=== PATIENT | female | born 1950 | race Caucasian/White ===

== ENCOUNTER 2016-11-21 15:05 | Emergency (ER) | payer MEDICARE, MEDICAID ==
[2016-11-21] MEDS ORDERED: ACETAMINOPHEN 325 MG TAB As Ordered ONE (17:42)
--- NOTE | 2016-11-21 17:54 | REP ---
Clinical: Headache. Comparison: 01/16/2015. Findings: Age-related atrophy and microvascular ischemic changes are appreciated. The ventricles and sulci are symmetric. Pineda-white differentiation is maintained. There is no evidence for acute intracranial hemorrhage, mass/mass effect, pathology or infarction. No extra-axial fluid collection. Calvarium is intact. Paranasal sinuses and mastoid air cells are clear. Impression: Age related atrophy and microvascular ischemic changes. No acute intracranial hemorrhage, infarction, or mass/mass effect. Signed by Haim Cee MD 11/21/2016 05:46 P
[2016-11-21 18:28] LABS: BASO % 0.7 % (0.0-1.0); EOS # 0.2 K/mm3 (0.0-0.50); LARGE UNSTAINED CELL # 0.2 K/mm3 (0.0-0.4); LARGE UNSTAINED CELL % 2.1 % (0.0-4.0); LYMPH # 1.8 K/mm3 (1.5-4.5); LYMPH % 24.8 % (24.0-44.0); MEAN CORPUSCULAR HEMOGLOBIN 28.2 pg (27.0-33.0); MEAN CORPUSCULAR HGB CONC 35.3 g/dl (32.0-36.5); MEAN CORPUSCULAR VOLUME 79.9 fl (80.0-96.0); MONO # 0.4 K/mm3 (0.0-0.8); MONO % 6.1 % (0.0-5.0); NEUTROPHILS # 4.5 K/mm3 (1.8-7.7); NEUTROPHILS % 63.3 % (36.0-66.0); PLATELET COUNT, AUTOMATED 171 k/mm3 (150-450); RED CELL DISTRIBUTION WIDTH 13.4 % (11.5-14.5); WHITE BLOOD COUNT 7.1 K/mm3 (4.0-10.0)
[2016-11-21 18:47] LABS: CALCIUM LEVEL 9.1 MG/DL (8.8-10.2); CREATININE FOR GFR 1.09 MG/DL (0.55-1.02); GLOMERULAR FILTRATION RATE 53.3 (>45); POTASSIUM SERUM 3.6 MEQ/L (3.5-5.1)
--- NOTE | 2016-11-21 19:14 | EDDOCDS ---
Nurse's Notes [facility] Name: Fabby Dickens Age: 66 yrs Sex: Female : 1950 Arrival Date: 11/21/2016 Time: 15:05 Bed 13 Private MD: Mel Baker Diagnosis: Headache Presentation: 11/21 15:08 Presenting complaint: Patient states: Patient complaint of headache X 5 DAYS. Blood b sugar 245. Patient insulin dependent. Denies chest pain or respiratory difficulty. Patient reports shoveling snow 5 days ago and since then lower back bothering patient. This patient has no additional risk factors. Adult Sepsis Screening: The patient does not have new or worsening altered mentation. Patient's respiratory rate is less than 22. Systolic blood pressure is greater than 100. Patient has a qSOFA score of 0- Negative Sepsis Screen. Suicide/Homicide risk assessment- the patient denies having any suicidal and/or homicidal ideations and does not present with any other emotional, behavioral or mental health complaints. Status: Patient is not a building services engineer or dependent. Transition of care: patient was not received from another setting of care. 15:08 Acuity: CYNTHIA Level 4 [facility] 15:08 Method Of Arrival: Ambulance [facility] Triage Assessment: 15:20 Headache History: This patient has a history of headaches and the character of this [facility] headache is like all previous headaches. General: Appears in no apparent distress, comfortable, Behavior is appropriate for age, cooperative. Pain: Location: head, posterior chest and back Pain currently is 9 out of 10 on a pain scale. Pain began gradually Also complains of no other associated symptoms. Neurological: Level of Consciousness is awake, alert, obeys commands, Oriented to person, place, time, Speech is normal, Facial symmetry appears normal, Facial symmetry: tongue is midline. Cardiovascular: Capillary refill < 3 seconds Heart tones present Pulses are all present. Rhythm is regular. Respiratory: Airway is patent Respiratory effort is even, unlabored, Respiratory pattern is regular, symmetrical, Breath sounds are diminished bilaterally. GI: Abdomen is non- distended Bowel sounds present X 4 quads. Abd is soft and non tender X 4 quads. Derm: Skin is pink, warm & dry. Musculoskeletal: Range of motion limited in all extremities. Historical: - Allergies: Lisinopril; - Home Meds: 1. victoza 18 mg daily 0.2 ml subcut once daily 2. levemir 16 unit daily 3. fluticasone 27.5 mg daily 1 puff each nostril 4. loratadine 10 mg Oral tab 1 tab once daily 5. ProAir HFA inhalation 108 mcg/act inhalation 2 puffs every 4-6 hours 6. omeprazole 40 mg Oral cpDR 1 cap once daily 7. Levoxyl 25 mcg Oral tab 1 tab once daily 8. simvastatin 20 mg Oral tab 1 tab once daily 9. metoprolol tartrate 25 mg Oral tab 1 tab 2 times per day 10. potassium chloride 10 mEq Oral cpER 1 cap 2 times per day 11. chlorthalidone 25 mg Oral tab .5 tab once daily 12. metformin 1,000 mg Oral tr24 1 tab once daily 13. aspirin 81 mg Oral tab 1 tab once daily 14. acetaminophen 500 mg Oral tab 1 tab as needed 15. tizanidine 4 mg oral cap 1 cap 3 times per day 16. meclizine 25 mg Oral tab 1 tab 3 times per day 17. gabapentin 100 mg Oral tab 200 mg three times a day 18. alendronate 70 mg oral tab 1 tab once wkly 19. Caltrate 600 + D 600 mg (1,500 mg)-800 unit oral chew daily 20. Drisdol 50,000 unit Oral cap 1 cap every two weeks 21. Lac-Hydrin 12 % Topical lotn twice a day 22. Sertraline 200 mg daily - PMHx: Hypertension; vitamin d deficiency; Diabetes - IDDM: controlled; Hypothyroidism; hyperlipidemia; depressive disorder; allergic rhinitis; GERD; osteopenia; appendicitis; 2 TIA's; - PSHx: both feet surgery; Appendectomy; Hysterectomy; fingetr surgery; Carpal Tunnel Repair- Left; - Social history: Smoking status: Patient states was never smoker of tobacco. Patient is hearing impaired. - Family history: Not pertinent. - : The pt / caregiver states he / she is not on anticoagulants. Home medication list is obtained from the patient. - Exposure Risk Screening:: None identified. Screenin:28 Screening information is obtained from the patient, family members. Fall risk: No risks jo3 identified. Assistance ADL's: requires no assistance with activities of daily living. Abuse/DV Screen: The patient / caregiver reports he/she is: not in a situation that causes fear, pain or injury. Nutritional screening: No deficits noted. Advance Directives: There is no active DNR order. home support is adequate. Assessment: 16:35 General: Appears in no apparent distress, Behavior is appropriate for age, cooperative. jo3 Neurological: Level of Consciousness is awake, alert, Oriented to person, place, time. Respiratory: Airway is patent Respiratory effort is even, unlabored. Derm: Skin is pink, warm & dry. 17:40 General: Appears in no apparent distress, comfortable, Behavior is appropriate for age, jo3 cooperative. Neurological: Level of Consciousness is awake, alert, Oriented to person, place, time. Respiratory: Airway is patent Respiratory effort is even, unlabored. Derm: Skin is pink, warm & dry. 18:50 General: Appears in no apparent distress, comfortable, Behavior is appropriate for age, jo3 cooperative. Neurological: Level of Consciousness is awake, alert, Oriented to person, place, time. Respiratory: Airway is patent Respiratory effort is even, unlabored. Derm: Skin is pink, warm & dry. 19:12 Reassessment: Patient appears in no apparent distress at this time. Patient denies pain tm5 at this time. Patient states feeling better. Patient states symptoms have improved. PT EATING BOXED LUNCH THAT WAS PROVIDED TO HER, VOICES NO COMPLAINTS AT THIS TIME, FAMILY MEMBER WITH HER TO PROVIDE HER A RIDE HOME . Vital Signs: 15:13 BP 145 / 74; Pulse 83; Resp 18; Temp 97.3; Pulse Ox 93% on R/A; Weight 83.01 kg (R); rn1 Height 5 ft. 3 in. (160.02 cm) (R); Pain 9/10; 19:12 BP 142 / 74; Pulse 74; Resp 18; Temp 98.4(O); Pulse Ox 98% on R/A; Pain 0/10; tm5 15:13 Body Mass Index 32.42 (83.01 kg, 160.02 cm) rn1 Vitals: 15:20 Log In Time N/A - ambulance arrival. [facility] ED Course: 15:06 Patient visited by Beatriz Dumas, Music Educator. lbd 15:06 Patient moved to [facility] lbd 15:07 Mel Baker FNP is Private Physician. lbd 15:07 Patient moved to 13 lbd 15:10 Triage Initiated [facility] 15:58 Irina Franklin[facility] jo4 15:[address] MD is Attending Physician. jo4 16:25 Patient visited by Jay Jay Payne PCA. jlf 16:58 Patient visited by Jay Jay Payne PCA. jlf 17:28 The patient / caregiver is instructed regarding the plan of care and ED course. jo3 17:29 Patient visited by Olivia Wiggins,JOSEPHINE. jo3 17:39 Patient visited by Bhavana Street MD. sd1 18:12 CT Head Without Contrast Returned. EDMS 18:16 BMP Sent. jmb 18:16 CBC with Diff Sent. jmb 18:17 Patient visited by Olivia Wiggins RN. jo3 18:19 [facility] Payment Agreement was scanned into [employer] and attached to record. gjb 18:46 Patient visited by Jay Jay Payne PCA. jlf 18:50 No IV's were initiated during this patient's visit. No procedures done that require jo3 assistance. 19:02 Mel Baker FNP is Referral Physician. jo4 19:06 Patient visited by Lola Day RN. tm5 19:06 Report received from Olivia BURTON, assumed care of pt at this time. tm5 19:12 Patient visited by Lola Day RN. tm5 Administered Medications: 17:45 Drug: Acetaminophen 325 mg [acetaminophen 325 mg tablet (1 tabs)] Route: PO; js13 Order Results: Lab Order: CBC with Diff; SPEC'M 11/21/16 18:15 Test: WHITE BLOOD COUNT; Value: 7.1; Range: 4.0-10.0; Units: K/mm3; Status: F Test: RED BLOOD COUNT; Value: 5.08; Range: 4.00-5.40; Units: M/mm3; Status: F Test: HEMOGLOBIN; Value: 14.3; Range: 12.0-16.0; Units: g/dl; Status: F Test: HEMATOCRIT; Value: 40.6; Range: 36.0-47.0; Units: %; Status: F Test: MEAN CORPUSCULAR VOLUME; Value: 79.9; Range: 80.0-96.0; Abnormal: Below low normal; Units: fl; Status: F Test: MEAN CORPUSCULAR HEMOGLOBIN; Value: 28.2; Range: 27.0-33.0; Units: pg; Status: F Test: MEAN CORPUSCULAR HGB CONC; Value: 35.3; Range: 32.0-36.5; Units: g/dl; Status: F Test: RED CELL DISTRIBUTION WIDTH; Value: 13.4; Range: 11.5-14.5; Units: %; Status: F Test: PLATELET COUNT, AUTOMATED; Value: 171; Range: 150-450; Units: k/mm3; Status: F Test: NEUTROPHILS %; Value: 63.3; Range: 36.0-66.0; Units: %; Status: F Test: LYMPH %; Value: 24.8; Range: 24.0-44.0; Units: %; Status: F Test: MONO %; Value: 6.1; Range: 0.0-5.0; Abnormal: Above high normal; Units: %; Status: F Test: EOS %; Value: 3.0; Range: 0.0-3.0; Units: %; Status: F Test: BASO %; Value: 0.7; Range: 0.0-1.0; Units: %; Status: F Test: LARGE UNSTAINED CELL %; Value: 2.1; Range: 0.0-4.0; Units: %; Status: F Test: NEUTROPHILS #; Value: 4.5; Range: 1.8-7.7; Units: K/mm3; Status: F Test: LYMPH #; Value: 1.8; Range: 1.5-4.5; Units: K/mm3; Status: F Test: MONO #; Value: 0.4; Range: 0.0-0.8; Units: K/mm3; Status: F Test: EOS #; Value: 0.2; Range: 0.0-0.50; Units: K/mm3; Status: F Test: BASO #; Value: 0.0; Range: 0.0-0.2; Units: K/mm3; Status: F Test: LARGE UNSTAINED CELL #; Value: 0.2; Range: 0.0-0.4; Units: K/mm3; Status: F Lab Order: [facility]; SPEC'M 11/21/16 18:15 Test: GLUCOSE, FASTING; Value: 194; Range: 80-110; Abnormal: Above high normal; Units: MG/DL; Status: F Test: BLOOD UREA NITROGEN; Value: 22; Range: 7-18; Abnormal: Above high normal; Units: MG/DL; Status: F Test: CREATININE FOR GFR; Value: 1.09; Range: 0.55-1.02; Abnormal: Above high normal; Units: MG/DL; Status: F Test: GLOMERULAR FILTRATION RATE; Value: 53.3; Range: >45; Status: F Test: SODIUM LEVEL; Value: 139; Range: 136-145; Units: MEQ/L; Status: F Test: POTASSIUM SERUM; Value: 3.6; Range: 3.5-5.1; Units: MEQ/L; Status: F Test: CHLORIDE LEVEL; Value: 103; Range: 98-107; Units: MEQ/L; Status: F Test: CARBON DIOXIDE LEVEL; Value: 28; Range: 21-32; Units: MEQ/L; Status: F Test: ANION GAP; Value: 8; Range: 8-16; Units: MEQ/L; Status: F Test: CALCIUM LEVEL; Value: 9.1; Range: 8.8-10.2; Units: MG/DL; Status: F Test Note: ; Units are mL/min/1.73 m2 Chronic Kidney Disease Staging per NKF: Stage I & II GFR >=60 Normal to Mildly Decreased Stage III GFR 30-59 Moderately Decreased Stage IV GFR 15-29 Severely Decreased Stage V GFR <15 Very Little GFR Left ESRD GFR <15 on LANDSCAPE DRAFTER Radiology Order: CT Head Without Contrast Test: CT Head Without Contrast REASON FOR EXAMINATION: Headache; Clinical: Headache.; ; Comparison: 01/16/2015.; ; Findings:; Age-related atrophy and microvascular ischemic changes are appreciated. The; ventricles and sulci are symmetric. Pineda-white differentiation is maintained.; There is no evidence for acute intracranial hemorrhage, mass/mass effect,; pathology or infarction. No extra-axial fluid collection. Calvarium is intact.; Paranasal sinuses and mastoid air cells are clear.; ; Impression:; Age related atrophy and microvascular ischemic changes.; No acute intracranial hemorrhage, infarction, or mass/mass effect.; ; ; Signed by; Haim Cee MD 11/21/2016 05:46 P; Outcome: 19:02 Discharge ordered by Provider. jo4 19:12 Discharge Assessment: Patient awake, alert and oriented x 3. No cognitive and/or tm5 functional deficits noted. Patient verbalized understanding of disposition instructions. patient administered narcotics -. 19:13 Discharge Assessment: patient administered narcotics - no. The following High Risk tm5 Discharge criteria are identified: None. Discharged to home ambulatory, with family. Condition: good Condition: stable Condition: improved. Discharge instructions given to patient, Instructed on discharge instructions, follow up and referral plans. Demonstrated understanding of instructions. CT Study completed. Property :Personal belongings accompany Pt. 19:14 Patient left the ED. tm5 Signatures: Dispatcher [employer] EDMS Bhavana Street MD MD sd1 Beatriz Dumas, Music Educator Unit lbd Olivia Wiggins,RN RN jo3 Olivia Jamison,RN RN js13 Chico Harper,RN RN Jay Jay Islas, SUSIE C++ QUANT DEVELOPER Fernando Viramontes rn1 Yoselin Horner Jane, DO DO jo4 Lola Day,RN RN tm5 KENN
--- NOTE | 2016-11-21 19:14 | EDDOCDS ---
Physician Documentation [facility] Name: Fabby Dickens Age: 66 yrs Sex: Female : 1950 Arrival Date: 11/21/2016 Time: 15:05 Bed 13 Private MD: Mel Bkaer Disposition: 11/21/16 19:02 Discharged to Home/Self Care. Impression: Headache. - Condition is Stable. - Discharge Instructions: General Headache Without Cause. - Medication Reconciliation, Local Pharmacy Hours form. - Follow up: Mel Baker FNP; When: 1 week; Reason: Recheck today's complaints. - Problem is new. - Symptoms have improved. - Notes: You were evaluated in the emergency department for a headache. Laboratory results were within normal limits. Your blood sugar level had decreased to 194. Your head CT showed age related changes and no acute abnormalities. Pain medication was administered which provided some relief. Please follow-up with Mel Baker in 1 week. Historical: - Allergies: Lisinopril; - Home Meds: 1. victoza 18 mg daily 0.2 ml subcut once daily 2. levemir 16 unit daily 3. fluticasone 27.5 mg daily 1 puff each nostril 4. loratadine 10 mg Oral tab 1 tab once daily 5. ProAir HFA inhalation 108 mcg/act inhalation 2 puffs every 4-6 hours 6. omeprazole 40 mg Oral cpDR 1 cap once daily 7. Levoxyl 25 mcg Oral tab 1 tab once daily 8. simvastatin 20 mg Oral tab 1 tab once daily 9. metoprolol tartrate 25 mg Oral tab 1 tab 2 times per day 10. potassium chloride 10 mEq Oral cpER 1 cap 2 times per day 11. chlorthalidone 25 mg Oral tab .5 tab once daily 12. metformin 1,000 mg Oral tr24 1 tab once daily 13. aspirin 81 mg Oral tab 1 tab once daily 14. acetaminophen 500 mg Oral tab 1 tab as needed 15. tizanidine 4 mg oral cap 1 cap 3 times per day 16. meclizine 25 mg Oral tab 1 tab 3 times per day 17. gabapentin 100 mg Oral tab 200 mg three times a day 18. alendronate 70 mg oral tab 1 tab once wkly 19. Caltrate 600 + D 600 mg (1,500 mg)-800 unit oral chew daily 20. Drisdol 50,000 unit Oral cap 1 cap every two weeks 21. Lac-Hydrin 12 % Topical lotn twice a day 22. Sertraline 200 mg daily - PMHx: Hypertension; vitamin d deficiency; Diabetes - IDDM: controlled; Hypothyroidism; hyperlipidemia; depressive disorder; allergic rhinitis; GERD; osteopenia; appendicitis; 2 TIA's; - PSHx: both feet surgery; Appendectomy; Hysterectomy; fingetr surgery; Carpal Tunnel Repair- Left; - Social history: Smoking status: Patient states was never smoker of tobacco. Patient is hearing impaired. - Family history: Not pertinent. - : The pt / caregiver states he / she is not on anticoagulants. Home medication list is obtained from the patient. - Exposure Risk Screening:: None identified. Vital Signs: 11/21 15:13 BP 145 / 74; Pulse 83; Resp 18; Temp 97.3; Pulse Ox 93% on R/A; Weight 83.01 kg / rn1 183.01 lbs (R); Height 5 ft. 3 in. (160.02 cm) (R); Pain 9/10; 19:12 BP 142 / 74; Pulse 74; Resp 18; Temp 98.4(O); Pulse Ox 98% on R/A; Pain 0/10; tm5 15:13 Body Mass Index 32.42 (83.01 kg, 160.02 cm) rn1 MDM: 17:30 Acetaminophen Tablet 325 mg PO once ordered. jo4 17:32 CBC with Diff Ordered. EDMS 17:32 BMP Ordered. EDMS 17:39 CT Head Without Contrast Ordered. EDMS 18:19 [facility] Payment Agreement was scanned into [employer] and attached to record. gjb 18:19 Financial registration complete. gjb 18:23 CT Head Without Contrast Reviewed. jo4 18:31 CBC with Diff Reviewed. jo4 18:51 BMP Reviewed. jo4 Administered Medications: 17:45 Drug: Acetaminophen 325 mg [acetaminophen 325 mg tablet (1 tabs)] Route: PO; js13 Signatures: Dispatcher [employer] EDMS Olivia Wiggins RN RN jo3 Chico Harper RN RN jmb Beck, Gabriela banner [facility] Irina Franklin DO DO jo4 Lola Day RN RN tm5 Olivia Jamison RN js13 The chart was reviewed and I authenticate all verbal orders and agree with the evaluation and treatment provided.Corrections: (The following items were deleted from the chart) 17:39 17:31 CT Chest without contrast+CT ordered. EDMS EDMS Attachments: 18:19 [facility] Payment Agreement [email or web address]
--- NOTE | 2016-11-23 20:15 | EDDOCDS ---
Physician Documentation [facility] Name: Fabby Dickens Age: 66 yrs Sex: Female : 1950 Arrival Date: 11/21/2016 Time: 15:05 Bed 13 Private MD: Mel Baker Disposition: 11/21/16 19:02 Discharged to Home/Self Care. Impression: Headache. - Condition is Stable. - Discharge Instructions: General Headache Without Cause. - Medication Reconciliation, Local Pharmacy Hours form. - Follow up: Mel Baker FNP; When: 1 week; Reason: Recheck today's complaints. - Problem is new. - Symptoms have improved. - Notes: You were evaluated in the emergency department for a headache. Laboratory results were within normal limits. Your blood sugar level had decreased to 194. Your head CT showed age related changes and no acute abnormalities. Pain medication was administered which provided some relief. Please follow-up with Mel Baker in 1 week. Historical: - Allergies: Lisinopril; - Home Meds: 1. victoza 18 mg daily 0.2 ml subcut once daily 2. levemir 16 unit daily 3. fluticasone 27.5 mg daily 1 puff each nostril 4. loratadine 10 mg Oral tab 1 tab once daily 5. ProAir HFA inhalation 108 mcg/act inhalation 2 puffs every 4-6 hours 6. omeprazole 40 mg Oral cpDR 1 cap once daily 7. Levoxyl 25 mcg Oral tab 1 tab once daily 8. simvastatin 20 mg Oral tab 1 tab once daily 9. metoprolol tartrate 25 mg Oral tab 1 tab 2 times per day 10. potassium chloride 10 mEq Oral cpER 1 cap 2 times per day 11. chlorthalidone 25 mg Oral tab .5 tab once daily 12. metformin 1,000 mg Oral tr24 1 tab once daily 13. aspirin 81 mg Oral tab 1 tab once daily 14. acetaminophen 500 mg Oral tab 1 tab as needed 15. tizanidine 4 mg oral cap 1 cap 3 times per day 16. meclizine 25 mg Oral tab 1 tab 3 times per day 17. gabapentin 100 mg Oral tab 200 mg three times a day 18. alendronate 70 mg oral tab 1 tab once wkly 19. Caltrate 600 + D 600 mg (1,500 mg)-800 unit oral chew daily 20. Drisdol 50,000 unit Oral cap 1 cap every two weeks 21. Lac-Hydrin 12 % Topical lotn twice a day 22. Sertraline 200 mg daily - PMHx: Hypertension; vitamin d deficiency; Diabetes - IDDM: controlled; Hypothyroidism; hyperlipidemia; depressive disorder; allergic rhinitis; GERD; osteopenia; appendicitis; 2 TIA's; - PSHx: both feet surgery; Appendectomy; Hysterectomy; fingetr surgery; Carpal Tunnel Repair- Left; - Social history: Smoking status: Patient states was never smoker of tobacco. Patient is hearing impaired. - Family history: Not pertinent. - : The pt / caregiver states he / she is not on anticoagulants. Home medication list is obtained from the patient. - Exposure Risk Screening:: None identified. Vital Signs: 11/21 15:13 BP 145 / 74; Pulse 83; Resp 18; Temp 97.3; Pulse Ox 93% on R/A; Weight 83.01 kg / rn1 183.01 lbs (R); Height 5 ft. 3 in. (160.02 cm) (R); Pain 9/10; 19:12 BP 142 / 74; Pulse 74; Resp 18; Temp 98.4(O); Pulse Ox 98% on R/A; Pain 0/10; tm5 15:13 Body Mass Index 32.42 (83.01 kg, 160.02 cm) rn1 MDM: 17:30 Acetaminophen Tablet 325 mg PO once ordered. jo4 17:32 CBC with Diff Ordered. EDMS 17:32 BMP Ordered. EDMS 17:39 CT Head Without Contrast Ordered. EDMS 18:19 [facility] Payment Agreement was scanned into [employer] and attached to record. gjb 18:19 Financial registration complete. gjb 18:23 CT Head Without Contrast Reviewed. jo4 18:31 CBC with Diff Reviewed. jo4 18:51 BMP Reviewed. jo4 11/22 08:19 T-Sheet-- Draft Copy was scanned into [employer] and attached to record. [facility] Administered Medications: 11/21 17:45 Drug: Acetaminophen 325 mg [acetaminophen 325 mg tablet (1 tabs)] Route: PO; js13 Signatures: Dispatcher [employer] EDMS Olivia Wiggins RN RN jo3 Becker, Joshua, RN RN jmb Beck, Gabriela gjb Oosthuizen, Jane, DO DO jo4 Hoffert, Bhavana seh Matice,Lola,RN RN tm5 Olivia Jamison RN js13 The chart was reviewed and I authenticate all verbal orders and agree with the evaluation and treatment provided.Corrections: (The following items were deleted from the chart) 17:39 17:31 CT Chest without contrast+CT ordered. EDMS EDMS Attachments: 18:19 [facility] Payment Agreement olesya 11/22 08:19 T-Sheet-- Draft Copy [facility] Chart Complete MTDD
--- NOTE | 2016-11-23 20:15 | EDDOCDS ---
Physician Documentation [facility] Name: Fabby Dickens Age: 66 yrs Sex: Female : 1950 Arrival Date: 11/21/2016 Time: 15:05 Bed 13 Private MD: Mel Baker Disposition: 11/21/16 19:02 Discharged to Home/Self Care. Impression: Headache. - Condition is Stable. - Discharge Instructions: General Headache Without Cause. - Medication Reconciliation, Local Pharmacy Hours form. - Follow up: Mel Baker FNP; When: 1 week; Reason: Recheck today's complaints. - Problem is new. - Symptoms have improved. - Notes: You were evaluated in the emergency department for a headache. Laboratory results were within normal limits. Your blood sugar level had decreased to 194. Your head CT showed age related changes and no acute abnormalities. Pain medication was administered which provided some relief. Please follow-up with Mel Baker in 1 week. Historical: - Allergies: Lisinopril; - Home Meds: 1. victoza 18 mg daily 0.2 ml subcut once daily 2. levemir 16 unit daily 3. fluticasone 27.5 mg daily 1 puff each nostril 4. loratadine 10 mg Oral tab 1 tab once daily 5. ProAir HFA inhalation 108 mcg/act inhalation 2 puffs every 4-6 hours 6. omeprazole 40 mg Oral cpDR 1 cap once daily 7. Levoxyl 25 mcg Oral tab 1 tab once daily 8. simvastatin 20 mg Oral tab 1 tab once daily 9. metoprolol tartrate 25 mg Oral tab 1 tab 2 times per day 10. potassium chloride 10 mEq Oral cpER 1 cap 2 times per day 11. chlorthalidone 25 mg Oral tab .5 tab once daily 12. metformin 1,000 mg Oral tr24 1 tab once daily 13. aspirin 81 mg Oral tab 1 tab once daily 14. acetaminophen 500 mg Oral tab 1 tab as needed 15. tizanidine 4 mg oral cap 1 cap 3 times per day 16. meclizine 25 mg Oral tab 1 tab 3 times per day 17. gabapentin 100 mg Oral tab 200 mg three times a day 18. alendronate 70 mg oral tab 1 tab once wkly 19. Caltrate 600 + D 600 mg (1,500 mg)-800 unit oral chew daily 20. Drisdol 50,000 unit Oral cap 1 cap every two weeks 21. Lac-Hydrin 12 % Topical lotn twice a day 22. Sertraline 200 mg daily - PMHx: Hypertension; vitamin d deficiency; Diabetes - IDDM: controlled; Hypothyroidism; hyperlipidemia; depressive disorder; allergic rhinitis; GERD; osteopenia; appendicitis; 2 TIA's; - PSHx: both feet surgery; Appendectomy; Hysterectomy; fingetr surgery; Carpal Tunnel Repair- Left; - Social history: Smoking status: Patient states was never smoker of tobacco. Patient is hearing impaired. - Family history: Not pertinent. - : The pt / caregiver states he / she is not on anticoagulants. Home medication list is obtained from the patient. - Exposure Risk Screening:: None identified. Vital Signs: 11/21 15:13 BP 145 / 74; Pulse 83; Resp 18; Temp 97.3; Pulse Ox 93% on R/A; Weight 83.01 kg / rn1 183.01 lbs (R); Height 5 ft. 3 in. (160.02 cm) (R); Pain 9/10; 19:12 BP 142 / 74; Pulse 74; Resp 18; Temp 98.4(O); Pulse Ox 98% on R/A; Pain 0/10; tm5 15:13 Body Mass Index 32.42 (83.01 kg, 160.02 cm) rn1 MDM: 17:30 Acetaminophen Tablet 325 mg PO once ordered. jo4 17:32 CBC with Diff Ordered. EDMS 17:32 BMP Ordered. EDMS 17:39 CT Head Without Contrast Ordered. EDMS 18:19 [facility] Payment Agreement was scanned into [employer] and attached to record. gjb 18:19 Financial registration complete. gjb 18:23 CT Head Without Contrast Reviewed. jo4 18:31 CBC with Diff Reviewed. jo4 18:51 BMP Reviewed. jo4 11/22 08:19 T-Sheet-- Draft Copy was scanned into [employer] and attached to record. [facility] Administered Medications: 11/21 17:45 Drug: Acetaminophen 325 mg [acetaminophen 325 mg tablet (1 tabs)] Route: PO; js13 Signatures: Dispatcher [employer] EDMS Olivia Wiggins RN RN jo3 Becker, Joshua, RN RN jmb Beck, Gabriela gjb Oosthuizen, Jane, DO DO jo4 Hoffert, Bhavana seh Matice,Lola,RN RN tm5 Olivia Jamison RN js13 The chart was reviewed and I authenticate all verbal orders and agree with the evaluation and treatment provided.Corrections: (The following items were deleted from the chart) 17:39 17:31 CT Chest without contrast+CT ordered. EDMS EDMS Attachments: 18:19 [facility] Payment Agreement olesya 11/22 08:19 T-Sheet-- Draft Copy [facility] Chart Complete MTDD
--- NOTE | 2016-11-23 20:15 | EDDOCDS ---
Nurse's Notes [facility] Name: Fabby Dickens Age: 66 yrs Sex: Female : 1950 Arrival Date: 11/21/2016 Time: 15:05 Bed 13 Private MD: Mel Baker Diagnosis: Headache Presentation: 11/21 15:08 Presenting complaint: Patient states: Patient complaint of headache X 5 DAYS. Blood b sugar 245. Patient insulin dependent. Denies chest pain or respiratory difficulty. Patient reports shoveling snow 5 days ago and since then lower back bothering patient. This patient has no additional risk factors. Adult Sepsis Screening: The patient does not have new or worsening altered mentation. Patient's respiratory rate is less than 22. Systolic blood pressure is greater than 100. Patient has a qSOFA score of 0- Negative Sepsis Screen. Suicide/Homicide risk assessment- the patient denies having any suicidal and/or homicidal ideations and does not present with any other emotional, behavioral or mental health complaints. Status: Patient is not a service planner or dependent. Transition of care: patient was not received from another setting of care. 15:08 Acuity: CYNTHIA Level 4 [facility] 15:08 Method Of Arrival: Ambulance [facility] Triage Assessment: 15:20 Headache History: This patient has a history of headaches and the character of this [facility] headache is like all previous headaches. General: Appears in no apparent distress, comfortable, Behavior is appropriate for age, cooperative. Pain: Location: head, posterior chest and back Pain currently is 9 out of 10 on a pain scale. Pain began gradually Also complains of no other associated symptoms. Neurological: Level of Consciousness is awake, alert, obeys commands, Oriented to person, place, time, Speech is normal, Facial symmetry appears normal, Facial symmetry: tongue is midline. Cardiovascular: Capillary refill < 3 seconds Heart tones present Pulses are all present. Rhythm is regular. Respiratory: Airway is patent Respiratory effort is even, unlabored, Respiratory pattern is regular, symmetrical, Breath sounds are diminished bilaterally. GI: Abdomen is non- distended Bowel sounds present X 4 quads. Abd is soft and non tender X 4 quads. Derm: Skin is pink, warm & dry. Musculoskeletal: Range of motion limited in all extremities. Historical: - Allergies: Lisinopril; - Home Meds: 1. victoza 18 mg daily 0.2 ml subcut once daily 2. levemir 16 unit daily 3. fluticasone 27.5 mg daily 1 puff each nostril 4. loratadine 10 mg Oral tab 1 tab once daily 5. ProAir HFA inhalation 108 mcg/act inhalation 2 puffs every 4-6 hours 6. omeprazole 40 mg Oral cpDR 1 cap once daily 7. Levoxyl 25 mcg Oral tab 1 tab once daily 8. simvastatin 20 mg Oral tab 1 tab once daily 9. metoprolol tartrate 25 mg Oral tab 1 tab 2 times per day 10. potassium chloride 10 mEq Oral cpER 1 cap 2 times per day 11. chlorthalidone 25 mg Oral tab .5 tab once daily 12. metformin 1,000 mg Oral tr24 1 tab once daily 13. aspirin 81 mg Oral tab 1 tab once daily 14. acetaminophen 500 mg Oral tab 1 tab as needed 15. tizanidine 4 mg oral cap 1 cap 3 times per day 16. meclizine 25 mg Oral tab 1 tab 3 times per day 17. gabapentin 100 mg Oral tab 200 mg three times a day 18. alendronate 70 mg oral tab 1 tab once wkly 19. Caltrate 600 + D 600 mg (1,500 mg)-800 unit oral chew daily 20. Drisdol 50,000 unit Oral cap 1 cap every two weeks 21. Lac-Hydrin 12 % Topical lotn twice a day 22. Sertraline 200 mg daily - PMHx: Hypertension; vitamin d deficiency; Diabetes - IDDM: controlled; Hypothyroidism; hyperlipidemia; depressive disorder; allergic rhinitis; GERD; osteopenia; appendicitis; 2 TIA's; - PSHx: both feet surgery; Appendectomy; Hysterectomy; fingetr surgery; Carpal Tunnel Repair- Left; - Social history: Smoking status: Patient states was never smoker of tobacco. Patient is hearing impaired. - Family history: Not pertinent. - : The pt / caregiver states he / she is not on anticoagulants. Home medication list is obtained from the patient. - Exposure Risk Screening:: None identified. Screenin:28 Screening information is obtained from the patient, family members. Fall risk: No risks jo3 identified. Assistance ADL's: requires no assistance with activities of daily living. Abuse/DV Screen: The patient / caregiver reports he/she is: not in a situation that causes fear, pain or injury. Nutritional screening: No deficits noted. Advance Directives: There is no active DNR order. home support is adequate. Assessment: 16:35 General: Appears in no apparent distress, Behavior is appropriate for age, cooperative. jo3 Neurological: Level of Consciousness is awake, alert, Oriented to person, place, time. Respiratory: Airway is patent Respiratory effort is even, unlabored. Derm: Skin is pink, warm & dry. 17:40 General: Appears in no apparent distress, comfortable, Behavior is appropriate for age, jo3 cooperative. Neurological: Level of Consciousness is awake, alert, Oriented to person, place, time. Respiratory: Airway is patent Respiratory effort is even, unlabored. Derm: Skin is pink, warm & dry. 18:50 General: Appears in no apparent distress, comfortable, Behavior is appropriate for age, jo3 cooperative. Neurological: Level of Consciousness is awake, alert, Oriented to person, place, time. Respiratory: Airway is patent Respiratory effort is even, unlabored. Derm: Skin is pink, warm & dry. 19:12 Reassessment: Patient appears in no apparent distress at this time. Patient denies pain tm5 at this time. Patient states feeling better. Patient states symptoms have improved. PT EATING BOXED LUNCH THAT WAS PROVIDED TO HER, VOICES NO COMPLAINTS AT THIS TIME, FAMILY MEMBER WITH HER TO PROVIDE HER A RIDE HOME . Vital Signs: 15:13 BP 145 / 74; Pulse 83; Resp 18; Temp 97.3; Pulse Ox 93% on R/A; Weight 83.01 kg (R); rn1 Height 5 ft. 3 in. (160.02 cm) (R); Pain 9/10; 19:12 BP 142 / 74; Pulse 74; Resp 18; Temp 98.4(O); Pulse Ox 98% on R/A; Pain 0/10; tm5 15:13 Body Mass Index 32.42 (83.01 kg, 160.02 cm) rn1 Vitals: 15:20 Log In Time N/A - ambulance arrival. [facility] ED Course: 15:06 Patient visited by Beatriz Dumas, Director Of Rot[employer]. lbd 15:06 Patient moved to [facility] lbd 15:07 Mel Baker FNP is Private Physician. lbd 15:07 Patient moved to 13 lbd 15:10 Triage Initiated [facility] 15:58 Irina Franklin, DO is [facility]. jo4 15:[address] MD is Attending Physician. jo4 16:25 Patient visited by Jay Jay Payne PCA. jlf 16:58 Patient visited by Jay Jay Payne PCA. jlf 17:28 The patient / caregiver is instructed regarding the plan of care and ED course. jo3 17:29 Patient visited by Olivia Wiggins,JOSEPHINE. jo3 17:39 Patient visited by Bhavana Street MD. sd1 18:12 CT Head Without Contrast Returned. EDMS 18:16 BMP Sent. jmb 18:16 CBC with Diff Sent. jmb 18:17 Patient visited by Olivia Wiggins RN. jo3 18:19 [facility] Payment Agreement was scanned into [employer] and attached to record. gjb 18:46 Patient visited by Jay Jay Payne PCA. jlf 18:50 No IV's were initiated during this patient's visit. No procedures done that require jo3 assistance. 19:02 Mel Baker FNP is Referral Physician. jo4 19:06 Patient visited by Lola Day RN. tm5 19:06 Report received from Olivia BURTON, assumed care of pt at this time. tm5 19:12 Patient visited by Lola Day RN. tm5 11/22 08:19 T-Sheet-- Draft Copy was scanned into [employer] and attached to record. seh Administered Medications: 11/21 17:45 Drug: Acetaminophen 325 mg [acetaminophen 325 mg tablet (1 tabs)] Route: PO; js13 Order Results: Lab Order: CBC with Diff; SPEC'M 11/21/16 18:15 Test: WHITE BLOOD COUNT; Value: 7.1; Range: 4.0-10.0; Units: K/mm3; Status: F Test: RED BLOOD COUNT; Value: 5.08; Range: 4.00-5.40; Units: M/mm3; Status: F Test: HEMOGLOBIN; Value: 14.3; Range: 12.0-16.0; Units: g/dl; Status: F Test: HEMATOCRIT; Value: 40.6; Range: 36.0-47.0; Units: %; Status: F Test: MEAN CORPUSCULAR VOLUME; Value: 79.9; Range: 80.0-96.0; Abnormal: Below low normal; Units: fl; Status: F Test: MEAN CORPUSCULAR HEMOGLOBIN; Value: 28.2; Range: 27.0-33.0; Units: pg; Status: F Test: MEAN CORPUSCULAR HGB CONC; Value: 35.3; Range: 32.0-36.5; Units: g/dl; Status: F Test: RED CELL DISTRIBUTION WIDTH; Value: 13.4; Range: 11.5-14.5; Units: %; Status: F Test: PLATELET COUNT, AUTOMATED; Value: 171; Range: 150-450; Units: k/mm3; Status: F Test: NEUTROPHILS %; Value: 63.3; Range: 36.0-66.0; Units: %; Status: F Test: LYMPH %; Value: 24.8; Range: 24.0-44.0; Units: %; Status: F Test: MONO %; Value: 6.1; Range: 0.0-5.0; Abnormal: Above high normal; Units: %; Status: F Test: EOS %; Value: 3.0; Range: 0.0-3.0; Units: %; Status: F Test: BASO %; Value: 0.7; Range: 0.0-1.0; Units: %; Status: F Test: LARGE UNSTAINED CELL %; Value: 2.1; Range: 0.0-4.0; Units: %; Status: F Test: NEUTROPHILS #; Value: 4.5; Range: 1.8-7.7; Units: K/mm3; Status: F Test: LYMPH #; Value: 1.8; Range: 1.5-4.5; Units: K/mm3; Status: F Test: MONO #; Value: 0.4; Range: 0.0-0.8; Units: K/mm3; Status: F Test: EOS #; Value: 0.2; Range: 0.0-0.50; Units: K/mm3; Status: F Test: BASO #; Value: 0.0; Range: 0.0-0.2; Units: K/mm3; Status: F Test: LARGE UNSTAINED CELL #; Value: 0.2; Range: 0.0-0.4; Units: K/mm3; Status: F Lab Order: STORM SPEC'M 11/21/16 18:15 Test: GLUCOSE, FASTING; Value: 194; Range: 80-110; Abnormal: Above high normal; Units: MG/DL; Status: F Test: BLOOD UREA NITROGEN; Value: 22; Range: 7-18; Abnormal: Above high normal; Units: MG/DL; Status: F Test: CREATININE FOR GFR; Value: 1.09; Range: 0.55-1.02; Abnormal: Above high normal; Units: MG/DL; Status: F Test: GLOMERULAR FILTRATION RATE; Value: 53.3; Range: >45; Status: F Test: SODIUM LEVEL; Value: 139; Range: 136-145; Units: MEQ/L; Status: F Test: POTASSIUM SERUM; Value: 3.6; Range: 3.5-5.1; Units: MEQ/L; Status: F Test: CHLORIDE LEVEL; Value: 103; Range: 98-107; Units: MEQ/L; Status: F Test: CARBON DIOXIDE LEVEL; Value: 28; Range: 21-32; Units: MEQ/L; Status: F Test: ANION GAP; Value: 8; Range: 8-16; Units: MEQ/L; Status: F Test: CALCIUM LEVEL; Value: 9.1; Range: 8.8-10.2; Units: MG/DL; Status: F Test Note: ; Units are mL/min/1.73 m2 Chronic Kidney Disease Staging per NKF: Stage I & II GFR >=60 Normal to Mildly Decreased Stage III GFR 30-59 Moderately Decreased Stage IV GFR 15-29 Severely Decreased Stage V GFR <15 Very Little GFR Left ESRD GFR <15 on MATERIAL HANDLER 2ND SHIFT Radiology Order: CT Head Without Contrast Test: CT Head Without Contrast REASON FOR EXAMINATION: Headache; Clinical: Headache.; ; Comparison: 01/16/2015.; ; Findings:; Age-related atrophy and microvascular ischemic changes are appreciated. The; ventricles and sulci are symmetric. Pineda-white differentiation is maintained.; There is no evidence for acute intracranial hemorrhage, mass/mass effect,; pathology or infarction. No extra-axial fluid collection. Calvarium is intact.; Paranasal sinuses and mastoid air cells are clear.; ; Impression:; Age related atrophy and microvascular ischemic changes.; No acute intracranial hemorrhage, infarction, or mass/mass effect.; ; ; Signed by; Haim Cee MD 11/21/2016 05:46 P; Outcome: 19:02 Discharge ordered by Provider. jo4 19:12 Discharge Assessment: Patient awake, alert and oriented x 3. No cognitive and/or tm5 functional deficits noted. Patient verbalized understanding of disposition instructions. patient administered narcotics -. 19:13 Discharge Assessment: patient administered narcotics - no. The following High Risk tm5 Discharge criteria are identified: None. Discharged to home ambulatory, with family. Condition: good Condition: stable Condition: improved. Discharge instructions given to patient, Instructed on discharge instructions, follow up and referral plans. Demonstrated understanding of instructions. CT Study completed. Property :Personal belongings accompany Pt. 19:14 Patient left the ED. tm5 Signatures: Dispatcher [employer] EDMS Bhavana Street MD MD sd1 Beatriz Dumas, Director Of Rot[employer] Unit lbd Olivia Wiggins,RN RN jo3 Olivia Jamison,RN RN Chico Agrawal,RN RN Jay Jay Islas, SUSIE RAW FINISH MILL OPERATOR Fernando Viramontes rn1 Yoselin Horner Jane, DO DO jo4 Hoffert, Sarah seh Matice, Tonya,RN RN tm5 Chart Complete MTDCheo
== END 2016-11-21 19:14 | disposition home or self-care (01) ==
LOC: M ED 15:05
DX: R51 Headache (principal); I10 Essential (primary) hypertension; E55.9 Vitamin D deficiency, unspecified; E11.9 Type 2 diabetes mellitus without complications; E03.9 Hypothyroidism, unspecified; E78.5 Hyperlipidemia, unspecified; F32.9 Major depressive disorder, single episode, unspecified; J30.9 Allergic rhinitis, unspecified; K21.9 Gastro-esophageal reflux disease without esophagitis; M85.80 Other specified disorders of bone density and structure, unspecified site; Z86.73 Personal history of transient ischemic attack (TIA), and cerebral infarction without residual deficits; Z79.51 Long term (current) use of inhaled steroids; Z79.899 Other long term (current) drug therapy; Z79.82 Long term (current) use of aspirin; Z79.4 Long term (current) use of insulin; Z88.8 Allergy status to other drugs, medicaments and biological substances

== ENCOUNTER → 2016-12-02 | Outpatient (REF) | payer MEDICARE, MEDICAID ==
[2016-12-02 15:59] LABS: BASO # 0.1 K/mm3 (0.0-0.2); BASO % 0.9 % (0.0-1.0); EOS # 0.1 K/mm3 (0.0-0.50); EOS % 1.8 % (0.0-3.0); LARGE UNSTAINED CELL # 0.2 K/mm3 (0.0-0.4); LYMPH # 2.3 K/mm3 (1.5-4.5); LYMPH % 29.7 % (24.0-44.0); MEAN CORPUSCULAR HEMOGLOBIN 26.8 pg (27.0-33.0); MEAN CORPUSCULAR HGB CONC 33.9 g/dl (32.0-36.5); MONO # 0.5 K/mm3 (0.0-0.8); MONO % 6.1 % (0.0-5.0); NEUTROPHILS # 4.7 K/mm3 (1.8-7.7); NEUTROPHILS % 59.6 % (36.0-66.0); PLATELET COUNT, AUTOMATED 226 k/mm3 (150-450); RED CELL DISTRIBUTION WIDTH 13.6 % (11.5-14.5); WHITE BLOOD COUNT 7.9 K/mm3 (4.0-10.0)
[2016-12-02 16:12] LABS: ALBUMIN 4.4 GM/DL (3.2-5.2); ALBUMIN/GLOBULIN RATIO 1.33 (1.00-1.93); BILIRUBIN,TOTAL 0.5 MG/DL (0.2-1.0); CALCIUM LEVEL 9.4 MG/DL (8.8-10.2); CREATININE FOR GFR 1.01 MG/DL (0.55-1.02); FREE T4 1.27 NG/DL (0.76-1.46); GLOMERULAR FILTRATION RATE 58.2 (>45); POTASSIUM SERUM 3.9 MEQ/L (3.5-5.1); TOTAL PROTEIN 7.7 GM/DL (6.4-8.2)
[2016-12-02 16:31] LABS: ERYTHROCYTE SEDIMENTATION RATE 6 mm/hr (0-30)
== END ==
LOC: M SFHCPLAZ 13:56
PROVIDERS: ATTEND Nurse Practitioner Family
DX: R51 Headache (principal); E11.65 Type 2 diabetes mellitus with hyperglycemia; E03.9 Hypothyroidism, unspecified
CPT/HCPCS: 36415; 80053; 84439; 84443; 85025; 85652; G0463

== ENCOUNTER → 2016-12-10 | Outpatient (CLI) | payer MEDICARE, MEDICAID | LOC: M HL 13:52 | PROVIDERS: ATTEND Nurse Practitioner Family | DX: E11.65 Type 2 diabetes mellitus with hyperglycemia (principal) ==

== ENCOUNTER → 2017-01-22 | Outpatient (REF) | payer MEDICARE, MEDICAID ==
[2017-01-22 14:19] LABS: FOLATE > 24.0 NG/ML; VITAMIN B12 LEVEL 413 PG/ML
[2017-01-26 08:53] LABS: TOTAL PROTEIN 7.6 GM/DL (6.4-8.2)
[2017-01-26 11:56] LABS: ALBUMIN 4.53 GM/DL (3.29-5.55); ALBUMIN % 59.6 % (55.8-66.1); GAMMA GLOBULIN % 15.3 % (11.1-18.8)
[2017-01-27 00:08] LABS: VITAMIN E LEVEL 14.9 mg/L (6.5-21.5)
== END ==
LOC: M LABDRAWP 13:08
PROVIDERS: ATTEND Psychiatry & Neurology Neurology
DX: G31.9 Degenerative disease of nervous system, unspecified (principal); Z79.899 Other long term (current) drug therapy

== ENCOUNTER → 2017-02-18 | Outpatient (REF) | payer MEDICARE, MEDICAID ==
[2017-02-18 12:26] LABS: ALBUMIN 3.9 GM/DL (3.2-5.2); ALBUMIN/GLOBULIN RATIO 1.39 (1.00-1.93); BILIRUBIN,TOTAL 0.6 MG/DL (0.2-1.0); CALCIUM LEVEL 9.2 MG/DL (8.8-10.2); CREATININE FOR GFR 1.02 MG/DL (0.55-1.02); FREE T4 1.12 NG/DL (0.76-1.46); GLOMERULAR FILTRATION RATE 57.5 (>45); POTASSIUM SERUM 3.8 MEQ/L (3.5-5.1); TOTAL PROTEIN 6.7 GM/DL (6.4-8.2)
== END ==
LOC: M SFHCPLAZ 08:32
PROVIDERS: ATTEND Nurse Practitioner Family
DX: E11.9 Type 2 diabetes mellitus without complications (principal); E03.9 Hypothyroidism, unspecified; E78.2 Mixed hyperlipidemia

== ENCOUNTER → 2017-02-27 | Outpatient (CLI) | payer MEDICAID, MEDICARE ==
--- NOTE | 2017-02-27 12:22 | REPMRS ---
Patient History The patient states she had a clinical breast exam in 02/23 Family history of breast cancer in niece at age 50 or over. Benign stereotatic breast biopsy of the right breast, October 21, 2012. Digital Woman Screen Mammo: February 27, 2017 - Exam #: [id number] Bilateral CC and MLO view(s) were taken. Technologist: Beatriz Aguilera, Technologist Prior study comparison: January 17, 2016, digital woman screen mammo performed at [facility] to [facility]. January 08, 2015, digital mammo diagnostic bilateral, performed at [facility]. January 04, 2014, digital woman screen mammo performed at [facility]. FINDINGS: The breast tissue is almost entirely fat. There has been no change in the appearance of the mammogram from the prior studies. There is a needle biopsy marker clip in the right breast. There is no interval development of dominant mass, architectural distortion, or clustered microcalcification typical of malignancy. ASSESSMENT: BI-RADS/ACR category 1 mammogram. Negative. Recommendation Routine screening mammogram of both breasts in 1 year (for women over age 40). This mammogram was interpreted with the aid of an FDA-approved computer-aided dectection system. Electronically Signed By: Zion Thompson MD 02/27/17 [id number]
== END ==
LOC: M WHC 11:42
PROVIDERS: ATTEND Nurse Practitioner Family
DX: Z12.31 Encounter for screening mammogram for malignant neoplasm of breast (principal)

== ENCOUNTER → 2017-04-29 | Day surgery (SDC) | payer MEDICARE, MEDICAID ==
[~2017-04-29] VITALS: Ht 160 cm; Wt 83.0 kg
[~2017-04-29] MED LIST: ACETAMINOPHEN 325 MG TAB PO PRN; AMMO12CR TOP; ASPI1TAB PO; AcetaZOLAMIDE 500 MG ER CAP PO ONE; BSS with VANC/TOB/EPI for EYE CASES IR ONE; CALTCHW5 PO; CHLO125TA PO; CYCLOPENTOLATE 2% OPHTH SOLN 2ML BTL As Ordered ONE; CYCLOPENTOLATE 2% OPHTH SOLN 2ML BTL XX ONE; DRIS50002 PO; FLUTISP; FOSA70TA PO; HEALON DUET (HEALON 10MG/ML 0.55ML & HEALON ENDOCOAT 30MG/ML 0.85ML) As Ordered ONE; KETOROLAC 0.5% OPHTH SOLN OS ONE; LEVE1INJ5 SC; LEVO25TA34 PO; LIDOCAINE 1% SDV 5 ML VIAL As Ordered ONE; LIDOCAINE 4% INJ 5 ML AMP OU ONE; LORA10TA2 PO; LR 500 ML IV SCH; MECL-86 PO; METF1000 PO; METO25TAB PO; METOPROLOL TART 25 MG TABLET As Ordered ONE; METOPROLOL TART 25 MG TABLET PO ONE; MIDAZOLAM INJ 2 MG/2 ML VIAL (J2250) As Ordered ONE; MOXIFLOXACIN IN BSS 0.25MG/0.25ML INTRACAMERAL INJ (OR EYE ONLY)(J2280) As Ordered ONE; OFLOXACIN 0.3 % (OCUFLOX) OPTH SOL 5ML As Ordered ONE; OFLOXACIN 0.3 % (OCUFLOX) OPTH SOL 5ML XX ONE; OMEP40CA2 PO; PHENYLEPHRINE 2.5% OPHTH SOL 2ML As Ordered ONE; PHENYLEPHRINE 2.5% OPHTH SOL 2ML XX ONE; POTA10TA16 PO; POVIDONE-IODINE 5% OPHTH PREP SOL 30ML As Ordered ONE; PREG50CA PO; PROA1AER INH; PROPARACAINE 0.5% OPHTH SOL 15ML OS PRN; SIMV20TA2 PO; TIZA4CAP3 PO; TRIAMCINOLONE PRES FR 40 MG/ML 1ML(TRIESENCE)(OR EYE ONLY)(J3300 PER 1MG) As Ordered ONE; TRIMETHOBENZAMIDE 300 MG CAP PO PRN; TROPICAMIDE 1% OPHTH SOLN 2ML As Ordered ONE; TROPICAMIDE 1% OPHTH SOLN 2ML XX ONE; VICT18IN SC; ZOLO100T PO
[2017-04-29 08:20] VITALS: BP 158/86
[2017-04-29 10:00] VITALS: BP 138/74
== END | disposition home or self-care (01) ==
LOC: M SDC 06:31
PROVIDERS: ATTEND Ophthalmology
DX: H25.12 Age-related nuclear cataract, left eye (principal); I10 Essential (primary) hypertension; E11.9 Type 2 diabetes mellitus without complications; E03.9 Hypothyroidism, unspecified; K21.9 Gastro-esophageal reflux disease without esophagitis; B19.9 Unspecified viral hepatitis without hepatic coma; R29.898 Other symptoms and signs involving the musculoskeletal system; M54.5 Low back pain; F41.9 Anxiety disorder, unspecified; E78.2 Mixed hyperlipidemia; J30.9 Allergic rhinitis, unspecified; F32.9 Major depressive disorder, single episode, unspecified; J45.991 Cough variant asthma; R06.83 Snoring; R06.02 Shortness of breath; G47.33 Obstructive sleep apnea (adult) (pediatric); Z79.899 Other long term (current) drug therapy; Z79.82 Long term (current) use of aspirin; Z79.84 Long term (current) use of oral hypoglycemic drugs; Z79.3 Long term (current) use of hormonal contraceptives; Z87.891 Personal history of nicotine dependence; Z87.81 Personal history of (healed) traumatic fracture; Z88.8 Allergy status to other drugs, medicaments and biological substances; Z90.710 Acquired absence of both cervix and uterus; Z86.73 Personal history of transient ischemic attack (TIA), and cerebral infarction without residual deficits
CPT/HCPCS: 66984; J2250; J2280; J3300; V2632

== ENCOUNTER → 2017-05-06 | Day surgery (SDC) | payer MEDICARE, MEDICAID ==
[~2017-05-06] VITALS: Ht 160 cm; Wt 83.0 kg
[~2017-05-06] MED LIST changes: -CYCLOPENTOLATE 2% OPHTH SOLN 2ML BTL As Ordered ONE; +CYCLOPENTOLATE 2% OPHTH SOLN 2ML BTL OD ONE; -CYCLOPENTOLATE 2% OPHTH SOLN 2ML BTL XX ONE; +KETOROLAC 0.5% OPHTH SOLN OD ONE; -KETOROLAC 0.5% OPHTH SOLN OS ONE; +LR 1,000 ML IV ONE; -LR 500 ML IV SCH; -METF1000 PO; +METF10004 PO; +METO25TA4 PO; -METO25TAB PO; -METOPROLOL TART 25 MG TABLET As Ordered ONE; -METOPROLOL TART 25 MG TABLET PO ONE; -OFLOXACIN 0.3 % (OCUFLOX) OPTH SOL 5ML As Ordered ONE; +OFLOXACIN 0.3 % (OCUFLOX) OPTH SOL 5ML OD ONE; -OFLOXACIN 0.3 % (OCUFLOX) OPTH SOL 5ML XX ONE; -PHENYLEPHRINE 2.5% OPHTH SOL 2ML As Ordered ONE; +PHENYLEPHRINE 2.5% OPHTH SOL 2ML OD ONE; -PHENYLEPHRINE 2.5% OPHTH SOL 2ML XX ONE; -PROA1AER INH; +PROAAER10 INH; +PROPARACAINE 0.5% OPHTH SOL 15ML OD PRN; -PROPARACAINE 0.5% OPHTH SOL 15ML OS PRN; -TROPICAMIDE 1% OPHTH SOLN 2ML As Ordered ONE; +TROPICAMIDE 1% OPHTH SOLN 2ML OD ONE; -TROPICAMIDE 1% OPHTH SOLN 2ML XX ONE; +fentaNYL 100 MCG/2 ML INJECTION (J3010) As Ordered ONE
[2017-05-06 10:00] VITALS: BP 143/70
== END | disposition home or self-care (01) ==
LOC: M SDC 06:18
PROVIDERS: ATTEND Ophthalmology
DX: H25.13 Age-related nuclear cataract, bilateral (principal); I10 Essential (primary) hypertension; F41.9 Anxiety disorder, unspecified; F32.9 Major depressive disorder, single episode, unspecified; E11.9 Type 2 diabetes mellitus without complications; E78.2 Mixed hyperlipidemia; M85.80 Other specified disorders of bone density and structure, unspecified site; J30.9 Allergic rhinitis, unspecified; K21.9 Gastro-esophageal reflux disease without esophagitis; E55.9 Vitamin D deficiency, unspecified; E03.9 Hypothyroidism, unspecified; J45.991 Cough variant asthma; I69.923 Fluency disorder following unspecified cerebrovascular disease; H91.93 Unspecified hearing loss, bilateral; Z88.8 Allergy status to other drugs, medicaments and biological substances; Z79.899 Other long term (current) drug therapy; Z79.82 Long term (current) use of aspirin; Z79.84 Long term (current) use of oral hypoglycemic drugs; Z90.710 Acquired absence of both cervix and uterus; Z87.891 Personal history of nicotine dependence; Z85.41 Personal history of malignant neoplasm of cervix uteri
CPT/HCPCS: 66984; J2250; J2280; J3010; J3300; V2632

== ENCOUNTER → 2017-05-22 | Outpatient (REF) | payer MEDICARE, MEDICAID ==
[~2017-05-22] MED LIST changes: -ACETAMINOPHEN 325 MG TAB PO PRN; -AcetaZOLAMIDE 500 MG ER CAP PO ONE; -BSS with VANC/TOB/EPI for EYE CASES IR ONE; -CYCLOPENTOLATE 2% OPHTH SOLN 2ML BTL OD ONE; -HEALON DUET (HEALON 10MG/ML 0.55ML & HEALON ENDOCOAT 30MG/ML 0.85ML) As Ordered ONE; -KETOROLAC 0.5% OPHTH SOLN OD ONE; -LIDOCAINE 1% SDV 5 ML VIAL As Ordered ONE; -LIDOCAINE 4% INJ 5 ML AMP OU ONE; -LR 1,000 ML IV ONE; -MIDAZOLAM INJ 2 MG/2 ML VIAL (J2250) As Ordered ONE; -MOXIFLOXACIN IN BSS 0.25MG/0.25ML INTRACAMERAL INJ (OR EYE ONLY)(J2280) As Ordered ONE; -OFLOXACIN 0.3 % (OCUFLOX) OPTH SOL 5ML OD ONE; -PHENYLEPHRINE 2.5% OPHTH SOL 2ML OD ONE; -POVIDONE-IODINE 5% OPHTH PREP SOL 30ML As Ordered ONE; -PROPARACAINE 0.5% OPHTH SOL 15ML OD PRN; -TRIAMCINOLONE PRES FR 40 MG/ML 1ML(TRIESENCE)(OR EYE ONLY)(J3300 PER 1MG) As Ordered ONE; -TRIMETHOBENZAMIDE 300 MG CAP PO PRN; -TROPICAMIDE 1% OPHTH SOLN 2ML OD ONE; -fentaNYL 100 MCG/2 ML INJECTION (J3010) As Ordered ONE
[2017-05-22 12:21] LABS: ALBUMIN 4.2 GM/DL (3.2-5.2); ALBUMIN/GLOBULIN RATIO 1.4 (1.00-1.93); BILIRUBIN,TOTAL 0.6 MG/DL (0.2-1.0); CALCIUM LEVEL 9.3 MG/DL (8.8-10.2); CREATININE FOR GFR 1.08 MG/DL (0.55-1.02); GLOMERULAR FILTRATION RATE 53.9 (>45); TOTAL PROTEIN 7.2 GM/DL (6.4-8.2)
== END ==
LOC: M SFHCPLAZ 08:14
PROVIDERS: ATTEND Nurse Practitioner Family
DX: E11.9 Type 2 diabetes mellitus without complications (principal)

== ENCOUNTER → 2017-08-24 | Outpatient (REF) | payer MEDICARE, MEDICAID ==
[2017-08-24 13:23] LABS: ALBUMIN/GLOBULIN RATIO 1.21 (1.00-1.93); BILIRUBIN,TOTAL 0.5 MG/DL (0.2-1.0); CALCIUM LEVEL 8.8 MG/DL (8.8-10.2); CREATININE FOR GFR 1.07 MG/DL (0.55-1.02); FREE T4 0.96 NG/DL (0.76-1.46); GLOMERULAR FILTRATION RATE 54.5 (>45); POTASSIUM SERUM 4.1 MEQ/L (3.5-5.1); TOTAL PROTEIN 7.3 GM/DL (6.4-8.2)
== END ==
LOC: M SFHCPLAZ 10:44
PROVIDERS: ATTEND Nurse Practitioner Family
DX: E03.9 Hypothyroidism, unspecified (principal); E11.9 Type 2 diabetes mellitus without complications; E55.9 Vitamin D deficiency, unspecified

== ENCOUNTER → 2018-01-06 | Outpatient (REF) | payer MEDICARE, MEDICAID | LOC: M SFHCPLAZ 11:56 | DX: R35.0 Frequency of micturition (principal) | CPT/HCPCS: 87086 ==

== ENCOUNTER → 2018-02-26 | Outpatient (CLI) | payer MEDICARE, MEDICAID | LOC: M WHC 10:18 | DX: Z12.31 Encounter for screening mammogram for malignant neoplasm of breast (principal) | CPT/HCPCS: 77067 ==

== ENCOUNTER 2018-04-13 16:00 | Inpatient (IN) | payer MEDICARE, MEDICAID ==
[2018-04-13] MEDS: METOCLOPRAMIDE INJ 10MG/2ML VIAL (J2765) IV (17:30)
[2018-04-13] MEDS: NS 500 ML IV (17:30)
[2018-04-13] MEDS: MORPHINE 2 MG/ML 1ML SYRINGE (J2270) IV (17:43)
[2018-04-13 17:51] LABS: BASO # 0.1 10^3/uL (0.0-0.2); BASO % 0.5 % (0.0-1.0); EOS % 0.4 % (0.0-3.0); HEMATOCRIT 44.4 % (36.0-47.0); HEMOGLOBIN 14.9 g/dl (12.0-15.5); IMMATURE GRANULOCYTE % 0.4 % (0-3.0); LYMPH # 1.1 10^3/uL (1.5-4.5); LYMPH % 10.3 % (24.0-44.0); MEAN CORPUSCULAR HEMOGLOBIN 26.7 pg (27.0-33.0); MEAN CORPUSCULAR HGB CONC 33.6 g/dl (32.0-36.5); MEAN CORPUSCULAR VOLUME 79.4 fl (80.0-96.0); MONO # 0.9 10^3/uL (0.0-0.8); MONO % 8.2 % (0.0-5.0); NEUTROPHILS # 8.3 10^3/uL (1.8-7.7); NEUTROPHILS % 80.2 % (36.0-66.0); PLATELET COUNT, AUTOMATED 169 10^3/uL (150-450); RED BLOOD COUNT 5.59 10^6/uL (4.00-5.40); WHITE BLOOD COUNT 10.3 10^3/uL (4.0-10.0)
[2018-04-13 17:56] LABS: ALBUMIN 3.9 GM/DL (3.2-5.2); ALBUMIN/GLOBULIN RATIO 1.18 (1.00-1.93); ALKALINE PHOSPHATASE 58 U/L (45-117); ALT/SGPT 35 U/L (12-78); ANION GAP 10 MEQ/L (8-16); AST/SGOT 25 U/L (7-37); BILIRUBIN,DIRECT 0.3 MG/DL (0.0-0.2); BLOOD UREA NITROGEN 19 MG/DL (7-18); CALCIUM LEVEL 8.5 MG/DL (8.8-10.2); CARBON DIOXIDE LEVEL 28 MEQ/L (21-32); CHLORIDE LEVEL 102 MEQ/L (98-107); CREATININE FOR GFR 1.18 MG/DL (0.55-1.30); GLOMERULAR FILTRATION RATE 48.5 (>45); GLUCOSE, FASTING 234 MG/DL (70-100); LIPASE 234 U/L (73-393); POTASSIUM SERUM 3.4 MEQ/L (3.5-5.1); SODIUM LEVEL 140 MEQ/L (136-145); TOTAL PROTEIN 7.2 GM/DL (6.4-8.2)
[2018-04-13 17:57] LABS: LACTIC ACID SEPSIS PROTOCOL 1.9 MMOL/L (0.4-2.0)
[2018-04-13] MEDS: GASTROGRAFIN SOLUTION 30ML PO ×2 (18:07→18:30)
[2018-04-13] MEDS ORDERED: ISOVUE-370 76% 100ML VIAL (Q9967) As Ordered (19:59)
[2018-04-13 20:45] LABS: APPEARANCE, URINE HAZY (CLEAR); BACTERIA, URINE AUTO 1+ (NEGATIVE); BILIRUBIN, URINE AUTO NEGATIVE (NEGATIVE); BLOOD, URINE BLOOD NEGATIVE (NEGATIVE); COLOR, URINE YELLOW (YELLOW); GLUCOSE, URINE (UA) AUTO 2+ mg/dL (NEGATIVE); KETONE, URINE AUTO NEGATIVE (NEGATIVE); LEUKOCYTE ESTERASE, URINE AUTO TRACE (NEGATIVE); MUCUS, URINE SMALL (NEGATIVE); NITRITE, URINE AUTO NEGATIVE (NEGATIVE); PROTEIN, URINE AUTO NEGATIVE (NEGATIVE); RBC, URINE AUTO 3 /HPF (0-3); SPECIFIC GRAVITY URINE AUTO 1.055 (1.002-1.035); SQUAMOUS EPITHELIAL CELL UR AU 2 /HPF (0-6); WBC, URINE AUTO 9 /HPF (0-3)
[2018-04-13] MEDS: NS 1,000 ML IV (22:20)
[2018-04-13] MEDS ORDERED: GLUCAGON FOR INJ 1 MG VIAL (J1610) SC (22:30)
[2018-04-13] MEDS ORDERED: DEXTROSE 50% 50 ML SYRINGE IV (22:30)
[2018-04-13] MEDS ORDERED: ONDANSETRON 4MG/2ML VIAL (J2405) IV (22:30)
[2018-04-13] MEDS ORDERED: GLUCOSE 4 GM CHEW TABLET PO (22:30)
[2018-04-13 22:41] LABS: BEDSIDE GLUCOSE 199 MG/DL (80-115)
[2018-04-13] MEDS: CIPROFLOXACIN 400 MG in APPROPRIATE DILUENT 1 EA IV (22:44)
[2018-04-13] MEDS: LEVEMIR (INSULIN DETEMIR) 1 UNITS/0.01ML SC (22:44)
[2018-04-14] MEDS: SIMVASTATIN 20 MG TAB PO ×2 (00:53→21:04)
[2018-04-14] MEDS: MECLIZINE 25 MG TABLET PO ×3 (00:53→21:04)
[2018-04-14] MEDS: LORATADINE 10 MG TAB PO ×2 (00:53→17:04)
[2018-04-14] MEDS: METOPROLOL TART 25 MG TABLET PO ×3 (00:54→21:04)
[2018-04-14] MEDS: NS 1,000 ML IV ×2 (00:54→14:00)
[2018-04-14] MEDS: POTASSIUM CHLORIDE 10 MEQ SR TABLET PO ×2 (00:54→17:04)
[2018-04-14] MEDS: OMEPRAZOLE 20 MG CAP PO ×3 (00:54→21:04)
[2018-04-14] MEDS: HumaLOG INSULIN (NovoLOG) PER UNIT SC ×6 (00:55→21:00)
[2018-04-14] MEDS: metroNIDAZOLE 500 MG in APPROPRIATE DILUENT 1 EA IV ×3 (00:55→17:04)
[2018-04-14 00:57] LABS: BEDSIDE GLUCOSE 228 MG/DL (80-115)
[2018-04-14] MEDS: MORPHINE 4 MG/ML 1ML VIAL/SYRINGE (J2270) IV ×3 (00:59→06:43)
[2018-04-14 05:57] LABS: BASO # 0.1 10^3/uL (0.0-0.2); BASO % 0.6 % (0.0-1.0); EOS # 0.1 10^3/uL (0.0-0.50); EOS % 1.4 % (0.0-3.0); HEMATOCRIT 41.5 % (36.0-47.0); HEMOGLOBIN 13.5 g/dl (12.0-15.5); IMMATURE GRANULOCYTE % 0.3 % (0-3.0); LYMPH # 2.3 10^3/uL (1.5-4.5); LYMPH % 22.1 % (24.0-44.0); MEAN CORPUSCULAR HEMOGLOBIN 26.4 pg (27.0-33.0); MEAN CORPUSCULAR HGB CONC 32.5 g/dl (32.0-36.5); MEAN CORPUSCULAR VOLUME 81.2 fl (80.0-96.0); MONO # 1.3 10^3/uL (0.0-0.8); MONO % 12.4 % (0.0-5.0); NEUTROPHILS # 6.5 10^3/uL (1.8-7.7); NEUTROPHILS % 63.2 % (36.0-66.0); PLATELET COUNT, AUTOMATED 169 10^3/uL (150-450); RED BLOOD COUNT 5.11 10^6/uL (4.00-5.40); RED CELL DISTRIBUTION WIDTH 14.4 % (11.5-14.5); WHITE BLOOD COUNT 10.3 10^3/uL (4.0-10.0)
[2018-04-14 06:19] LABS: ALBUMIN 3.3 GM/DL (3.2-5.2); ALBUMIN/GLOBULIN RATIO 0.97 (1.00-1.93); ALKALINE PHOSPHATASE 44 U/L (45-117); ALT/SGPT 36 U/L (12-78); ANION GAP 8 MEQ/L (8-16); AST/SGOT 60 U/L (7-37); BILIRUBIN,TOTAL 0.9 MG/DL (0.2-1.0); BLOOD UREA NITROGEN 17 MG/DL (7-18); CALCIUM LEVEL 7.9 MG/DL (8.8-10.2); CARBON DIOXIDE LEVEL 28 MEQ/L (21-32); CHLORIDE LEVEL 104 MEQ/L (98-107); CREATININE FOR GFR 1.13 MG/DL (0.55-1.30); GLUCOSE, FASTING 198 MG/DL (70-100); POTASSIUM SERUM 3.4 MEQ/L (3.5-5.1); SODIUM LEVEL 140 MEQ/L (136-145); TOTAL PROTEIN 6.7 GM/DL (6.4-8.2)
[2018-04-14] MEDS: ASPIRIN 81 MG ENTERIC TAB PO (07:38)
[2018-04-14] MEDS: SERTRALINE 100 MG TAB PO (07:38)
[2018-04-14] MEDS ORDERED: CHLORTHALIDONE 12.5MG PER 1/2 TABLET PO (09:00)
[2018-04-14] MEDS: ENOXAPARIN 40 MG/0.4 ML SYRINGE (J1650) SC (09:02)
[2018-04-14] MEDS: LEVOTHYROXINE 25MCG TABLET (0.025MG) PO (09:02)
[2018-04-14] MEDS: CIPROFLOXACIN 400 MG in APPROPRIATE DILUENT 1 EA IV ×2 (10:12→23:15)
[2018-04-14] MEDS: CHLORTHALIDONE 25 MG TAB PO (10:12)
[2018-04-14 11:50] LABS: BEDSIDE GLUCOSE 229 MG/DL (80-115)
[2018-04-14] MEDS: oxyCODONE 5MG TAB PO (12:47)
[2018-04-14] MEDS: ACETAMINOPHEN TAB 650MG DOSE (2X325MG) PO (14:37)
[2018-04-14 17:19] LABS: BEDSIDE GLUCOSE 194 MG/DL (80-115)
[2018-04-14 21:00] LABS: BEDSIDE GLUCOSE 195 MG/DL (80-115)
[2018-04-15] MEDS: NS 1,000 ML IV (00:27)
[2018-04-15] MEDS: metroNIDAZOLE 500 MG in APPROPRIATE DILUENT 1 EA IV ×4 (00:27→23:22)
[2018-04-15] MEDS: LEVOTHYROXINE 25MCG TABLET (0.025MG) PO (05:33)
[2018-04-15 06:15] LABS: BASO # 0.1 10^3/uL (0.0-0.2); BASO % 0.8 % (0.0-1.0); EOS # 0.2 10^3/uL (0.0-0.50); EOS % 2.8 % (0.0-3.0); HEMATOCRIT 37.9 % (36.0-47.0); HEMOGLOBIN 12.5 g/dl (12.0-15.5); IMMATURE GRANULOCYTE % 0.5 % (0-3.0); LYMPH # 1.6 10^3/uL (1.5-4.5); LYMPH % 25.8 % (24.0-44.0); MEAN CORPUSCULAR VOLUME 81.9 fl (80.0-96.0); MONO # 0.7 10^3/uL (0.0-0.8); MONO % 11.3 % (0.0-5.0); NEUTROPHILS # 3.5 10^3/uL (1.8-7.7); NEUTROPHILS % 58.8 % (36.0-66.0); PLATELET COUNT, AUTOMATED 138 10^3/uL (150-450); RED BLOOD COUNT 4.63 10^6/uL (4.00-5.40); RED CELL DISTRIBUTION WIDTH 14.3 % (11.5-14.5)
[2018-04-15 06:33] LABS: ALBUMIN 3.1 GM/DL (3.2-5.2); ALBUMIN/GLOBULIN RATIO 1.15 (1.00-1.93); ALKALINE PHOSPHATASE 40 U/L (45-117); ALT/SGPT 33 U/L (12-78); ANION GAP 4 MEQ/L (8-16); AST/SGOT 47 U/L (7-37); BILIRUBIN,TOTAL 0.5 MG/DL (0.2-1.0); BLOOD UREA NITROGEN 11 MG/DL (7-18); CALCIUM LEVEL 7.5 MG/DL (8.8-10.2); CARBON DIOXIDE LEVEL 30 MEQ/L (21-32); CHLORIDE LEVEL 108 MEQ/L (98-107); CREATININE FOR GFR 1.14 MG/DL (0.55-1.30); GLOMERULAR FILTRATION RATE 50.5 (>45); GLUCOSE, FASTING 170 MG/DL (70-100); POTASSIUM SERUM 3.2 MEQ/L (3.5-5.1); SODIUM LEVEL 142 MEQ/L (136-145); TOTAL PROTEIN 5.8 GM/DL (6.4-8.2)
[2018-04-15] MEDS: HumaLOG INSULIN (NovoLOG) PER UNIT SC ×4 (08:56→21:00)
[2018-04-15] MEDS: SERTRALINE 100 MG TAB PO (08:57)
[2018-04-15] MEDS: OMEPRAZOLE 20 MG CAP PO ×2 (08:57→21:55)
[2018-04-15] MEDS: ASPIRIN 81 MG ENTERIC TAB PO (08:57)
[2018-04-15] MEDS: MECLIZINE 25 MG TABLET PO ×2 (08:57→21:56)
[2018-04-15] MEDS: CHLORTHALIDONE 12.5MG PER 1/2 TABLET PO (08:57)
[2018-04-15] MEDS: ACETAMINOPHEN TAB 650MG DOSE (2X325MG) PO (08:57)
[2018-04-15] MEDS: ENOXAPARIN 40 MG/0.4 ML SYRINGE (J1650) SC (08:58)
[2018-04-15] MEDS: METOPROLOL TART 25 MG TABLET PO ×2 (08:58→21:56)
[2018-04-15] MEDS: CIPROFLOXACIN 400 MG in APPROPRIATE DILUENT 1 EA IV ×2 (11:30→22:02)
[2018-04-15] MEDS: POTASSIUM CHLORIDE 10 MEQ SR TABLET PO ×2 (11:31→18:14)
[2018-04-15 12:33] LABS: BEDSIDE GLUCOSE 196 MG/DL (80-115)
[2018-04-15 17:51] LABS: BEDSIDE GLUCOSE 147 MG/DL (80-115)
[2018-04-15] MEDS: LORATADINE 10 MG TAB PO (18:14)
[2018-04-15 20:54] LABS: BEDSIDE GLUCOSE 190 MG/DL (80-115)
[2018-04-15] MEDS: SIMVASTATIN 20 MG TAB PO (21:56)
[2018-04-16] MEDS: ACETAMINOPHEN TAB 650MG DOSE (2X325MG) PO (01:11)
[2018-04-16] MEDS: LEVOTHYROXINE 25MCG TABLET (0.025MG) PO (05:52)
[2018-04-16 06:23] LABS: HEMATOCRIT 36.3 % (36.0-47.0); HEMOGLOBIN 12.2 g/dl (12.0-15.5); MEAN CORPUSCULAR HGB CONC 33.6 g/dl (32.0-36.5); MEAN CORPUSCULAR VOLUME 80.3 fl (80.0-96.0); PLATELET COUNT, AUTOMATED 134 10^3/uL (150-450); RED BLOOD COUNT 4.52 10^6/uL (4.00-5.40); RED CELL DISTRIBUTION WIDTH 14.2 % (11.5-14.5); WHITE BLOOD COUNT 4.7 10^3/uL (4.0-10.0)
[2018-04-16 06:43] LABS: ANION GAP 6 MEQ/L (8-16); BLOOD UREA NITROGEN 5 MG/DL (7-18); CALCIUM LEVEL 7.9 MG/DL (8.8-10.2); CARBON DIOXIDE LEVEL 27 MEQ/L (21-32); CHLORIDE LEVEL 111 MEQ/L (98-107); CREATININE FOR GFR 1.06 MG/DL (0.55-1.30); GLOMERULAR FILTRATION RATE 54.9 (>45); GLUCOSE, FASTING 174 MG/DL (70-100); POTASSIUM SERUM 3.2 MEQ/L (3.5-5.1); SODIUM LEVEL 144 MEQ/L (136-145)
[2018-04-16 06:59] LABS: BEDSIDE GLUCOSE 177 MG/DL (80-115)
[2018-04-16] MEDS: metroNIDAZOLE 500 MG in APPROPRIATE DILUENT 1 EA IV ×2 (08:00→16:53)
[2018-04-16] MEDS: MECLIZINE 25 MG TABLET PO ×2 (08:01→20:09)
[2018-04-16] MEDS: SERTRALINE 100 MG TAB PO (08:01)
[2018-04-16] MEDS: CHLORTHALIDONE 12.5MG PER 1/2 TABLET PO (08:01)
[2018-04-16] MEDS: OMEPRAZOLE 20 MG CAP PO ×2 (08:01→20:09)
[2018-04-16] MEDS: ENOXAPARIN 40 MG/0.4 ML SYRINGE (J1650) SC (08:02)
[2018-04-16] MEDS: HumaLOG INSULIN (NovoLOG) PER UNIT SC ×4 (08:02→20:01)
[2018-04-16] MEDS: METOPROLOL TART 25 MG TABLET PO ×2 (08:02→20:10)
[2018-04-16] MEDS: ASPIRIN 81 MG ENTERIC TAB PO (08:02)
[2018-04-16] MEDS: oxyCODONE 5MG TAB PO (08:37)
[2018-04-16] MEDS: CIPROFLOXACIN 400 MG in APPROPRIATE DILUENT 1 EA IV ×2 (11:28→23:02)
[2018-04-16 11:50] LABS: BEDSIDE GLUCOSE 186 MG/DL (80-115)
[2018-04-16] MEDS: POTASSIUM CHLORIDE 10 MEQ SR TABLET PO ×2 (14:35→17:23)
[2018-04-16 17:00] LABS: BEDSIDE GLUCOSE 233 MG/DL (80-115)
[2018-04-16] MEDS: LORATADINE 10 MG TAB PO (17:22)
[2018-04-16 19:56] LABS: BEDSIDE GLUCOSE 215 MG/DL (80-115)
[2018-04-16] MEDS: SIMVASTATIN 20 MG TAB PO (20:09)
[2018-04-17] MEDS: metroNIDAZOLE 500 MG in APPROPRIATE DILUENT 1 EA IV ×2 (00:14→07:38)
[2018-04-17] MEDS: LEVOTHYROXINE 25MCG TABLET (0.025MG) PO (05:36)
[2018-04-17 06:32] LABS: HEMATOCRIT 38.5 % (36.0-47.0); HEMOGLOBIN 12.8 g/dl (12.0-15.5); MEAN CORPUSCULAR HEMOGLOBIN 26.8 pg (27.0-33.0); MEAN CORPUSCULAR HGB CONC 33.2 g/dl (32.0-36.5); MEAN CORPUSCULAR VOLUME 80.5 fl (80.0-96.0); PLATELET COUNT, AUTOMATED 142 10^3/uL (150-450); RED BLOOD COUNT 4.78 10^6/uL (4.00-5.40); RED CELL DISTRIBUTION WIDTH 14.4 % (11.5-14.5); WHITE BLOOD COUNT 4.9 10^3/uL (4.0-10.0)
[2018-04-17 06:44] LABS: ANION GAP 6 MEQ/L (8-16); BLOOD UREA NITROGEN 6 MG/DL (7-18); CALCIUM LEVEL 8.4 MG/DL (8.8-10.2); CARBON DIOXIDE LEVEL 27 MEQ/L (21-32); CHLORIDE LEVEL 110 MEQ/L (98-107); CREATININE FOR GFR 1.14 MG/DL (0.55-1.30); GLOMERULAR FILTRATION RATE 50.5 (>45); GLUCOSE, FASTING 202 MG/DL (70-100); POTASSIUM SERUM 3.4 MEQ/L (3.5-5.1); SODIUM LEVEL 143 MEQ/L (136-145)
[2018-04-17] MEDS: HumaLOG INSULIN (NovoLOG) PER UNIT SC ×4 (07:38→20:37)
[2018-04-17] MEDS: SERTRALINE 100 MG TAB PO (07:39)
[2018-04-17] MEDS: CHLORTHALIDONE 12.5MG PER 1/2 TABLET PO (07:39)
[2018-04-17] MEDS: ASPIRIN 81 MG ENTERIC TAB PO (07:39)
[2018-04-17] MEDS: OMEPRAZOLE 20 MG CAP PO ×2 (07:40→20:36)
[2018-04-17] MEDS: MECLIZINE 25 MG TABLET PO ×2 (07:40→20:36)
[2018-04-17] MEDS: METOPROLOL TART 25 MG TABLET PO ×2 (07:40→20:38)
[2018-04-17] MEDS: ENOXAPARIN 40 MG/0.4 ML SYRINGE (J1650) SC (07:41)
[2018-04-17] MEDS: CIPROFLOXACIN 400 MG in APPROPRIATE DILUENT 1 EA IV (11:18)
[2018-04-17 11:55] LABS: BEDSIDE GLUCOSE 261 MG/DL (80-115)
[2018-04-17] MEDS: metroNIDAZOLE (FLAGYL) 500 MG TAB PO (15:01)
[2018-04-17 16:27] LABS: BEDSIDE GLUCOSE 212 MG/DL (80-115)
[2018-04-17] MEDS: CIPROFLOXACIN 500 MG TAB PO (17:06)
[2018-04-17] MEDS: LORATADINE 10 MG TAB PO (17:06)
[2018-04-17] MEDS: POTASSIUM CHLORIDE 10 MEQ SR TABLET PO (17:07)
[2018-04-17 20:22] LABS: BEDSIDE GLUCOSE 260 MG/DL (80-115)
[2018-04-17] MEDS: SIMVASTATIN 20 MG TAB PO (20:37)
[2018-04-17] MEDS: metFORMIN (GLUCOPHAGE) 1000 MG TABLET PO (22:30)
[2018-04-17] MEDS: LOPERAMIDE 2 MG CAP PO (22:30)
[2018-04-18 05:56] LABS: HEMATOCRIT 38.4 % (36.0-47.0); HEMOGLOBIN 12.8 g/dl (12.0-15.5); MEAN CORPUSCULAR HEMOGLOBIN 26.7 pg (27.0-33.0); MEAN CORPUSCULAR HGB CONC 33.3 g/dl (32.0-36.5); PLATELET COUNT, AUTOMATED 143 10^3/uL (150-450); RED CELL DISTRIBUTION WIDTH 14.6 % (11.5-14.5); WHITE BLOOD COUNT 5.8 10^3/uL (4.0-10.0)
[2018-04-18 06:12] LABS: ANION GAP 6 MEQ/L (8-16); BLOOD UREA NITROGEN 11 MG/DL (7-18); CALCIUM LEVEL 8.1 MG/DL (8.8-10.2); CARBON DIOXIDE LEVEL 24 MEQ/L (21-32); CHLORIDE LEVEL 113 MEQ/L (98-107); CREATININE FOR GFR 1.19 MG/DL (0.55-1.30); GLUCOSE, FASTING 200 MG/DL (70-100); POTASSIUM SERUM 3.5 MEQ/L (3.5-5.1); SODIUM LEVEL 143 MEQ/L (136-145)
[2018-04-18] MEDS: LEVOTHYROXINE 25MCG TABLET (0.025MG) PO (06:27)
[2018-04-18] MEDS: HumaLOG INSULIN (NovoLOG) PER UNIT SC ×2 (07:03→12:16)
[2018-04-18] MEDS: CHLORTHALIDONE 12.5MG PER 1/2 TABLET PO (07:58)
[2018-04-18] MEDS: SERTRALINE 100 MG TAB PO (07:58)
[2018-04-18] MEDS: VITAMIN D 50,000 UNITS CAPSULE (ERGOCALCIFEROL 1.25MG) PO (07:58)
[2018-04-18] MEDS: OMEPRAZOLE 20 MG CAP PO (07:58)
[2018-04-18] MEDS: MECLIZINE 25 MG TABLET PO (07:59)
[2018-04-18] MEDS: METOPROLOL TART 25 MG TABLET PO (07:59)
[2018-04-18] MEDS: ASPIRIN 81 MG ENTERIC TAB PO (07:59)
[2018-04-18] MEDS: ENOXAPARIN 40 MG/0.4 ML SYRINGE (J1650) SC (08:00)
[2018-04-18] MEDS: LOPERAMIDE 2 MG CAP PO (08:01)
[2018-04-18 11:19] LABS: BEDSIDE GLUCOSE 177 MG/DL (80-115)
== END 2018-04-18 15:01 | disposition home or self-care (01) | DRG 392 ==
LOC: M ED INP 04-14 00:43 → M MSPAV 04-14 00:43 → M ED INP 04-14 14:50 → M MSPAV 04-14 14:50 → M ED 16:00 → M ED INP 22:20
DX: K52.9 Noninfective gastroenteritis and colitis, unspecified (principal); E11.9 Type 2 diabetes mellitus without complications; J45.909 Unspecified asthma, uncomplicated; I10 Essential (primary) hypertension; F32.9 Major depressive disorder, single episode, unspecified; E66.9 Obesity, unspecified; E03.9 Hypothyroidism, unspecified; K21.9 Gastro-esophageal reflux disease without esophagitis; Z79.4 Long term (current) use of insulin; Z79.82 Long term (current) use of aspirin; Z79.899 Other long term (current) drug therapy; Z88.8 Allergy status to other drugs, medicaments and biological substances

== ENCOUNTER → 2018-05-18 | Outpatient (REF) | payer MEDICARE, MEDICAID ==
[2018-05-18 16:26] LABS: ALBUMIN 3.7 GM/DL (3.2-5.2); ALBUMIN/GLOBULIN RATIO 1.19 (1.00-1.93); ALKALINE PHOSPHATASE 72 U/L (45-117); ALT/SGPT 34 U/L (12-78); ANION GAP 6 MEQ/L (8-16); AST/SGOT 25 U/L (7-37); BILIRUBIN,TOTAL 0.5 MG/DL (0.2-1.0); BLOOD UREA NITROGEN 18 MG/DL (7-18); CALCIUM LEVEL 8.8 MG/DL (8.8-10.2); CARBON DIOXIDE LEVEL 31 MEQ/L (21-32); CHLORIDE LEVEL 105 MEQ/L (98-107); CREATININE FOR GFR 1.13 MG/DL (0.55-1.30); GLUCOSE, FASTING 178 MG/DL (70-100); POTASSIUM SERUM 3.6 MEQ/L (3.5-5.1); SODIUM LEVEL 142 MEQ/L (136-145); TOTAL PROTEIN 6.8 GM/DL (6.4-8.2)
[2018-05-18 17:51] LABS: ESTIMATED AVERAGE GLUCOSE 223 MG/DL (60-110); HEMOGLOBIN A1c 9.4 %
[2018-05-18 18:11] LABS: MALB URINE SIEMENS 11.4 MG/L; MAU/CREAT RATIO 6.7 MCG/MG (0.0-30.0)
== END ==
LOC: M SFHCPLAZ 09:15
DX: E11.65 Type 2 diabetes mellitus with hyperglycemia (principal)
CPT/HCPCS: 80053

== ENCOUNTER → 2018-08-04 | Outpatient (CLI) | payer MEDICARE, MEDICAID ==
[2018-08-04 16:35] LABS: BASO # 0.1 10^3/uL (0.0-0.2); BASO % 0.8 % (0.0-1.0); EOS # 0.1 10^3/uL (0.0-0.50); EOS % 1.9 % (0.0-3.0); HEMATOCRIT 40.6 % (36.0-47.0); HEMOGLOBIN 13.6 g/dl (12.0-15.5); IMMATURE GRANULOCYTE % 0.2 % (0-3.0); LYMPH # 1.7 10^3/uL (1.5-4.5); LYMPH % 28.5 % (24.0-44.0); MEAN CORPUSCULAR HEMOGLOBIN 26.2 pg (27.0-33.0); MEAN CORPUSCULAR HGB CONC 33.5 g/dl (32.0-36.5); MEAN CORPUSCULAR VOLUME 78.2 fl (80.0-96.0); MONO # 0.6 10^3/uL (0.0-0.8); MONO % 10.6 % (0.0-5.0); NEUTROPHILS # 3.5 10^3/uL (1.8-7.7); PLATELET COUNT, AUTOMATED 169 10^3/uL (150-450); RED BLOOD COUNT 5.19 10^6/uL (4.00-5.40); RED CELL DISTRIBUTION WIDTH 14.4 % (11.5-14.5); WHITE BLOOD COUNT 5.9 10^3/uL (4.0-10.0)
[2018-08-04 16:52] LABS: C REACTIVE PROTEIN QUANTITATIV < 0.30 MG/DL (0.00-0.30)
[2018-08-04 17:07] LABS: ERYTHROCYTE SEDIMENTATION RATE 5 mm/hr (0-30)
[2018-08-07 00:07] LABS: ANTINUCLEAR ANTIBODIES DIRECT Negative (Negative); T PALLIDUM AB (FTA-AB) Non Reactive (Non Reactive)
== END ==
LOC: M LAB 15:41
DX: H47.019 Ischemic optic neuropathy, unspecified eye (principal)
CPT/HCPCS: 86140

== ENCOUNTER → 2018-09-03 | Outpatient (REF) | payer MEDICARE, MEDICAID ==
[2018-09-03 12:28] LABS: ESTIMATED AVERAGE GLUCOSE 197 MG/DL (60-110); HEMOGLOBIN A1c 8.5 %
[2018-09-03 16:23] LABS: ALBUMIN 3.7 GM/DL (3.2-5.2); ALBUMIN/GLOBULIN RATIO 1.09 (1.00-1.93); ALKALINE PHOSPHATASE 68 U/L (45-117); ALT/SGPT 36 U/L (12-78); ANION GAP 12 MEQ/L (8-16); AST/SGOT 19 U/L (7-37); BILIRUBIN,TOTAL 0.6 MG/DL (0.2-1.0); BLOOD UREA NITROGEN 22 MG/DL (7-18); CALCIUM LEVEL 9.1 MG/DL (8.8-10.2); CARBON DIOXIDE LEVEL 23 MEQ/L (21-32); CHLORIDE LEVEL 104 MEQ/L (98-107); CREATININE FOR GFR 1.16 MG/DL (0.55-1.30); FREE T4 0.93 NG/DL (0.76-1.46); GLOMERULAR FILTRATION RATE 49.5 (>45); GLUCOSE, FASTING 267 MG/DL (70-100); POTASSIUM SERUM 4.4 MEQ/L (3.5-5.1); SODIUM LEVEL 139 MEQ/L (136-145); TOTAL 25(OH) VITAMIN D 39.2 NG/ML (30.0-100.0); TOTAL PROTEIN 7.1 GM/DL (6.4-8.2)
== END ==
LOC: M SFHCPLAZ 09:36
DX: E11.65 Type 2 diabetes mellitus with hyperglycemia (principal); E03.9 Hypothyroidism, unspecified; E55.9 Vitamin D deficiency, unspecified; Z79.899 Other long term (current) drug therapy
CPT/HCPCS: 84443

== ENCOUNTER → 2018-12-07 | Outpatient (CLI) | payer MEDICARE, MEDICAID ==
[~2018-12-07] MED LIST changes: +AMMO12CR4 TOP; +ASPI81TAEC PO; +CHLO25TA PO; -DRIS50002 PO; +DRIS50003 PO; +ERYT5OPO OU; +FLON27.5; +LORA-243 PO; -LORA10TA2 PO; +PATIENT COMMENT; +TIZA4CAP PO; -TIZA4CAP3 PO
--- NOTE | 2018-12-07 12:08 | REP ---
CAROTID ULTRASOUND: Real-time ultrasound evaluation and duplex Doppler interrogation of the extracranial carotid vasculature is performed. There is mild plaquing and narrowing in both carotid bulbs extending into the internal and external carotid arteries. Luminal narrowing is less than 50%. There is no evidence of hemodynamically significant stenosis of either internal carotid artery. Normal flow velocities are seen. The vertebral arteries demonstrate normal direction of flow. RIGHT LEFT Peak systolic velocity ICA 54.6 cm/s 59.0 cm/s End diastolic velocity ICA 13.2 cm/s 16.1 cm/s Peak systolic velocity CCA 50.6 cm/s 70.7 cm/s Peak systolic velocity ECA 101.1 cm/s 84.1 cm/s ICA/CCA ratio 1.08 0.83 IMPRESSION: Bilateral luminal narrowing of the internal carotid arteries less than 50%. No evidence of hemodynamically significant stenosis. Electronically Signed by Cruz Pineda MD 12/07/2018 11:59 A
== END ==
LOC: M RAD 11:15
PROVIDERS: ATTEND Ophthalmology
DX: H47.011 Ischemic optic neuropathy, right eye (principal); I65.23 Occlusion and stenosis of bilateral carotid arteries

== ENCOUNTER → 2018-12-14 | Outpatient (REF) | payer MEDICARE, MEDICAID ==
[2018-12-14 11:21] LABS: ALBUMIN 3.8 GM/DL (3.2-5.2); BILIRUBIN,TOTAL 0.5 MG/DL (0.2-1.0); CHOLESTEROL RISK RATIO 5.375 (<5); CREATININE FOR GFR 1.18 MG/DL (0.55-1.30); GLOMERULAR FILTRATION RATE 48.3 (>45); POTASSIUM SERUM 3.5 MEQ/L (3.5-5.1)
[2018-12-14 11:39] LABS: HEMOGLOBIN A1c 9.7 %
[2018-12-14 15:24] LABS: MAU/CREAT RATIO 7.3 MCG/MG (0.0-30.0)
== END ==
LOC: M SFHCPLAZ 08:48
PROVIDERS: ATTEND Nurse Practitioner Family
DX: E11.65 Type 2 diabetes mellitus with hyperglycemia (principal); E78.2 Mixed hyperlipidemia; E11.9 Type 2 diabetes mellitus without complications

== ENCOUNTER 2019-02-14 12:25 | Emergency (ER) | payer MEDICARE, MEDICAID ==
[~2019-02-14] VITALS: Ht 157.5 cm; Wt 85.9 kg
[~2019-02-14 12:25] MED LIST changes: -AMMO12CR4 TOP; +AMMO12CR7 TOP; -ASPI1TAB PO; +ASPI81TA26 PO; +ERYT1OIN26 OU; -ERYT5OPO OU
[2019-02-14] MEDS ORDERED: ASPIRIN 81 MG CHEW TABLET PO ONE (13:00)
[2019-02-14] MEDS ORDERED: PANTOPRAZOLE 40MG INJ (PROTONIX) (C9113) IV ONE (13:00)
[2019-02-14 13:27] LABS: BASO % 0.8 % (0.0-1.0); EOS # 0.1 10^3/uL (0.0-0.50); EOS % 2.8 % (0.0-3.0); HEMATOCRIT 41.3 % (36.0-47.0); HEMOGLOBIN 13.9 g/dl (12.0-15.5); LYMPH # 1.5 10^3/uL (1.5-4.5); LYMPH % 30.1 % (24.0-44.0); MEAN CORPUSCULAR HEMOGLOBIN 27.4 pg (27.0-33.0); MEAN CORPUSCULAR HGB CONC 33.7 g/dl (32.0-36.5); MEAN CORPUSCULAR VOLUME 81.5 fl (80.0-96.0); MONO # 0.6 10^3/uL (0.0-0.8); MONO % 11.6 % (0.0-5.0); NEUTROPHILS # 2.7 10^3/uL (1.8-7.7); NEUTROPHILS % 54.3 % (36.0-66.0); PLATELET COUNT, AUTOMATED 161 10^3/uL (150-450); RED BLOOD COUNT 5.07 10^6/uL (4.00-5.40)
[2019-02-14 14:05] LABS: ALBUMIN 3.9 GM/DL (3.2-5.2); ALT/SGPT 38 U/L (12-78); BILIRUBIN,DIRECT 0.1 MG/DL (0.0-0.2); BILIRUBIN,TOTAL 0.5 MG/DL (0.2-1.0); BLOOD UREA NITROGEN 19 MG/DL (7-18); CALCIUM LEVEL 9.3 MG/DL (8.8-10.2); CARBON DIOXIDE LEVEL 28 MEQ/L (21-32); CHLORIDE LEVEL 107 MEQ/L (98-107); CK-MB VALUE MASS < 1.0 NG/ML (<3.6); CPK CREATINE PHOSPHOKINASE 93 U/L (26-192); CREATININE FOR GFR 1.25 MG/DL (0.55-1.30); GLOMERULAR FILTRATION RATE 45.2 (>45); GLUCOSE, FASTING 139 MG/DL (70-100); LIPASE 256 U/L (73-393); MB/CK RELATIVE INDEX 1.08 (< OR =4); POTASSIUM SERUM 4.2 MEQ/L (3.5-5.1); SODIUM LEVEL 140 MEQ/L (136-145); TOTAL PROTEIN 6.9 GM/DL (6.4-8.2); TROPONIN I < 0.02 NG/ML (< 0.10)
[2019-02-14] MEDS ORDERED: CARA1TAB6 PO (14:35)
[2019-02-14] MEDS ORDERED: NAPR-837 PO (14:35)
[2019-02-14 14:45] VITALS: BP 132/64
--- NOTE | 2019-02-14 17:32 | REP ---
Portable chest x-ray: Single view. History: Chest pain. Comparison study: December 02, 2013. Findings: EKG monitoring electrodes overlie the chest. The heart is not enlarged and is unchanged. Pleural angles are sharp. Pulmonary vasculature is not increased. There is an old fracture of the surgical neck of the left humerus. Mild degenerative changes are seen in the thoracic spine. Impression: No active cardiopulmonary disease. Electronically Signed by Pradeep Thompson MD 02/14/2019 05:23 P
--- NOTE | 2019-02-14 21:33 | ECGEPIP ---
Stationary ECG Study [facility] - ED Test Date: 2019-02-14 Pat Name: ELIO TALAVERA Department: Room: - Gender: F Systems Management Consultant: : 1950 Requested By: Fidel Sosa Order Number: [id number] Reading MD: Fidel Mary Measurements Intervals [place] Rate: 90 P: 49 CT: 188 QRS: 35 QRSD: 88 T: 19 QT: 360 QTc: 442 Interpretive Statements SINUS RHYTHM NSTTW ABNORMALITIES SIMILAR TO 01/16/15 Electronically Signed On 02-14-2019 21:33:04 EDT by Fidel Mary
== END 2019-02-14 15:04 | disposition home or self-care (01) ==
LOC: M ED 12:25
DX: M94.0 Chondrocostal junction syndrome [Tietze] (principal); K29.70 Gastritis, unspecified, without bleeding; E11.9 Type 2 diabetes mellitus without complications; I10 Essential (primary) hypertension; E78.5 Hyperlipidemia, unspecified; Z86.73 Personal history of transient ischemic attack (TIA), and cerebral infarction without residual deficits; K21.9 Gastro-esophageal reflux disease without esophagitis; Z88.8 Allergy status to other drugs, medicaments and biological substances; Z79.899 Other long term (current) drug therapy; Z79.4 Long term (current) use of insulin; Z79.82 Long term (current) use of aspirin
CPT/HCPCS: 71045; 80048; 80076; 82550; 82553; 83690; 84443; 84484; 85025; 93005; 93041; 94760; 96374; 99285; C9113

== ENCOUNTER → 2019-03-03 | Outpatient (CLI) | payer MEDICARE, MEDICAID ==
[~2019-03-03] MED LIST changes: +CARA1TAB6 PO; +NAPR-837 PO
--- NOTE | 2019-03-03 16:04 | REPMRS ---
Patient History The patient states she had a clinical breast exam in 12/2018. Family history of breast cancer at age 50 or over in niece, prostate cancer under age 50 in son. Benign stereotatic breast biopsy of the right breast, October 21, 2012. Digital Woman Screen Mammo: March 03, 2019 - Exam #: [id number] Bilateral CC and MLO view(s) were taken. Technologist: Beatriz Aguilera, Technologist Prior study comparison: February 26, 2018, digital woman screen mammo performed at [facility]. February 27, 2017, digital woman screen mammo performed at [facility]. January 17, 2016, digital woman screen mammo performed at [facility]. FINDINGS: There are scattered fibroglandular densities. There is a needle biopsy marker clip in the right breast. There has been no change in the appearance of the mammogram from the prior studies. There is a mild amount of scattered fibroglandular density which is fairly symmetric. There is no interval development of dominant mass, architectural distortion, or clustered microcalcification suggestive of malignancy. 3-D tomosynthesis shows no additional findings. Assessment: BI-RADS/ACR category 2 mammogram. Benign Findings. Recommendation Routine screening mammogram of both breasts in 1 year (for women over age 40). This patient's Lifetime Breast Cancer RIsk is estimated at 4.4 %. This mammogram was interpreted with the aid of an FDA-approved computer-aided dectection system. Electronically Signed By: Zion Thompson MD 03/03/19 [id number]
== END ==
LOC: M WHC 14:24
PROVIDERS: ATTEND Nurse Practitioner Family
DX: Z12.31 Encounter for screening mammogram for malignant neoplasm of breast (principal)

== ENCOUNTER → 2019-03-09 | Outpatient (REF) | payer MEDICARE, MEDICAID ==
[2019-03-09 10:52] LABS: ALBUMIN 3.9 GM/DL (3.2-5.2); BILIRUBIN,TOTAL 0.6 MG/DL (0.2-1.0); CALCIUM LEVEL 9.2 MG/DL (8.8-10.2); CREATININE FOR GFR 1.31 MG/DL (0.55-1.30); FREE T4 0.96 NG/DL (0.76-1.46); GLOMERULAR FILTRATION RATE 42.9 (>45); POTASSIUM SERUM 3.6 MEQ/L (3.5-5.1); THYROID STIMULATING HORMONE 2.24 uIU/ML (0.358-3.740)
[2019-03-09 11:01] LABS: TOTAL 25(OH) VITAMIN D 35.4 NG/ML (30.0-100.0)
[2019-03-09 11:18] LABS: HEMOGLOBIN A1c 7.8 %
[2019-03-09 19:18] LABS: MALB URINE SIEMENS 11.7 MG/L; MAU/CREAT RATIO 6.1 MCG/MG (0.0-30.0)
== END ==
LOC: M SFHCPLAZ 08:02
PROVIDERS: ATTEND Nurse Practitioner Family
DX: E11.65 Type 2 diabetes mellitus with hyperglycemia (principal); E03.9 Hypothyroidism, unspecified; E55.9 Vitamin D deficiency, unspecified

== ENCOUNTER → 2019-06-08 | Outpatient (REF) | payer MEDICARE, MEDICAID ==
[~2019-06-08] MED LIST changes: +INSUHUMDS SC
[2019-06-08 11:47] LABS: ALBUMIN 3.8 GM/DL (3.2-5.2); BILIRUBIN,TOTAL 0.4 MG/DL (0.2-1.0); CALCIUM LEVEL 8.9 MG/DL (8.8-10.2); CREATININE FOR GFR 1.15 MG/DL (0.55-1.30); FREE T4 0.9 NG/DL (0.76-1.46); GLOMERULAR FILTRATION RATE 49.8 (>45); POTASSIUM SERUM 3.7 MEQ/L (3.5-5.1); THYROID STIMULATING HORMONE 2.43 uIU/ML (0.358-3.740); TOTAL PROTEIN 7.1 GM/DL (6.4-8.2)
[2019-06-08 11:50] LABS: HEMOGLOBIN A1c 7.8 %
[2019-06-09 08:06] LABS: HERPES ZOSTER, VARICELLA IgG 1398 index (Immune >165); MUMPS VIRUS IgG ANTIBODY >300.0 AU/mL (Immune >10.9); RUBEOLA IgG ANTIBODY >300.0 AU/mL (Immune >29.9)
== END ==
LOC: M SFHCPLAZ 08:05
PROVIDERS: ATTEND Nurse Practitioner Family
DX: Z01.84 Encounter for antibody response examination (principal); E11.65 Type 2 diabetes mellitus with hyperglycemia; E03.9 Hypothyroidism, unspecified

== ENCOUNTER → 2019-07-25 | Outpatient (CLI) | payer MEDICARE, MEDICAID ==
[~2019-07-25] MED LIST changes: -OMEP40CA2 PO; +OMEP40CA97 PO; -SIMV20TA2 PO; +SIMV20TA22 PO
--- NOTE | 2019-07-25 09:58 | REP ---
NUCLEAR GASTRIC EMPTYING SCAN: Following the oral administration of 1.02 mCi of technetium-99m sulfur colloid in two scrambled eggs and 6 ounces of water multiple images of the upper abdomen are performed in the anterior and posterior projections for 90 minutes. The end of 90 minutes 31% of the ingested activity has emptied from the stomach. The T1/2 is calculated to be 157 minutes which is above the normal value of 90 minutes. IMPRESSION: Mildly delayed gastric emptying. Electronically Signed by Cruz Pineda MD 07/25/2019 04:08 P
== END ==
LOC: M RAD 07:17
PROVIDERS: ATTEND Internal Medicine Gastroenterology
DX: R12 Heartburn (principal); R14.0 Abdominal distension (gaseous)
CPT/HCPCS: 78264; A9541

== ENCOUNTER → 2019-08-24 | Outpatient (REF) | payer MEDICARE, MEDICAID ==
[~2019-08-24] MED LIST changes: +SIMV20TA2 PO; -SIMV20TA22 PO
[2019-08-24 11:28] LABS: HEMOGLOBIN A1c 7.7 %
[2019-08-24 11:40] LABS: ALBUMIN 3.7 GM/DL (3.2-5.2); ALT/SGPT 34 U/L (12-78); BILIRUBIN,TOTAL 0.6 MG/DL (0.2-1.0); BLOOD UREA NITROGEN 25 MG/DL (7-18); CALCIUM LEVEL 8.9 MG/DL (8.8-10.2); CARBON DIOXIDE LEVEL 32 MEQ/L (21-32); CHLORIDE LEVEL 101 MEQ/L (98-107); CHOLESTEROL LEVEL 195 MG/DL (<200); CHOLESTEROL RISK RATIO 7.222 (<5); CREATININE FOR GFR 1.28 MG/DL (0.55-1.30); GLUCOSE, FASTING 180 MG/DL (70-100); HDL CHOLESTEROL 27 MG/DL (>40); NON-HDL-C 168 MG/DL; POTASSIUM SERUM 3.3 MEQ/L (3.5-5.1); SODIUM LEVEL 139 MEQ/L (136-145); TRIGLYCERIDES LEVEL 445 MG/DL (<150)
[2019-08-24 11:45] LABS: TOTAL 25(OH) VITAMIN D 42.2 NG/ML (30.0-100.0)
== END ==
LOC: M SFHCPLAZ 08:18
PROVIDERS: ATTEND Nurse Practitioner Family
DX: E11.9 Type 2 diabetes mellitus without complications (principal); E78.2 Mixed hyperlipidemia; E55.9 Vitamin D deficiency, unspecified; Z79.899 Other long term (current) drug therapy

== ENCOUNTER → 2019-10-11 | Outpatient (CLI) | payer MEDICARE, MEDICAID ==
[~2019-10-11] MED LIST changes: -SIMV20TA2 PO; +SIMV20TA22 PO
--- NOTE | 2019-10-11 16:30 | REP ---
RENAL ULTRASOUND: Real-time sonographic evaluation of the kidney was performed. Kidneys are normal in size and echotexture, right kidney measuring 10.8 x 6.4 x 6.2 cm and left kidney 10.5 x 4.6 x 5.1 cm. There is no hydronephrosis bilaterally. There is a cyst in the lower pole of the right kidney 2.3 x 1.9 x 1.7 cm. There is no other evidence of mass or definite stone. Ureteral jets are visualized in the urinary bladder bilaterally with Doppler color evaluation. IMPRESSION: No hydronephrosis. Cyst lower pole right kidney maximum diameter 2.3 cm. Electronically Signed by Cruz Pineda MD 10/11/2019 05:00 P
== END ==
LOC: M RAD 14:31
PROVIDERS: ATTEND Internal Medicine Nephrology
DX: N18.3 Chronic kidney disease, stage 3 (moderate) (principal); N28.1 Cyst of kidney, acquired

== ENCOUNTER → 2019-12-01 | Outpatient (CLI) | payer MEDICARE ==
[2019-12-01 13:31] LABS: FREE THYROXINE INDEX 2.6 % (1.3-4.8); THYROID STIMULATING HORMONE 2.02 uIU/ML (0.358-3.740); THYROXINE (T4) 8.5 UG/DL (4.5-12.0)
== END ==
LOC: M LAB 12:04
PROVIDERS: ATTEND Ophthalmology
DX: H47.019 Ischemic optic neuropathy, unspecified eye (principal)

== ENCOUNTER → 2019-12-01 | Outpatient (CLI) | payer MEDICARE, MEDICAID ==
[2019-12-01 14:05] LABS: CALCIUM LEVEL 9.4 MG/DL (8.8-10.2); CHOLESTEROL RISK RATIO 6.6 (<5); CREATININE FOR GFR 1.3 MG/DL (0.55-1.30); FREE T4 1.19 NG/DL (0.76-1.46); GLOMERULAR FILTRATION RATE 43.1 (>39); POTASSIUM SERUM 3.2 MEQ/L (3.5-5.1); THYROID STIMULATING HORMONE 2.47 uIU/ML (0.358-3.740); TOTAL 25(OH) VITAMIN D 47.2 NG/ML (30.0-100.0)
[2019-12-01 14:30] LABS: MALB URINE SIEMENS 14.5 MG/L; MAU/CREAT RATIO 7.1 MCG/MG (0.0-30.0)
== END ==
LOC: M PLALAB 10:10
PROVIDERS: ATTEND Nurse Practitioner Family
DX: E03.9 Hypothyroidism, unspecified (principal); E11.9 Type 2 diabetes mellitus without complications; E55.9 Vitamin D deficiency, unspecified; I10 Essential (primary) hypertension; H47.019 Ischemic optic neuropathy, unspecified eye

== ENCOUNTER 2020-01-23 10:40 | Emergency (ER) | payer MEDICARE, MEDICAID ==
[~2020-01-23] VITALS: Ht 157.5 cm; Wt 85.0 kg
[2020-01-23] MEDS ORDERED: POTA10CA32 (10:52)
--- NOTE | 2020-01-23 11:09 | REP ---
Portable chest x-ray: Sitting AP view. History: Dyspnea and cough. Comparison chest x-ray: February 14, 2019. Findings: Monitoring electrodes are seen overlying the chest. Heart is not enlarged. Pulmonary vasculature is not increased. Pleural angles are sharp. Impression: No active disease. Electronically Signed by Pradeep Thompson MD 01/23/2020 11:01 A
[2020-01-23 11:15] LABS: VENOUS HCO3 24.2 MEQ/L (23.0-27.0); VENOUS O2 SATURATION 96.3 % (60.0-80.0); VENOUS PARTIAL PRESSURE CO2 34.5 mmHg (38.0-50.0); VENOUS PARTIAL PRESSURE O2 80.8 mmHg (30.0-50.0); VENOUS PH 7.464 UNITS (7.330-7.430); VENOUS STANDARD HCO3 25.3 MEQ/L; VENOUS TOTAL CO2 25.3 MEQ/L (24.0-28.0)
[2020-01-23] MEDS ORDERED: predniSONE 20 MG TAB PO ONE (11:15)
[2020-01-23 11:23] LABS: BASO # 0.1 10^3/uL (0.0-0.2); BASO % 0.7 % (0.0-1.0); EOS # 0.2 10^3/uL (0.0-0.5); EOS % 3.3 % (0.0-3.0); HEMATOCRIT 42.9 % (36.0-47.0); HEMOGLOBIN 14.4 g/dl (12.0-15.5); LYMPH # 1.4 10^3/uL (1.5-5.0); LYMPH % 19.1 % (24.0-44.0); MEAN CORPUSCULAR HEMOGLOBIN 26.8 pg (27.0-33.0); MEAN CORPUSCULAR HGB CONC 33.6 g/dl (32.0-36.5); MEAN CORPUSCULAR VOLUME 79.9 fl (80.0-96.0); MONO # 0.8 10^3/uL (0.0-0.8); MONO % 11.9 % (0.0-5.0); NEUTROPHILS # 4.6 10^3/uL (1.5-8.5); NEUTROPHILS % 64.7 % (36.0-66.0); PLATELET COUNT, AUTOMATED 162 10^3/uL (150-450); RED BLOOD COUNT 5.37 10^6/uL (4.00-5.40); WHITE BLOOD COUNT 7.1 10^3/uL (4.0-10.0)
[2020-01-23 11:36] LABS: INR 1.1; PROTHROMBIN TIME 13.9 SECONDS (11.8-14.0)
[2020-01-23 11:48] LABS: ALBUMIN 3.8 GM/DL (3.2-5.2); ALT/SGPT 37 U/L (12-78); BILIRUBIN,DIRECT 0.2 MG/DL (0.0-0.2); BILIRUBIN,TOTAL 0.9 MG/DL (0.2-1.0); BLOOD UREA NITROGEN 23 MG/DL (7-18); CARBON DIOXIDE LEVEL 27 MEQ/L (21-32); CHLORIDE LEVEL 103 MEQ/L (98-107); CK-MB VALUE MASS < 1.0 NG/ML (<3.6); CPK CREATINE PHOSPHOKINASE 64 U/L (26-192); GLOMERULAR FILTRATION RATE 47.3 (>39); GLUCOSE, FASTING 160 MG/DL (70-100); MB/CK RELATIVE INDEX 1.56 (< OR =4); NT-PRO BNP 55 PG/ML (<125); POTASSIUM SERUM 3.2 MEQ/L (3.5-5.1); SODIUM LEVEL 138 MEQ/L (136-145); TOTAL PROTEIN 7.3 GM/DL (6.4-8.2); TROPONIN I < 0.02 NG/ML (< 0.10)
[2020-01-23] MEDS ORDERED: POTASSIUM CHLORIDE 10 MEQ SR TABLET PO ONE (12:00)
[2020-01-23] MEDS ORDERED: EASY-106 XX (12:56)
[2020-01-23] MEDS ORDERED: ALBU83IN NEB (12:56)
[2020-01-23 13:21] VITALS: BP 138/62
--- NOTE | 2020-01-23 17:26 | ECGEPIP ---
[facility] - ED Test Date: 2020-01-23 Pat Name: ELIO TALAVERA Department: Room: - Gender: Female Childcare Aide: : 1950 Requested By: Bhavana Street Order Number: [id number] Reading MD: Bhavana Street Measurements Intervals [place] Rate: 80 P: 51 SC: 203 QRS: 29 QRSD: 120 T: 3 QT: 386 QTc: 446 Interpretive Statements SINUS RHYTHM POSSIBLE INFERIOR MYOCARDIAL INFARCTION, PROBABLY OLD NSTTW abnormalities DECREASED RATE 02/14/19 Electronically Signed on 01-23-2020 17:26:[address]
== END 2020-01-23 13:23 | disposition home or self-care (01) ==
LOC: M ED 10:40 → EDBD 10:40 → M ED 13:23
DX: B34.2 Coronavirus infection, unspecified (principal); J45.909 Unspecified asthma, uncomplicated; E11.9 Type 2 diabetes mellitus without complications; I10 Essential (primary) hypertension; E78.5 Hyperlipidemia, unspecified; E66.9 Obesity, unspecified; Z86.73 Personal history of transient ischemic attack (TIA), and cerebral infarction without residual deficits; E07.9 Disorder of thyroid, unspecified; Z85.41 Personal history of malignant neoplasm of cervix uteri; Z87.891 Personal history of nicotine dependence; Z82.49 Family history of ischemic heart disease and other diseases of the circulatory system; Z79.82 Long term (current) use of aspirin; Z79.4 Long term (current) use of insulin; Z79.899 Other long term (current) drug therapy; Z88.8 Allergy status to other drugs, medicaments and biological substances

== ENCOUNTER → 2020-05-01 | Outpatient (CLI) | payer MEDICARE, MEDICAID ==
[~2020-05-01] MED LIST changes: +ALBU83IN NEB; +EASY-106 XX; -ERYT1OIN26 OU; +ERYT5OIN25 OU; +POTA10CA32
[2020-05-01 13:08] LABS: ALBUMIN 3.7 GM/DL (3.2-5.2); BILIRUBIN,TOTAL 0.4 MG/DL (0.2-1.0); CALCIUM LEVEL 8.5 MG/DL (8.8-10.2); CHOLESTEROL RISK RATIO 7.115 (<5); CREATININE FOR GFR 1.12 MG/DL (0.55-1.30); FREE T4 0.99 NG/DL (0.76-1.46); GLOMERULAR FILTRATION RATE 51.2 (>39); THYROID STIMULATING HORMONE 2.87 uIU/ML (0.358-3.740)
[2020-05-01 13:11] LABS: MALB URINE SIEMENS 20.2 MG/L; MAU/CREAT RATIO 6.8 MCG/MG (0.0-30.0)
[2020-05-01 13:33] LABS: HEMOGLOBIN A1c 7.6 %
[2020-05-01 14:04] LABS: TOTAL 25(OH) VITAMIN D 45.9 NG/ML (30.0-100.0)
== END ==
LOC: M PLALAB 09:17
PROVIDERS: ATTEND Nurse Practitioner Family
DX: E11.65 Type 2 diabetes mellitus with hyperglycemia (principal); E03.9 Hypothyroidism, unspecified; E55.9 Vitamin D deficiency, unspecified; E78.2 Mixed hyperlipidemia

== ENCOUNTER → 2020-05-06 | Outpatient (CLI) | payer MEDICARE, MEDICAID | LOC: M LABSMTC 10:15 | PROVIDERS: ATTEND Physical Medicine & Rehabilitation | DX: Z03.818 Encounter for observation for suspected exposure to other biological agents ruled out (principal) ==

== ENCOUNTER → 2020-05-25 | Outpatient (CLI) | payer MEDICARE, MEDICAID | LOC: M LABSMTC 11:37 | PROVIDERS: ATTEND Physician Assistant | DX: Z01.818 Encounter for other preprocedural examination (principal); Z11.59 Encounter for screening for other viral diseases ==

== ENCOUNTER → 2020-06-14 | Outpatient (CLI) | payer MEDICARE, MEDICAID ==
--- NOTE | 2020-07-04 11:10 | REPMRS ---
Patient History The patient states she has not had a clinical breast exam in over a year. Patient has history of endometrial cancer at age 28. Family history of breast cancer at age 50 or over in niece, prostate cancer under age 50 in son. Benign stereotatic breast biopsy of the right breast, October 21, 2012. No Hormone Replacement Therapy Digital Woman Screen Mammo: June 14, 2020 - Exam #: [id number] Bilateral CC and MLO view(s) were taken. Technologist: Melanie Salgado, Technologist Prior study comparison: March 03, 2019, bilateral digital woman screen mammo performed at [facility]. February 26, 2018, digital woman screen mammo performed at [facility]. February 27, 2017, digital woman screen mammo performed at [facility]. FINDINGS: The breast tissue is almost entirely fat. The Volpara volumetric breast density category is: A. There is a needle biopsy marker clip in the right breast. There has been no change in the appearance of the mammogram from the prior studies. There is no interval development of dominant mass, architectural distortion, or grouped microcalcification typical of malignancy. 3-D tomosynthesis shows no additional findings. Assessment: BI-RADS/ACR category 2 mammogram. Benign Findings. Recommendation Routine screening mammogram of both breasts in 1 year (for women over age 40). This patient's Lifetime Breast Cancer RIsk is estimated at 4.1 %. This mammogram was interpreted with the aid of an FDA-approved computer-aided dectection system. Electronically Signed By: Zion Thompson MD 07/04/20 [id number]
== END ==
LOC: M WHC 14:07
PROVIDERS: ATTEND Nurse Practitioner Family
DX: Z12.31 Encounter for screening mammogram for malignant neoplasm of breast (principal)

== ENCOUNTER → 2020-08-14 | Outpatient (REF) | payer MEDICARE, MEDICAID ==
[2020-08-14 14:11] LABS: APPEARANCE, URINE CLOUDY (CLEAR); BACTERIA, URINE AUTO 1+ (NEGATIVE); BILIRUBIN, URINE AUTO NEGATIVE (NEGATIVE); BLOOD, URINE BLOOD NEGATIVE (NEGATIVE); CALCIUM OXALATE CRYSTALS SMALL; COLOR, URINE YELLOW (YELLOW); GLUCOSE, URINE (UA) AUTO NEGATIVE (NEGATIVE); KETONE, URINE AUTO NEGATIVE (NEGATIVE); LEUKOCYTE ESTERASE, URINE AUTO 3+ (NEGATIVE); MUCUS, URINE SMALL (NEGATIVE); NITRITE, URINE AUTO NEGATIVE (NEGATIVE); PROTEIN, URINE AUTO NEGATIVE (NEGATIVE); RBC, URINE AUTO 3 /HPF (0-3); SPECIFIC GRAVITY URINE AUTO 1.025 (1.002-1.035); SQUAMOUS EPITHELIAL CELL UR AU 1 /HPF (0-6); UROBILINOGEN, URINE AUTO 0.2 mg/dL (0.0-2.0); WBC, URINE AUTO 163 /HPF (0-3)
[2020-08-14 14:46] LABS: HEMOGLOBIN A1c 6.7 %
[2020-08-14 15:03] LABS: ALBUMIN 3.8 GM/DL (3.2-5.2); BILIRUBIN,TOTAL 0.6 MG/DL (0.2-1.0); CALCIUM LEVEL 9.1 MG/DL (8.8-10.2); CREATININE FOR GFR 1.03 MG/DL (0.55-1.30); FREE T4 1.07 NG/DL (0.76-1.46); GLOMERULAR FILTRATION RATE 56.4 (>39); POTASSIUM SERUM 4.2 MEQ/L (3.5-5.1); THYROID STIMULATING HORMONE 3.05 uIU/ML (0.358-3.740); TOTAL 25(OH) VITAMIN D 42.6 NG/ML (30.0-100.0); TOTAL PROTEIN 7.1 GM/DL (6.4-8.2)
[2020-08-14 15:32] LABS: MALB URINE SIEMENS 46.4 MG/L; MAU/CREAT RATIO 21.7 MCG/MG (0.0-30.0)
== END ==
LOC: M SFHCPLAZ 10:02
PROVIDERS: ATTEND Nurse Practitioner Family
DX: E11.65 Type 2 diabetes mellitus with hyperglycemia (principal); R35.0 Frequency of micturition; E03.9 Hypothyroidism, unspecified; E55.9 Vitamin D deficiency, unspecified; Z23 Encounter for immunization
CPT/HCPCS: 36415; 80053; 81001; 82043; 82306; 83036; 84439; 84443; 87088; 87186; 90682; G0008; G0463

== ENCOUNTER → 2020-10-02 | Outpatient (REF) | payer MEDICARE, MEDICAID | LOC: M LAB REF 16:43 | PROVIDERS: ATTEND Nurse Practitioner Family | DX: N39.0 Urinary tract infection, site not specified (principal) ==

== ENCOUNTER → 2021-01-01 | Outpatient (REF) | payer MEDICARE, MEDICAID ==
[2021-01-01 14:11] LABS: HEMOGLOBIN A1c 7.8 %
[2021-01-01 14:31] LABS: ALBUMIN 3.8 GM/DL (3.2-5.2); BILIRUBIN,TOTAL 0.5 MG/DL (0.2-1.0); CALCIUM LEVEL 9.1 MG/DL (8.8-10.2); CHOLESTEROL RISK RATIO 7.142 (<5); CREATININE FOR GFR 1.18 MG/DL (0.55-1.30); FREE T4 0.94 NG/DL (0.76-1.46); GLOMERULAR FILTRATION RATE 48.1 (>39); POTASSIUM SERUM 4.3 MEQ/L (3.5-5.1); THYROID STIMULATING HORMONE 3.78 uIU/ML (0.358-3.740); TOTAL PROTEIN 7.1 GM/DL (6.4-8.2)
[2021-01-01 14:35] LABS: TOTAL 25(OH) VITAMIN D 41.2 NG/ML (30.0-100.0)
[2021-01-01 14:43] LABS: MALB URINE SIEMENS 13.6 MG/L; MAU/CREAT RATIO 6.2 MCG/MG (0.0-30.0)
== END ==
LOC: M PLALAB 09:46
PROVIDERS: ATTEND Nurse Practitioner Family
DX: E11.65 Type 2 diabetes mellitus with hyperglycemia (principal); E03.9 Hypothyroidism, unspecified; E78.2 Mixed hyperlipidemia; E55.9 Vitamin D deficiency, unspecified

== ENCOUNTER → 2021-02-01 | Outpatient (CLI) | payer MEDICARE, MEDICAID ==
[~2021-02-01] MED LIST changes: +ASPI-569 PO; -ASPI81TAEC PO
--- NOTE | 2021-02-01 16:35 | REPVR ---
PROCEDURE INFORMATION: Exam: MR Angiogram Head Without Contrast, Arteries Exam date and time: 02/01/2021 3:38 PM Age: 70 years old Clinical indication: Pain; Headache; Patient HX: PT states confusion that comes and goes, severe head aches; Additional info: Memory loss TECHNIQUE: Imaging protocol: MR angiogram head without contrast. Exam focused on the arteries. COMPARISON: MRA BRAIN W/O CONTRAST 01/16/2015 2:09 PM FINDINGS: ANTERIOR CIRCULATION: Right internal carotid artery: Intracranial segment is patent with no significant stenosis. No aneurysm. 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 CTA is recommended for further assessment. Right anterior cerebral artery: No occlusion or significant stenosis. No aneurysm. Left internal carotid artery: Intracranial segment is patent with no significant stenosis. No aneurysm. Left middle cerebral artery: No occlusion or significant stenosis. No aneurysm. Left anterior cerebral artery: The A1 segment of the left anterior cerebral artery is the dominant supply of the anterior cerebral circulation. POSTERIOR CIRCULATION: Right vertebral artery: No occlusion or significant stenosis. No aneurysm. Left vertebral artery: No occlusion or significant stenosis. No aneurysm. Basilar artery: No occlusion or significant stenosis. No aneurysm. Right posterior cerebral artery: No occlusion or significant stenosis. No aneurysm. Left posterior cerebral artery: There is origin of the left posterior cerebral artery. IMPRESSION: 1. There is origin of the left posterior cerebral artery. 2. The A1 segment of the left anterior cerebral artery is the dominant supply of the anterior cerebral circulation. 3. 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 CTA is recommended for further assessment. Electronically signed by: Robert Hoyt On 02/01/2021 16:35:06 PM
--- NOTE | 2021-02-01 16:41 | REPVR ---
PROCEDURE INFORMATION: Exam: MR Head Without Contrast Exam date and time: 02/01/2021 3:38 PM Age: 70 years old Clinical indication: Pain; Headache; Tension; Patient HX: PT states confusion that comes and goes, severe head aches; Additional info: Memory loss TECHNIQUE: Imaging protocol: MR of the head without contrast. COMPARISON: 1. MRA BRAIN W/O CONTRAST 02/01/2021 3:[address] Head without contrast 11/21/2016 5:36:[address] Head without contrast 04/12/2014 2:38:10 PM FINDINGS: Brain: There is moderate atrophy and chronic white matter microangiopathic changes. There is no abnormal diffusion weighted signal intensity to suggest an acute ischemic event. 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 Cerebral ventricles: There is compensatory ventricular dilation. Bones/joints: Unremarkable. Paranasal sinuses: Normal as visualized. No acute sinusitis. Mastoid air cells: Normal as visualized. No mastoid effusion. Orbital cavity: Unremarkable. Soft tissues: Unremarkable. Other vasculature: Normal vascular flow voids are present. Other findings: There is no abnormal suceptibility to suggest hemorrhage. IMPRESSION: 1. There is no abnormal diffusion weighted signal intensity to suggest an acute ischemic event. 2. 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 3. No acute intracranial process is identified. Electronically signed by: Robert Hoyt On 02/01/2021 16:41:03 PM
== END ==
LOC: M PLARAD 14:48
PROVIDERS: ATTEND Nurse Practitioner Family
DX: R41.3 Other amnesia (principal); R93.0 Abnormal findings on diagnostic imaging of skull and head, not elsewhere classified

== ENCOUNTER → 2021-02-07 | Outpatient (CLI) | payer MEDICARE, MEDICAID ==
[~2021-02-07] MED LIST changes: +ISOVUE-370 76% 100ML VIAL As Ordered ONE
--- NOTE | 2021-02-07 09:41 | REPVR ---
PROCEDURE INFORMATION: Exam: CT Angiography Head With Contrast Exam date and time: 02/07/2021 9:00 AM Age: 70 years old Clinical indication: Other: Aneurysm of middle cerebral artery TECHNIQUE: Imaging protocol: Computed tomography angiography of the head with intravenous contrast. 3D rendering (Not supervised by radiologist): MIP and/or 3D reconstructed images were created by the technologist. Radiation optimization: All CT scans at this facility use at least one of these dose optimization techniques: automated exposure control; mA and/or kV adjustment per patient size (includes targeted exams where dose is matched to clinical indication); or iterative reconstruction. Contrast material: ISOVUE 370; Contrast volume: 75 ml; Contrast route: INTRAVENOUS (IV); COMPARISON: MRA BRAIN W/O CONTRAST 02/01/2021 3:16 PM FINDINGS: ANTERIOR CIRCULATION: Right internal carotid artery: Unremarkable. Intracranial segment is patent with no significant stenosis. No aneurysm. Right middle cerebral artery: Examination again demonstrates a tiny 2 mm anteriorly directed aneurysm at the right middle cerebral artery trifurcation, unchanged since the previous study. This is best appreciated on series 402, image 20. Right anterior cerebral artery: Unremarkable. No occlusion or significant stenosis. No aneurysm. Left internal carotid artery: Unremarkable. Intracranial segment is patent with no significant stenosis. No aneurysm. Left middle cerebral artery: Unremarkable. No occlusion or significant stenosis. No aneurysm. Left anterior cerebral artery: Unremarkable. No occlusion or significant stenosis. No aneurysm. POSTERIOR CIRCULATION: Right vertebral artery: Unremarkable. No occlusion or significant stenosis. No aneurysm. Left vertebral artery: Unremarkable. No occlusion or significant stenosis. No aneurysm. Basilar artery: Unremarkable. No occlusion or significant stenosis. No aneurysm. Right posterior cerebral artery: Unremarkable. No occlusion or significant stenosis. No aneurysm. Left posterior cerebral artery: There is origin of the left posterior cerebral artery. No stenosis. No occlusion. Pituitary gland and sella: Examination reveals an approximately 1.2 x 1.1 x 1.0 cm densely calcified meningioma arising from the tuberculum sella and extending into the sella turcica best appreciated on sagittal series 406, image 52.Benign hyperostosis frontalis is present. IMPRESSION: 1. Examination again demonstrates a tiny 2 mm anteriorly directed aneurysm at the right middle cerebral artery trifurcation, unchanged since the previous study. This is best appreciated on series 402, image 20. 2. There is origin of the left posterior cerebral artery. No stenosis. No occlusion. 3. Examination reveals an approximately 1.2 x 1.1 x 1.0 cm densely calcified meningioma arising from the tuberculum sella and extending into the sella turcica best appreciated on sagittal series 406, image 52.Benign hyperostosis frontalis is present. Electronically signed by: Melquiades Lazo On 02/07/2021 09:41:59 AM
== END ==
LOC: M RAD 08:39
PROVIDERS: ATTEND Nurse Practitioner Family
DX: I67.1 Cerebral aneurysm, nonruptured (principal)
CPT/HCPCS: 70496; Q9967

== ENCOUNTER → 2021-03-20 | Outpatient (CLI) | payer MEDICARE, MEDICAID ==
[~2021-03-20] MED LIST changes: -ISOVUE-370 76% 100ML VIAL As Ordered ONE
[2021-03-20 11:23] LABS: CREATININE FOR GFR 1.12 MG/DL (0.55-1.30); GLOMERULAR FILTRATION RATE 51.1 (>39)
== END ==
LOC: M LAB 10:21
PROVIDERS: ATTEND Psychiatry & Neurology Neurology
DX: I10 Essential (primary) hypertension (principal)

== ENCOUNTER → 2021-05-14 | Outpatient (CLI) | payer OTHER, MEDICAID ==
[~2021-05-14] MED LIST changes: +OMEP40CA4 PO; -OMEP40CA97 PO
[2021-05-14 11:01] LABS: ALBUMIN 4.2 GM/DL (3.2-5.2); BILIRUBIN,TOTAL 0.7 MG/DL (0.2-1.0); CALCIUM LEVEL 9.3 MG/DL (8.8-10.2); CHOLESTEROL RISK RATIO 4.181 (<5); CREATININE FOR GFR 1.13 MG/DL (0.55-1.30); FREE T4 0.88 NG/DL (0.76-1.46); GLOMERULAR FILTRATION RATE 50.5 (>39); POTASSIUM SERUM 4.1 MEQ/L (3.5-5.1); THYROID STIMULATING HORMONE 4.49 uIU/ML (0.358-3.740); TOTAL PROTEIN 7.5 GM/DL (6.4-8.2)
[2021-05-14 11:42] LABS: HEMOGLOBIN A1c 7.6 %
== END ==
LOC: M PLALAB 09:06
PROVIDERS: ATTEND Nurse Practitioner Family
DX: E11.65 Type 2 diabetes mellitus with hyperglycemia (principal); E78.2 Mixed hyperlipidemia; E03.9 Hypothyroidism, unspecified

== ENCOUNTER → 2021-06-04 | Outpatient (REF) | payer OTHER, MEDICAID | LOC: M LAB REF 19:00 | PROVIDERS: ATTEND Nurse Practitioner Family | DX: E83.42 Hypomagnesemia (principal) ==

== ENCOUNTER → 2021-06-18 | Outpatient (CLI) | payer MEDICAID, MEDICARE, OTHER ==
[~2021-06-18] MED LIST changes: +ACET500T15 PO; +ATOR1TAB21 PO; +ERGO500029 PO; +FLON27.5 NARES; -POTA10CA32; +POTA10CA32 PO; +PRESCAP PO; +SUCR1TA PO; +TIZA4TAB4 PO
--- NOTE | 2021-06-18 14:47 | DEXAMM ---
INDICATION: M85.80 LOW BONE DENSITY. COMPARISON: None. TECHNIQUE: Bone density was measured using dual-energy x-ray absorptionmetry (DEXA). FINDINGS: AP SPINE L1-L4 BMD 1.107 g/cm2 Young Adult T-Score -0.7 Age Matched Z-Score 0.2. LT FEMUR, TOTAL BMD 0.779 g/cm2 Young Adult T-Score -1.8 Age Matched Z-Score -1.1. LT NECK BMD 0.716 g/cm2 Young Adult T-Score -2.3 Age Matched Z-Score -1.3. RT FEMUR, TOTAL BMD 0.731 g/cm2 Young Adult T-Score -2.2 Age Matched Z-Score -1.4. RT NECK BMD 0.727 g/cm2 Young Adult T-Score -2.2 Age Matched Z-Score -1.2. IMPRESSION: There is normal of the spine. There is low bone density of the left hip. There is low bone density of the right hip. FOLLOW-UP: Recommendation for the next bone density exam: 2 years. <Electronically signed by Wale Mcclellan > 06/18/21 [id number]
== END ==
LOC: M WHC 09:49
PROVIDERS: ATTEND Nurse Practitioner Family
DX: M85.80 Other specified disorders of bone density and structure, unspecified site (principal); M85.88 Other specified disorders of bone density and structure, other site

== ENCOUNTER 2021-06-19 10:31 | Observation (INO) | payer MEDICARE ==
[~2021-06-19] VITALS: Ht 157.5 cm; Wt 90.3 kg
[~2021-06-19 10:31] MED LIST changes: -ACET500T15 PO; -ATOR1TAB21 PO; -ERGO500029 PO; -FLON27.5 NARES; -PRESCAP PO; -SUCR1TA PO; -TIZA4TAB4 PO
[2021-06-19 11:12] LABS: VENOUS BASE EXCESS 0.1 (-2.0-2.0); VENOUS HCO3 24.1 MEQ/L (23.0-27.0); VENOUS O2 SATURATION 95.2 % (60.0-80.0); VENOUS PARTIAL PRESSURE CO2 37.4 mmHg (38.0-50.0); VENOUS PH 7.427 UNITS (7.330-7.430); VENOUS STANDARD HCO3 24.5 MEQ/L; VENOUS TOTAL CO2 25.2 MEQ/L (24.0-28.0)
[2021-06-19 11:15] LABS: BASO # 0.1 10^3/uL (0.0-0.2); BASO % 1.1 % (0.0-1.0); EOS # 0.2 10^3/uL (0.0-0.5); EOS % 2.7 % (0.0-3.0); HEMATOCRIT 41.9 % (36.0-47.0); HEMOGLOBIN 13.8 g/dl (12.0-15.5); LYMPH # 1.5 10^3/uL (1.5-5.0); LYMPH % 26.7 % (24.0-44.0); MEAN CORPUSCULAR HEMOGLOBIN 26.8 pg (27.0-33.0); MEAN CORPUSCULAR HGB CONC 32.9 g/dl (32.0-36.5); MEAN CORPUSCULAR VOLUME 81.5 fl (80.0-96.0); MONO # 0.6 10^3/uL (0.0-0.8); MONO % 11.2 % (2.0-8.0); NEUTROPHILS # 3.3 10^3/uL (1.5-8.5); NEUTROPHILS % 58.1 % (36.0-66.0); PLATELET COUNT, AUTOMATED 154 10^3/uL (150-450); RED BLOOD COUNT 5.14 10^6/uL (4.00-5.40); WHITE BLOOD COUNT 5.7 10^3/uL (4.0-10.0)
[2021-06-19 11:48] LABS: BLOOD UREA NITROGEN 15 MG/DL (7-18); CARBON DIOXIDE LEVEL 23 MEQ/L (21-32); CHLORIDE LEVEL 109 MEQ/L (98-107); GLOMERULAR FILTRATION RATE > 60.0 (>39); GLUCOSE, FASTING 196 MG/DL (70-100); MAGNESIUM LEVEL 2.1 MG/DL (1.8-2.4); POTASSIUM SERUM 3.9 MEQ/L (3.5-5.1); SODIUM LEVEL 141 MEQ/L (136-145)
--- NOTE | 2021-06-19 12:49 | REP ---
INDICATION: trauma. COMPARISON: 11/21/2016 TECHNIQUE: 4.5 mm contiguous transaxial sections were obtained from the skull base to the cerebral convexities with thin cuts through the posterior fossa without the administration of intravenous contrast. FINDINGS: The ventricles and sulci are essentially unchanged. Patchy deep cerebral white matter lucency is again noted status quo. Once again, internal capsule lacunar infarcts are seen bilaterally. No acute extra-axial fluid collections have developed. There is no shift of the midline structures. There is no change in appearance of the imaged paranasal sinuses or mastoid air cells. There is no change in appearance of the posterior fossa. IMPRESSION: No significant change compared to the prior exam. Stable appearing chronic changes without evidence of acute intracranial pathology. The 2 mm sized right middle cerebral artery aneurysm seen on the prior CTA of 02/07/2021 cannot be appreciated on this standard noncontrast enhanced CT examination of the brain. <Electronically signed by Errol Isbell > 06/19/21 0179
--- NOTE | 2021-06-19 13:04 | REP ---
INDICATION: trauma. COMPARISON: None. TECHNIQUE: Helical scanning 2 x 2 mm increments reconstructed in both sagittal and coronal planes FINDINGS: Vertebral body height and alignment is within normal limits. There is mild to moderate disc space narrowing at every level particularly at the C6-7 level where anterior and posterior osteophytic ridging is the heaviest. Hypertrophic degenerative facet and uncovertebral joint changes are present at every level bilaterally. There is no acute fracture, dislocation, or subluxation. There is no abnormal paraspinal soft tissue swelling. IMPRESSION: No acute abnormality. Chronic changes as described above. <Electronically signed by Errol Isbell > 06/19/21 1300
--- NOTE | 2021-06-19 13:05 | REP ---
INDICATION: trauma. COMPARISON: None. TECHNIQUE: Five views FINDINGS: Vertebral body height and alignment is within normal limits. There is anterior lipping and disc space narrowing at every level. Degenerative facet joint changes are seen bilaterally at every level particularly L4-5 and L5-S1. There is no evidence of spondylolysis or spondylolisthesis. The pedicles are intact bilaterally. There is marginal osteophytosis seen at every level bilaterally which is mild. IMPRESSION: Chronic changes as described above. <Electronically signed by Errol Isbell > 06/19/21 [id number]
--- NOTE | 2021-06-19 13:05 | REP ---
INDICATION: trauma. COMPARISON: 01/23/2020 TECHNIQUE: AP view FINDINGS: The lungs are clear. The heart is not enlarged. There is no failure or pleural effusion. IMPRESSION: No active process. No change since the previous study. <Electronically signed by Wale Mcclellan > 06/19/21 2351
[2021-06-19] MEDS ORDERED: MOM 30ML SUSPENSION UDC PO PRN (13:35)
[2021-06-19] MEDS ORDERED: DEXTROSE 50% 50 ML SYRINGE IV PRN (13:35)
[2021-06-19] MEDS ORDERED: GLUCOSE 4GM CHEW TABLET PO PRN (13:35)
[2021-06-19] MEDS ORDERED: GLUCAGON INJ 1MG VIAL SC PRN (13:35)
[2021-06-19] MEDS ORDERED: ACETAMINOPHEN TAB 650MG DOSE (2X325MG) PO PRN (13:35)
[2021-06-19] MEDS ORDERED: MAALOX 30 ML SUSP *UDC PO PRN (13:35)
--- NOTE | 2021-06-19 13:58 | HPEPDOC ---
[facility] Medical History & Physical Date of Admission Jun 19, 2021 Date of Service: Jun 19, 2021 History and Physical Chief complaint: Who presented to the hospital after she was found on the ground History of present illness: Patient is a 70-year-old female with a PMHx of HTN, IDDM2, DLP, Asthma, Hypothyroidism, Osteopenia, Obesity, GERD who presented to the ER after she was found on the ground this morning. Yesterday (06/18) evening, patient reported that she was eating and almost choked but was able to cough up her food. She went to bed that evening. This morning she woke on the ground of her living room. When she woke up on the ground, she reports that the only thing she remembers is opening her eyes and being surrounded by EMS staff. Patient did report she was experiencing some left arm pain. She denied any nausea, vomiting, abdominal pain, constipation, diarrhea, or urinary discomfort. She reports her last bowel movement was the day prior, she denied any chest pain, cough or palpitations. Patient denied any incontinence of stool or urine. Denied any tongue biting. Denied any headache. Patient did report a lot of confusion upon waking up and couldnt remember specifics. Patient did report some shortness of breath. Patient reports her appetite is fairly normal. Denies any changes in her weight. Patient has not taken any sleep medications, but does report that her sleep has been very poor. Patient has been worked up for a syncopal episode in April 2021 with her primary care provider, which involved MRI and EEG. Patient was informed at that time that she had small aneurysm in her brain that did not require any surgical intervention because of the size. 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 Chronic changes as described above. CXR 06/19: No active process. No change since the previous study. CT Head 06/19: No significant change compared to the prior exam. Stable appearing chronic changes without evidence of acute intracranial pathology. 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 Lumbar Spine XR 06/19: Chronic changes as described above. EKG: See below Assessment and Plan: Syncope - possibly 2/2 seizure like episode - Patient has been worked up for 6 to be April 2021 by her primary care provider - Currently patient is oriented to person, place and time physical does not reveal any focal neurologic deficits - Lab work has been reviewed; Troponin negative but will trend - Imaging noted above - EKG reviewed without any ischemic change - Will check ECHO / EEG / Telemetry monitoring / Troponin trend - Will order PT HTN - BP elevated in the ER - Has not taken AM medications - Will resume Metoprolol - Will hold Chlorthalidone for now IDDM2 - Will start ISS and Levemir at adjusted dosing DLP - c/w Simvastatin Asthma - No evidence of exacerbation - c/w Inhaled therapy as ordered Hypothyroidism - c/w Levothyroxine Osteopenia - Recently completed DEXA scan - c/w Supplementation as an outpatient Vertigo - c/w Meclizine PRN Depression - c/w Sertraline Obesity - BMI of 33.4 - Complicating medical care GERD - c/w Omeprazole / Carafate DVT prophylaxis - Will start Heparin Vital Signs Vital Signs Date Time Temp Pulse Resp B/P (MAP) Pulse Ox O2 Delivery O2 Flow Rate FiO2 06/19/21 13:15 77 160/74 (102) 06/19/21 10:45 97.2 18 96 Room Air Laboratory Data Labs 24H Laboratory Tests 2 06/19/21 10:44: Immature Granulocyte % (Auto) 0.2, Neutrophils (%) (Auto) 58.1, Lymphocytes (%) (Auto) 26.7, Monocytes (%) (Auto) 11.2H, Eosinophils (%) (Auto) 2.7, Basophils (%) (Auto) 1.1H, Neutrophils # (Auto) 3.3, Lymphocytes # (Auto) 1.5, Monocytes # (Auto) 0.6, Eosinophils # (Auto) 0.2, Basophils # (Auto) 0.1, Nucleated Red Blood Cells % (auto) 0.0, Anion Gap 9, Glomerular Filtration Rate > 60.0, Calcium Level 9.0, Magnesium Level 2.1, Thyroid Stimulating Hormone (TSH) 1.160 06/19/21 10:55: Blood Gas Bicarbonate Standard 24.5, Venous Blood pH 7.427, Venous Blood Partial Pressure CO2 37.4L, Venous Blood Partial Pressure O2 73.0H, Venous Blood Total Carbon Dioxide 25.2, Venous Blood HCO3 24.1, Venous Blood Oxygen Saturation 95.2H, Venous Blood Base Excess 0.1 06/19/21 11:12: Bedside Glucose (Misc Panel) 190H, POC Troponin I (Misc) 0.00 CBC/BMP Laboratory Tests 06/19/21 10:44 Home Medications Scheduled Alendronate Sodium (Fosamax) 70 Mg Tab, 70 MG PO 1XWK TAKES ON TUESDAYS Ammonium Lactate (Ammonium Lactate) 12 % Cre, 1 DOSE TOP BID APPLIES TO FEET Aspirin (Aspirin EC) 81 Mg Tabec, 81 MG PO DAILY Calcium Carbonate/Vitamin D3 (Caltrate 600 + D Soft Chew Tab) 1 Chw Chw, 1 CHW PO DAILY Chlorthalidone (Chlorthalidone) 25 Mg Tab, 12.5 MG PO 6XWK TAKES EVERYDAY BUT TUESDAYS Ergocalciferol (Vitamin D2) (Drisdol) 50,000 Unit Cap, 50,000 UNIT PO 1XWK TAKES ON SUNDAYS Insulin Detemir (Levemir Flextouch) 100 Unit/Ml Inj, 42 UNIT SC QAM Insulin Human Lispro (Humalog) 100 Unit/1 Ml Vial, Unknown Dose SC QPM sliding scale before supper Levothyroxine Sodium (Levoxyl) 25 Mcg Tab, 25 MCG PO DAILY Liraglutide (Victoza 2-Ankush) 18 Mg/3 Ml Inj, 1.8 MG SC DAILY Loratadine (Loratadine) 10 Mg Tab, 10 MG PO QPM TAKES IN AFTERNOON Meclizine HCl (Meclizine HCl) 25 Mg Tab, 25 MG PO BID Metoprolol Tartrate (Metoprolol Tartrate) 25 Mg Tab, 25 MG PO BID Naproxen (Naprosyn) 500 Mg Tablet, 1 TAB PO BID for pain Omeprazole (Omeprazole) 40 Mg Cap, 40 MG PO BID Sertraline Hcl (Zoloft) 100 Mg Tab, 200 MG PO DAILY Simvastatin (Simvastatin) 20 Mg Tab, 20 MG PO QHS Sucralfate (Carafate) 1 Gm Tablet, 1 GM PO ACHS 4 times per day on an empty stomach 1 hour before meals and at bedtime Scheduled PRN Albuterol Sulf (Albuterol Sulfate) 2.5 Mg/3 Ml Vial.neb, 1 VIAL NEB Q4HP PRN for wheezing Albuterol Sulfate (Proair Hfa) 108 Mcg/Act Aer, 2 PUFF INH QID PRN for SHORTNESS OF BREATH Miscellaneous Medications Potassium Chloride (Potassium Chloride) 10 Meq Capsule.er Allergies Coded Allergies: lisinopril (Verified Adverse Reaction, Mild, COUGHING, 01/23/20) ROCIO MERCADO MD Jun 19, 2021 13:58
[2021-06-19] MEDS ORDERED: ERGO500029 PO (14:07)
[2021-06-19] MEDS ORDERED: ALBU83IN NEB (14:07)
[2021-06-19] MEDS ORDERED: INSUHUMDS SC (14:11)
[2021-06-19] MEDS ORDERED: SUCR1TA PO (14:20)
[2021-06-19] MEDS ORDERED: ACET500T15 PO (14:20)
[2021-06-19] MEDS ORDERED: ATOR1TAB21 PO (14:20)
[2021-06-19] MEDS ORDERED: TIZA4TAB4 PO (14:20)
[2021-06-19] MEDS ORDERED: FLON27.5 NARES (14:20)
[2021-06-19] MEDS ORDERED: PRESCAP PO (14:20)
[2021-06-19] MEDS ORDERED: HOME MED LIST COMPLETE! XX SCH (14:25)
[2021-06-19] MEDS ORDERED: ALBUTEROL SULFATE 2.5 MG/0.5 ML INH NEB SOLN NEB PRN (15:15)
[2021-06-19] MEDS ORDERED: MECLIZINE 25 MG TABLET PO PRN (15:15)
[2021-06-19] MEDS ORDERED: ALBUTEROL 90 MCG/ACT 8GM HFA INHALER INH PRN (15:15)
[2021-06-19] MEDS ORDERED: PILL CUTTER 1 EACH XX PRN (15:45)
[2021-06-19] MEDS: ASPIRIN 81MG ENTERIC TABLET PO SCH (16:26)
[2021-06-19] MEDS: SUCRALFATE 1 GM TAB PO SCH (16:27)
[2021-06-19] MEDS: DOCUSATE SODIUM 100MG CAPSULE PO SCH ×2 (16:27→20:52)
[2021-06-19] MEDS: ATORVASTATIN 20 MG TAB PO SCH (16:27)
[2021-06-19] MEDS: SERTRALINE 100 MG TAB PO SCH (16:28)
[2021-06-19] MEDS: tiZANidine 4 MG TAB PO SCH ×2 (16:28→20:52)
[2021-06-19] MEDS: HEPARIN SOD (PORCINE) 5000UNITS/ML 1ML VIAL/SYRINGE SC SCH ×2 (16:28→20:53)
[2021-06-19] MEDS ORDERED: amLODIPine 5 MG TAB PO ONE (16:30)
[2021-06-19 16:45] LABS: RSV AMPLIFICATION NEGATIVE (NEGATIVE)
[2021-06-19] MEDS: HumaLOG INSULIN (NovoLOG) PER UNIT SC SCH (17:30)
[2021-06-19 18:21] LABS: CK-MB VALUE MASS < 1.0 NG/ML (<3.6); CPK CREATINE PHOSPHOKINASE 61 U/L (26-192); MB/CK RELATIVE INDEX 1.64 (< OR =4); TROPONIN I < 0.02 NG/ML (< 0.10)
[2021-06-19 19:15] VITALS: BP 135/65
[2021-06-19 20:00] VITALS: BP 135/65
--- NOTE | 2021-06-19 20:47 | ECHO ---
ECHOCARDIOGRAM DATE OF PROCEDURE: 06/19/2021 Age: Gender: Female Height: 157 cm Weight: 83 kg REFERRING PHYSICIAN: Soraya Waterman M.D. INDICATION: Syncope. MEASUREMENTS: IVS 1.2 cm LV 3.5 cm LVPW 1.2 cm LA 1.2 cm Aorta 3.0 cm Ascending aorta 3.7 Mitral E wave velocity 65 A wave 78 E prime septal 5.9 E prime lateral 8.4 FINDINGS: This study is of very limited technical quality. Parasternal views were fair at best. Apical views were very poor and subcostal views were nonexistent. Patient is in sinus rhythm. Left ventricle is normal size. Mild left ventricular hypertrophy is noted. Probably normal left ventricular (LV) systolic function is present, but I cannot rule out wall motion abnormality with any degree of certainty. Right ventricle was poorly visualized, but grossly appears normal. Both atria also appear normal. Aortic valve is mildly sclerotic, but it was poorly visualized and I cannot comment on details of its anatomy. Mitral valve appears normal. Tricuspid valve was not well visualized. The pulmonic valve was also poorly seen. Very prominent pericardial fat pad is noted. No pericardial effusion, though. Inferior vena cava was not visualized. Aortic root is normal. Visualized segment of ascending aorta is borderline dilated. Aortic arch appears nemesio. Abdominal aorta was not seen. Doppler interrogation reveals competent aortic and mitral valves. Evaluation of tricuspid and pulmonic valves were not sufficient to make any comments on their function. Mitral inflow pattern and tissue Doppler imaging of mitral annulus revealed grade 1 diastolic dysfunction. CONCLUSIONS: 1. Study was of very limited technical quality. The patient is in sinus rhythm. 2. Normal left ventricular (LV) size with mild left ventricular hypertrophy (LVH) and probably normal LV systolic function. Grade 1 diastolic dysfunction. 3. No significant aortic and mitral valvular disease. 4. Right-sided chambers and valves were poorly visualized. 5. Prominent pericardial fat pad. 6. Unable to estimate central venous pressure and pulmonary artery pressure. 7. Borderline dilated ascending aorta (3.7 cm). MTDD
[2021-06-19] MEDS: OCUVITE 1 TAB PO SCH (20:52)
[2021-06-19] MEDS: LEVEMIR (INSULIN DETEMIR) 1 UNITS/0.01ML SC SCH (20:53)
[2021-06-19] MEDS ORDERED: OMEPRAZOLE 20 MG CAP PO SCH (21:00)
[2021-06-19] MEDS ORDERED: HumaLOG INSULIN (NovoLOG) PER UNIT SC SCH (21:00)
[2021-06-19 21:45] LABS: CK-MB VALUE MASS 1.5 NG/ML (<3.6); CPK CREATINE PHOSPHOKINASE 62 U/L (26-192); MB/CK RELATIVE INDEX 2.42 (< OR =4); TROPONIN I < 0.02 NG/ML (< 0.10)
--- NOTE | 2021-06-19 21:46 | REPVR ---
PROCEDURE INFORMATION: Exam: MR Head Without Contrast Exam date and time: 06/19/2021 3:14 PM Age: 70 years old Clinical indication: Syncope and collapse TECHNIQUE: Imaging protocol: MR of the head without contrast. COMPARISON: CT Head without contrast 06/19/2021 12:16 PM FINDINGS: Brain: Moderate nonspecific T2/FLAIR hyperintensities of the periventricular and deep subcortical white matter, most likely secondary to chronic small vessel ischemic change. No intracranial hemorrhage or extra-axial fluid collection. No evidence of mass effect or midline shift. No restricted diffusion to suggest acute infarct. Cerebral ventricles: Mild prominence of the ventricles and sulci, likely attributed to parenchymal volume loss. Bones/joints: Unremarkable. Paranasal sinuses: Normal as visualized. No acute sinusitis. Mastoid air cells: No mastoid effusion. Orbital cavity: Unremarkable. Soft tissues: Unremarkable. IMPRESSION: 1. No acute intracranial pathology. 2. Chronic findings, as above. Electronically signed by: Rodney Hall On 06/19/2021 21:45:25 PM
[2021-06-20] VITALS: BP_SYST 104; BP_SYST 118; BP_DIAS 49; BP_DIAS 60
[2021-06-20 04:00] VITALS: BP 106/63
[2021-06-20 05:36] LABS: BASO # 0.1 10^3/uL (0.0-0.2); BASO % 0.8 % (0.0-1.0); EOS # 0.2 10^3/uL (0.0-0.5); EOS % 2.7 % (0.0-3.0); HEMATOCRIT 40.7 % (36.0-47.0); HEMOGLOBIN 13.4 g/dl (12.0-15.5); LYMPH % 32.3 % (24.0-44.0); MEAN CORPUSCULAR HEMOGLOBIN 26.6 pg (27.0-33.0); MEAN CORPUSCULAR HGB CONC 32.9 g/dl (32.0-36.5); MEAN CORPUSCULAR VOLUME 80.9 fl (80.0-96.0); MONO # 0.7 10^3/uL (0.0-0.8); MONO % 10.6 % (2.0-8.0); NEUTROPHILS # 3.4 10^3/uL (1.5-8.5); NEUTROPHILS % 53.3 % (36.0-66.0); PLATELET COUNT, AUTOMATED 144 10^3/uL (150-450); RED BLOOD COUNT 5.03 10^6/uL (4.00-5.40); WHITE BLOOD COUNT 6.3 10^3/uL (4.0-10.0)
[2021-06-20] MEDS ORDERED: LEVOTHYROXINE 25MCG TABLET (0.025MG) PO SCH (06:00)
[2021-06-20 06:01] LABS: BLOOD UREA NITROGEN 15 MG/DL (7-18); CALCIUM LEVEL 8.7 MG/DL (8.8-10.2); CARBON DIOXIDE LEVEL 27 MEQ/L (21-32); CHLORIDE LEVEL 109 MEQ/L (98-107); CREATININE FOR GFR 0.94 MG/DL (0.55-1.30); GLOMERULAR FILTRATION RATE > 60.0 (>39); GLUCOSE, FASTING 158 MG/DL (70-100); MAGNESIUM LEVEL 2.2 MG/DL (1.8-2.4); POTASSIUM SERUM 3.8 MEQ/L (3.5-5.1); SODIUM LEVEL 141 MEQ/L (136-145)
[2021-06-20] MEDS: HEPARIN SOD (PORCINE) 5000UNITS/ML 1ML VIAL/SYRINGE SC SCH ×2 (06:11→14:00)
--- NOTE | 2021-06-20 06:29 | ECGEPIP ---
[facility] - ED Test Date: 2021-06-19 Pat Name: ELIO TALAVERA Department: Room: - Gender: Female Improvement Analyst: LR : 1950 Requested By: Bhavana Street Order Number: [id number] Reading MD: Fidel Mary Measurements Intervals [place] Rate: 80 P: 48 NH: 166 QRS: 33 QRSD: 82 T: 17 QT: 404 QTc: 465 Interpretive Statements Normal sinus rhythm Nonspecific ST abnormality SIMILAR TO 01/23/20 Electronically Signed on 06-20-2021 6:29:37 EDT by Fidel Mary
[2021-06-20 08:00] VITALS: BP 145/65
[2021-06-20] MEDS: ASPIRIN 81MG ENTERIC TABLET PO SCH (08:22)
[2021-06-20] MEDS: HumaLOG INSULIN (NovoLOG) PER UNIT SC SCH ×2 (08:22→12:45)
[2021-06-20] MEDS: OCUVITE 1 TAB PO SCH (08:22)
[2021-06-20 08:23] VITALS: BP 122/63
[2021-06-20] MEDS: SUCRALFATE 1 GM TAB PO SCH (08:23)
[2021-06-20] MEDS: ATORVASTATIN 20 MG TAB PO SCH (08:23)
[2021-06-20] MEDS: tiZANidine 4 MG TAB PO SCH (08:23)
[2021-06-20] MEDS: SERTRALINE 100 MG TAB PO SCH (08:23)
[2021-06-20] MEDS: DOCUSATE SODIUM 100MG CAPSULE PO SCH (08:23)
[2021-06-20] MEDS: LEVEMIR (INSULIN DETEMIR) 1 UNITS/0.01ML SC SCH (08:24)
[2021-06-20] MEDS ORDERED: FLUTICASONE PROP 0.05% NASAL SPRAY 16 GM (FLONASE) NARES SCH (09:00)
[2021-06-20] MEDS ORDERED: amLODIPine 5 MG TAB PO SCH (09:00)
[2021-06-20] MEDS ORDERED: TIZA1TAB12 PO (10:33)
[2021-06-20] MEDS ORDERED: LEVE1INJ5 SC (10:33)
[2021-06-20] MEDS ORDERED: AMLO25TA PO (10:33)
[2021-06-20 12:00] VITALS: BP 115/56
--- NOTE | 2021-06-20 15:11 | DS.PDOC ---
Discharge Summary General Date of Admission Jun 19, 2021 at 10:32 Date of Discharge 06/20/2021 Discharge Summary PROCEDURES PERFORMED DURING STAY: [None]. ADMITTING DIAGNOSES / DISCHARGE DIAGNOSES: Syncope - possibly 2/2 medications, less likely 2/2 seizure like episode HTN IDDM2 DLP Asthma Hypothyroidism Osteopenia Vertigo Depression Obesity GERD DVT prophylaxis COMPLICATIONS/CHIEF COMPLAINT: Syncope. HISTORY OF PRESENT ILLNESS: Patient is a 70-year-old female with a PMHx of HTN, IDDM2, DLP, Asthma, Hypothyroidism, Osteopenia, Obesity, GERD who presented to the ER after she was found on the ground this morning. On 06/18 evening, patient reported that she was eating and almost choked but was able to cough up her food. She went to bed that evening. This next morning she woke on the ground of her living room. When she woke up on the ground, she reports that the only thing she remembers is opening her eyes and being surrounded by EMS staff. Patient was admitted to the hospitalist service for further evaluation / management of syncope. Patient was seen and examined at the bedside. Denies any CP, SOB, palpitations, N/V, abdominal pain, constipation or diarrhea. Denies any urinary discomfort. HOSPITAL COURSE: Syncope - possibly 2/2 medications, less likely 2/2 seizure like episode - No further syncopal episodes noted - AAOx3, No focal deficits - Troponin trend negative - Imaging noted above - EKG reviewed without any ischemic change - ECHO noted below - EEG completed; will have outpatient follow up - Cleared PT for DC home - Dose of tizanidine reduced by 50% - Patient has been advised to abstain from any driving or operating any motor vehicles - Will have outpatient follow-up with primary care provider within the next 7 days HTN - BP elevated in the ER - Not on any BP medications at home - Improved with Amlodipine - c/w Amlodipine IDDM2 - c/w ISS and Levemir at adjusted dosing - Will c/w Adjust frequency of Levemir DLP - c/w Simvastatin Asthma - No evidence of exacerbation - c/w Inhaled therapy as ordered Hypothyroidism - c/w Levothyroxine Osteopenia - Recently completed DEXA scan - c/w Supplementation as an outpatient Vertigo - c/w Meclizine PRN Depression - c/w Sertraline Obesity - BMI of 33.4 - Complicating medical care GERD - c/w Omeprazole / Carafate DVT prophylaxis - c/w Heparin DISCHARGE MEDICATIONS: Please see below. ALLERGIES: Please see below. PHYSICAL EXAMINATION ON DISCHARGE: Vitals (See below) General: Lying in bed, appears to be comfortable, awake / alert, oriented x3 HEENT: NC, AT CVS: +S1S2 Lungs: Fair air entry b/l, no wheezing / rhonchi / rales Abdomen: Soft, non-distended, non-trended Extremities: No evidence of edema LABORATORY DATA: Please see below. IMAGING: CT Cervical spine 06/19: No acute abnormality. Chronic changes as described above. CXR 06/19: No active process. No change since the previous study. CT Head 06/19: No significant change compared to the prior exam. Stable appearing chronic changes without evidence of acute intracranial pathology. 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 Lumbar Spine XR 06/19: Chronic changes as described above. ECHO 06/20: 1. Study was of very limited technical quality. The patient is in sinus rhythm. 2. Normal left ventricular (LV) size with mild left ventricular hypertrophy (LVH) and probably normal LV systolic function. Grade 1 diastolic dysfunction. 3. No significant aortic and mitral valvular disease. 4. Right-sided chambers and valves were poorly visualized. 5. Prominent pericardial fat pad. 6. Unable to estimate central venous pressure and pulmonary artery pressure. 7. Borderline dilated ascending aorta (3.7 cm). ACTIVITY: [As tolerated]. DISCHARGE PLAN: Follow up with PCP within 7 days Remain compliant with treatment plan and medications Return to the ER if you experience any problems DISPOSITION: Home with services DISCHARGE CONDITION: [Stable]. TIME SPENT ON DISCHARGE: 35 minutes Vital Signs/I&Os Vital Signs Date Time Temp Pulse Resp B/P (MAP) Pulse Ox O2 Delivery O2 Flow Rate FiO2 06/20/21 08:23 69 122/63 06/20/21 08:00 97.0 18 95 Room Air I&O- Last 24 Hours up to 6 AM 06/20/21 06:00 Intake Total 0 ml Balance 0 ml Laboratory Data Labs 24H Laboratory Tests 2 06/19/21 15:56: Coronavirus (COVID-19)(PCR) NEGATIVE, Influenza Type A (RT-PCR) NEGATIVE, Influenza Type B (RT-PCR) NEGATIVE, Respiratory Syncytial Virus (PCR) NEGATIVE 06/19/21 17:33: Total Creatine Kinase 61, Creatine Kinase MB < 1.0, Creatine Kinase MB Relative Index 1.64, Troponin I < 0.02, Procalcitonin <0.05, Prolactin 3.8 06/19/21 19:48: Bedside Glucose (Misc Panel) 154H 06/19/21 21:02: Total Creatine Kinase 62, Creatine Kinase MB 1.5, Creatine Kinase MB Relative Index 2.42, Troponin I < 0.02 06/20/21 05:16: Immature Granulocyte % (Auto) 0.3, Neutrophils (%) (Auto) 53.3, Lymphocytes (%) (Auto) 32.3, Monocytes (%) (Auto) 10.6H, Eosinophils (%) (Auto) 2.7, Basophils (%) (Auto) 0.8, Neutrophils # (Auto) 3.4, Lymphocytes # (Auto) 2.0, Monocytes # (Auto) 0.7, Eosinophils # (Auto) 0.2, Basophils # (Auto) 0.1, Nucleated Red Blood Cells % (auto) 0.0, Anion Gap 5L, Glomerular Filtration Rate > 60.0, Calcium Level 8.7L, Magnesium Level 2.2 06/20/21 11:34: Bedside Glucose (Misc Panel) 240H CBC/BMP Laboratory Tests 06/20/21 05:16 FSBS Laboratory Tests Test 06/19/21 19:48 06/20/21 11:34 Range/Units Bedside Glucose (Misc Panel) 154 240 83-110 MG/DL Discharge Medications Scheduled Alendronate Sodium (Fosamax) 70 Mg Tab, 70 MG PO QWEEK, (Reported) TAKES ON TUESDAYS Amlodipine Besylate (Amlodipine Besylate) 2.5 Mg Tablet, 2.5 MG PO DAILY Ammonium Lactate (Ammonium Lactate) 12 % Cre, 1 APPLIC TOP BID, (Reported) APPLIES TO BOTH FEET Aspirin (Aspirin EC) 81 Mg Tabec, 81 MG PO DAILY, (Reported) Atorvastatin Calcium (Atorvastatin Calcium) 20 Mg Tablet, 20 MG PO DAILY, (Reported) Ergocalciferol (Vitamin D2) (Vitamin D2) 50,000 Units Cap, 50,000 UNITS PO QWEEK, (Reported) SUNDAYS Fluticasone Furoate (Flonase Sensimist) 5.9 Ml [place].susp, 1 SPRAY NARES DAILY, (Reported) Insulin Detemir (Levemir Flextouch) 100 Unit/Ml Inj, 22 UNIT SC BID Vial=pen 1 month supply Insulin Human Lispro (Humalog) 100 Unit/1 Ml Vial, 6 UNITS SC QPM, (Reported) BEFORE LUNCH Insulin Human Lispro (Humalog) 100 Unit/1 Ml Vial, 12 UNITS SC ACS, (Reported) Levothyroxine Sodium (Levoxyl) 25 Mcg Tab, 25 MCG PO DAILY, (Reported) Liraglutide (Victoza 2-Ankush) 18 Mg/3 Ml Inj, 1.8 MG SC DAILY, (Reported) Loratadine (Loratadine) 10 Mg Tab, 10 MG PO QHS, (Reported) Metoprolol Tartrate (Metoprolol Tartrate) 25 Mg Tab, 25 MG PO BID, (Reported) Omeprazole (Omeprazole) 40 Mg Cap, 40 MG PO QPM, (Reported) Potassium Chloride (Potassium Chloride) 10 Meq Capsule.er, 30 MEQ PO QHS, (Reported) Sertraline Hcl (Zoloft) 100 Mg Tab, 200 MG PO DAILY, (Reported) Sucralfate (Sucralfate) 1 Gm Tablet, 1 GM PO DAILY, (Reported) Tizanidine HCl (Tizanidine HCl) 2 Mg Tablet, 1 TAB PO TID Vit A/Vit C/Vit E/Zinc/Copper (Preservision Areds Softgel) 1 Each Capsule, 1 CAP PO BID, (Reported) Scheduled PRN Acetaminophen (Acetaminophen) 500 Mg Tablet, 1,000 MG PO Q8H PRN for PAIN LEVEL 1-4, (Reported) Albuterol Sulf (Albuterol Sulfate) 2.5 Mg/3 Ml Vial.neb, 2.5 MG NEB Q4H PRN for WHEEZING, (Reported) Albuterol Sulfate (Proair Hfa) 108 Mcg/Act Aer, 2 PUFF INH QID PRN for SHORTNESS OF BREATH, (Reported) Meclizine HCl (Meclizine HCl) 25 Mg Tab, 25 MG PO Q8H PRN for DIZZINESS, (Reported) Allergies Coded Allergies: lisinopril (Verified Adverse Reaction, Mild, COUGHING, 01/23/20) ROCIO MERCADO MD Jun 20, 2021 15:11
--- NOTE | 2021-06-21 10:07 | EEG ---
ELECTROENCEPHALOGRAM DATE: 06/20/2021 REFERRING PHYSICIAN: ROCIO MERCADO MD DIAGNOSIS: Concern for seizure. EEG#: [id number] HISTORY: The patient is a 70-year-old woman with a history of diabetes, asthma who presented to [facility] after she was found on the ground. The patient used her Life alert. She was found laying on her left arm. This EEG was done to rule out epileptic potential. She is currently atorvastatin, levothyroxine, omeprazole, amlodipine, tizanidine, aspirin, Zoloft, etc. TECHNICAL DESCRIPTION: This digital electroencephalogram (EEG) was recorded by 21 scalp, ear, and two electrocardiogram (EKG) electrodes and was reviewed in bipolar and referential montages following reformatting in 10-20 international electrode placement system. INTERPRETATION: The patient was noted to be in awake and drowsy states during this EEG. Resting and awake background rhythm consisted of 9 Hz alpha activity measuring 15-40 microvolts in amplitude which was symmetric and reactive to eye opening. Attenuation of posterior dominant rhythm was seen during transition to drowsiness. No sleep was achieved. Hyperventilation was not performed. Photic stimulation remained unremarkable. EKG revealed normal sinus rhythm. No focal, lateralizing, or epileptiform abnormalities were seen. No relevant clinical activity was noted. CONCLUSION: This EEG in awake, drowsy states is within normal limits. [facility]
== END 2021-06-20 15:55 | disposition home health service (06) ==
LOC: EDBD 10:31 → M ED 10:31 → M ED INP 10:32 → ENRESERV 17:15 → M PCU 19:14
PROVIDERS: ADMIT Internal Medicine; ATTEND Internal Medicine
DX: R55 Syncope and collapse (principal); I10 Essential (primary) hypertension; E11.9 Type 2 diabetes mellitus without complications; E78.49 Other hyperlipidemia; E03.9 Hypothyroidism, unspecified; J45.909 Unspecified asthma, uncomplicated; M85.89 Other specified disorders of bone density and structure, multiple sites; H81.319 Aural vertigo, unspecified ear; F32.9 Major depressive disorder, single episode, unspecified; E66.9 Obesity, unspecified; K21.9 Gastro-esophageal reflux disease without esophagitis; Z79.82 Long term (current) use of aspirin; Z79.899 Other long term (current) drug therapy; Z79.4 Long term (current) use of insulin; Z88.8 Allergy status to other drugs, medicaments and biological substances
CPT/HCPCS: 36415; 70450; 70551; 71045; 72110; 72125; 80048; 82550; 82553; 82803; 83735; 84145; 84146; 84443; 84484; 85025; 87631; 93005; 93041; 93306; 95819; 97116; 97161; 99285; G0378; J1644

== ENCOUNTER → 2021-06-24 | Outpatient (CLI) | payer MEDICAID, MEDICARE, OTHER ==
[~2021-06-24] MED LIST changes: +ACET500T15 PO; +AMLO25TA PO; +ATOR1TAB21 PO; +ERGO500029 PO; +FLON27.5 NARES; +PRESCAP PO; +SUCR1TA PO; +TIZA1TAB12 PO; +TIZA4TAB4 PO
--- NOTE | 2021-06-24 13:07 | REPMRS ---
Patient History Patient is postmenopausal and has history of endometrial cancer at age 28. Family history of breast cancer at age 50 or over in niece, prostate cancer under age 50 in son. Benign stereotatic breast biopsy of the right breast, October 21, 2012. No Hormone Replacement Therapy Patient states no breast complaints today. Patient has signed MRS History Sheet. Digital Woman Screen Mammo: June 24, 2021 - Exam #: [id number] Bilateral CC and MLO view(s) were taken. Technologist: Beatriz Aguilera, Technologist Prior study comparison: June 14, 2020, bilateral digital woman screen mammo performed at [facility]. March 03, 2019, bilateral digital woman screen mammo performed at [facility]. FINDINGS: There are scattered fibroglandular densities. Screening. Digital screening (2D) mammography was performed bilaterally in the CC and MLO projections. Additionally, breast tomosynthesis (3D mammography) was performed bilaterally in the CC and MLO projections. Todays exam was compared to the prior exam/exams. By history, the patient has no complaints of a palpable breast abnormality or other significant breast complaints. The breasts are unchanged in size and shape. There are no raf-soft tissue densities or spiculated masses. There is no internal architectural distortion. Once again, stable benign appearing calcifications are seen.There are no suspicious raf-calcific clusters. Skin thickening or nipple retraction is not present. IMPRESSION: BI-RADS Category 2- Benign Findings. There is no evidence of malignant alteration of the breasts. Followup examination recommended in one year. The Volpara volumetric breast density category is B, there are scattered areas of fibroglandular densities. This mammogram was read with the assistance of [employer],an FDA approved computer aided detection system for mammography. The lifetime Tyrer-Cuzick score is 2.3 % Negative x-ray reports should not delay surgical consultation if a dominant or clinically suspicious mass is present. Not all breast cancers can be identified by mammography. Therefore, we recommend that you continue to perform regular breast self-examination and physical examination and then promptly contact your physician of any concerns or changes. Adenosis and dense breasts may obscure an underlying neoplasm. Assessment: BI-RADS/ACR category 2 mammogram. Benign Findings. Recommendation Routine screening mammogram of both breasts in 1 year. Electronically Signed By: Errol Isbell DO 06/24/21 [id number]
== END ==
LOC: M WHC 12:02
PROVIDERS: ATTEND Nurse Practitioner Family
DX: Z12.31 Encounter for screening mammogram for malignant neoplasm of breast (principal)

== ENCOUNTER → 2021-07-05 | Outpatient (CLI) | payer MEDICARE, MEDICAID | LOC: M PT 11:11 | PROVIDERS: ATTEND Nurse Practitioner Family | DX: R26.89 Other abnormalities of gait and mobility (principal) ==

== ENCOUNTER → 2021-07-29 | Outpatient (REF) | payer MEDICARE, MEDICAID | LOC: M LAB REF 19:22 | PROVIDERS: ATTEND Physician Assistant | DX: L57.0 Actinic keratosis (principal) | CPT/HCPCS: 11102; 88305; G0463 ==

== ENCOUNTER → 2021-10-07 | Outpatient (CLI) | payer MEDICARE, MEDICAID ==
[2021-10-07 11:28] LABS: CREATININE FOR GFR 1.25 MG/DL (0.55-1.30)
[2021-10-07 11:29] LABS: ALBUMIN 3.8 GM/DL (3.2-5.2); CALCIUM LEVEL 9.3 MG/DL (8.8-10.2); GLOMERULAR FILTRATION RATE 44.8 (>39); PHOSPHORUS LEVEL 4.7 MG/DL (2.5-4.9); POTASSIUM SERUM 4.2 MEQ/L (3.5-5.1)
== END ==
LOC: M PLALAB 09:06
PROVIDERS: ATTEND Internal Medicine Cardiovascular Disease
DX: I11.9 Hypertensive heart disease without heart failure (principal); R06.02 Shortness of breath; F41.1 Generalized anxiety disorder; F32.9 Major depressive disorder, single episode, unspecified; F51.01 Primary insomnia; Z68.34 Body mass index [BMI] 34.0-34.9, adult

== ENCOUNTER → 2021-12-11 | Outpatient (REF) | payer MEDICARE, OTHER, MEDICAID ==
[~2021-12-11] MED LIST changes: +POTA-149 PO; -POTA10TA16 PO; +TIZA10TA PO; -TIZA4TAB4 PO
== END ==
LOC: M LAB REF 17:25
PROVIDERS: ATTEND Physician Assistant
DX: D22.39 Melanocytic nevi of other parts of face (principal)

== ENCOUNTER 2022-03-27 09:43 | Emergency (ER) | payer MEDICARE, MEDICAID ==
[~2022-03-27] VITALS: Ht 157.5 cm; Wt 86.4 kg
[2022-03-27] MEDS ORDERED: ACETAMINOPHEN 500 MG TAB PO ONE (10:00)
[2022-03-27] MEDS ORDERED: NIRMATRELVIR/RITONAVIR (RENAL) CO-PACK (EUA) PO SCH ×2 (11:30→21:00)
[2022-03-27 12:05] VITALS: BP 125/60
== END 2022-03-27 13:32 | disposition home or self-care (01) ==
LOC: M ED 09:43
DX: U07.1 COVID-19 (principal); E11.9 Type 2 diabetes mellitus without complications; I10 Essential (primary) hypertension; J45.909 Unspecified asthma, uncomplicated; E66.9 Obesity, unspecified; Z87.891 Personal history of nicotine dependence; Z79.4 Long term (current) use of insulin; Z79.82 Long term (current) use of aspirin; Z79.899 Other long term (current) drug therapy; Z88.8 Allergy status to other drugs, medicaments and biological substances

== ENCOUNTER → 2022-06-30 | Outpatient (CLI) | payer MEDICAID, MEDICARE, OTHER ==
[~2022-06-30] MED LIST changes: +ALBU2.5V10 NEB; -ALBU83IN NEB
== END ==
LOC: M RAD 11:51
PROVIDERS: ATTEND Internal Medicine
DX: N83.299 Other ovarian cyst, unspecified side (principal); Z90.710 Acquired absence of both cervix and uterus

== ENCOUNTER → 2022-07-02 | Outpatient (CLI) | payer MEDICAID, MEDICARE, OTHER | LOC: M WHC 10:46 | PROVIDERS: ATTEND Internal Medicine | DX: Z12.31 Encounter for screening mammogram for malignant neoplasm of breast (principal) ==

== ENCOUNTER → 2022-12-11 | Outpatient (CLI) | payer MEDICARE, MEDICAID ==
[~2022-12-11] MED LIST changes: +ALEN70TA87 PO; +E-Z-GAS II EFFERVESCENT PACKET (SODIUM BICARB./CITRIC ACID/SIMETHICONE) As Ordered ONE; +E-Z-HD 98% w/w 340GM SUSP BTL As Ordered ONE; +E-Z-PAQUE 96% w/w SUSP 176GM BTL As Ordered ONE; -FOSA70TA PO; -POTA10CA32 PO; +POTA10CA33 PO
== END ==
LOC: M RAD 08:51
PROVIDERS: ATTEND Internal Medicine
DX: K22.4 Dyskinesia of esophagus (principal); K22.89 Other specified disease of esophagus

== ENCOUNTER → 2023-01-20 | Outpatient (CLI) | payer MEDICARE, MEDICAID ==
[~2023-01-20] MED LIST changes: -E-Z-GAS II EFFERVESCENT PACKET (SODIUM BICARB./CITRIC ACID/SIMETHICONE) As Ordered ONE; -E-Z-HD 98% w/w 340GM SUSP BTL As Ordered ONE; -E-Z-PAQUE 96% w/w SUSP 176GM BTL As Ordered ONE; +INSU100I6 SC; -LEVE1INJ5 SC
== END ==
LOC: M RAD 09:39
PROVIDERS: ATTEND Psychiatry & Neurology Neurology
DX: I67.1 Cerebral aneurysm, nonruptured (principal)

== ENCOUNTER → 2023-01-27 | Outpatient (REF) | payer MEDICARE, MEDICAID | LOC: M LAB REF 14:41 | PROVIDERS: ATTEND Internal Medicine | DX: K30 Functional dyspepsia (principal) ==

== ENCOUNTER → 2023-07-06 | Outpatient (CLI) | payer MEDICARE, MEDICAID ==
[~2023-07-06] MED LIST changes: +FLUT50SP17; -FLUTISP; -POTA10CA33 PO; +POTA10CA60 PO
== END ==
LOC: M WHC 12:40
PROVIDERS: ATTEND Internal Medicine
DX: Z12.31 Encounter for screening mammogram for malignant neoplasm of breast (principal); Z13.820 Encounter for screening for osteoporosis; M85.89 Other specified disorders of bone density and structure, multiple sites

== ENCOUNTER → 2023-08-10 | Outpatient (REF) | payer MEDICARE, MEDICAID ==
[~2023-08-10] MED LIST changes: +ALPR0.5T3 PO; +CARV6.25 PO; +INSUDET SC; +LOSA50TA28 PO; +PROA1AER2 INH; +TIRZ7.5P SQ; +VITMTA PO
== END ==
LOC: M SFHCDERM 14:15
PROVIDERS: ATTEND Physician Assistant
DX: D22.4 Melanocytic nevi of scalp and neck (principal)

== ENCOUNTER 2023-08-26 08:06 | Day surgery (SDC) | payer MEDICARE, MEDICAID ==
[~2023-08-26] VITALS: Ht 157.5 cm; Wt 82.7 kg
[~2023-08-26 08:06] MED LIST changes: +NS 1,000 ML IV ONE
[2023-08-26] MEDS ORDERED: LIDOCAINE 2% 100MG/5ML SDV (FOR ANES.) As Ordered ONE (08:33)
[2023-08-26] MEDS ORDERED: propofoL 200 MG/20 ML VIAL As Ordered ONE (08:33)
[2023-08-26] MEDS ORDERED: fentaNYL 100 MCG/2 ML INJECTION As Ordered ONE (08:33)
[2023-08-26 08:40] VITALS: TEMP 97.5
[2023-08-26 10:14] VITALS: BP 166/77; O2SAT 94
== END 2023-08-26 10:14 | disposition home or self-care (01) ==
LOC: M OPP 08:06
PROVIDERS: ATTEND Internal Medicine Gastroenterology
DX: T18.2XXA Foreign body in stomach, initial encounter (principal); Y92.9 Unspecified place or not applicable; Z53.8 Procedure and treatment not carried out for other reasons; R13.10 Dysphagia, unspecified; E11.9 Type 2 diabetes mellitus without complications; G47.30 Sleep apnea, unspecified; Z86.79 Personal history of other diseases of the circulatory system; Z79.02 Long term (current) use of antithrombotics/antiplatelets; Z79.1 Long term (current) use of non-steroidal anti-inflammatories (NSAID); Z79.3 Long term (current) use of hormonal contraceptives; Z79.52 Long term (current) use of systemic steroids; Z79.82 Long term (current) use of aspirin; Z79.83 Long term (current) use of bisphosphonates; Z79.890 Hormone replacement therapy; Z79.899 Other long term (current) drug therapy; Z88.8 Allergy status to other drugs, medicaments and biological substances
CPT/HCPCS: 43235; J3010

== ENCOUNTER → 2023-12-18 | Outpatient (CLI) | payer MEDICAID, MEDICARE, OTHER ==
[~2023-12-18] MED LIST changes: -FLUT50SP17; +FLUTISP; -NS 1,000 ML IV ONE
== END ==
LOC: M RAD 09:24
PROVIDERS: ATTEND Physician Assistant Medical
DX: R06.02 Shortness of breath (principal)

== ENCOUNTER → 2024-01-20 | Outpatient (REF) | payer MEDICARE, MEDICAID, OTHER | LOC: M LAB REF 12:13 | PROVIDERS: ATTEND Nurse Practitioner Family | DX: N39.0 Urinary tract infection, site not specified (principal); F03.90 Unspecified dementia, unspecified severity, without behavioral disturbance, psychotic disturbance, mood disturbance, and anxiety ==

== ENCOUNTER → 2024-02-17 | Outpatient (REF) | payer MEDICARE, OTHER | LOC: M LAB REF 16:23 | PROVIDERS: ATTEND Internal Medicine | DX: N39.0 Urinary tract infection, site not specified (principal) ==

== ENCOUNTER → 2024-03-29 | Outpatient (CLI) | payer MEDICARE, MEDICAID ==
[~2024-03-29] MED LIST changes: -POTA10CA60 PO; +POTA10CA70 PO
== END ==
LOC: M WHC 09:58
PROVIDERS: ATTEND Internal Medicine
DX: N63.32 Unspecified lump in axillary tail of the left breast (principal); N63.20 Unspecified lump in the left breast, unspecified quadrant; D48.7 Neoplasm of uncertain behavior of other specified sites
CPT/HCPCS: 76882; 77065; G0279

== ENCOUNTER → 2024-04-12 | Outpatient (REF) | payer MEDICARE, MEDICAID | LOC: M LAB REF 15:16 | PROVIDERS: ATTEND Surgery | DX: L72.3 Sebaceous cyst (principal) ==

== ENCOUNTER 2024-04-13 15:10 | Emergency (ER) | payer MEDICARE, MEDICAID ==
[~2024-04-13] VITALS: Ht 157.5 cm; Wt 76.4 kg
[2024-04-13] MEDS ORDERED: ISOVUE-370 76% 100ML VIAL As Ordered ONE (16:39)
[2024-04-13 16:50] LABS: BASO # 0.1 10^3/uL (0.0-0.2); EOS # 0.2 10^3/uL (0.0-0.5); EOS % 2.7 % (0.0-3.0); HEMATOCRIT 39.6 % (36.0-47.0); HEMOGLOBIN 13.1 g/dl (12.0-15.5); LYMPH # 1.8 10^3/uL (1.5-5.0); LYMPH % 28.5 % (24.0-44.0); MEAN CORPUSCULAR HGB CONC 33.1 g/dl (32.0-36.5); MEAN CORPUSCULAR VOLUME 81.5 fl (80.0-96.0); MONO # 0.7 10^3/uL (0.0-0.8); MONO % 11.6 % (2.0-8.0); NEUTROPHILS # 3.5 10^3/uL (1.5-8.5); NEUTROPHILS % 55.9 % (36.0-66.0); PLATELET COUNT, AUTOMATED 150 10^3/uL (150-450); RED BLOOD COUNT 4.86 10^6/uL (4.00-5.40); WHITE BLOOD COUNT 6.2 10^3/uL (4.0-10.0)
[2024-04-13 17:13] LABS: INR 1.07; PARTIAL THROMBOPLASTIN TIME 25.9 SECONDS (24.8-34.2); PROTHROMBIN TIME 13.6 SECONDS (12.5-14.5)
[2024-04-13 17:21] LABS: C REACTIVE PROTEIN QUANTITATIV < 0.40 MG/DL (<1.0)
[2024-04-13 17:22] LABS: ALBUMIN 3.9 G/DL (3.2-5.2); ALKALINE PHOSPHATASE 68 U/L (46-116); ALT/SGPT 26 U/L (7.0-40); AST/SGOT 17 U/L (<34); BILIRUBIN,DIRECT 0.2 MG/DL (<0.4); BILIRUBIN,TOTAL 0.7 MG/DL (0.3-1.2); BLOOD UREA NITROGEN 21 MG/DL (9-23); CARBON DIOXIDE LEVEL 25 MMOL/L (20-31); CHLORIDE LEVEL 107 MMOL/L (98-107); CK-MB VALUE MASS 1.1 NG/ML (<3.6); CREATININE FOR GFR 0.97 MG/DL (0.55-1.30); GLOMERULAR FILTRATION RATE 59.8 (>39); GLUCOSE, FASTING 89 MG/DL (74-106); SODIUM LEVEL 139 MMOL/L (136-145); TOTAL PROTEIN 6.6 G/DL (5.7-8.2)
[2024-04-13 17:28] LABS: CPK CREATINE PHOSPHOKINASE 88 U/L (34-145); MB/CK RELATIVE INDEX 1.25 (< OR =4)
[2024-04-13] MEDS: ALPRAZolam 0.5 MG TAB PO ONE (18:11)
[2024-04-13 18:37] LABS: CK-MB VALUE MASS 1.4 NG/ML (<3.6)
[2024-04-13 18:41] LABS: MB/CK RELATIVE INDEX 1.6 (< OR =4)
[2024-04-13 20:10] VITALS: BP 180/73; TEMP 97.8; O2SAT 95
== END 2024-04-13 20:15 | disposition home or self-care (01) ==
LOC: M ED 15:10
DX: G45.9 Transient cerebral ischemic attack, unspecified (principal); I44.0 Atrioventricular block, first degree; E11.9 Type 2 diabetes mellitus without complications; J45.909 Unspecified asthma, uncomplicated; G47.33 Obstructive sleep apnea (adult) (pediatric); M54.50 Low back pain, unspecified; I10 Essential (primary) hypertension; Z88.8 Allergy status to other drugs, medicaments and biological substances; Z79.52 Long term (current) use of systemic steroids; Z79.02 Long term (current) use of antithrombotics/antiplatelets; Z79.811 Long term (current) use of aromatase inhibitors; Z79.810 Long term (current) use of selective estrogen receptor modulators (SERMs); Z79.899 Other long term (current) drug therapy
CPT/HCPCS: 36415; 70450; 70496; 70498; 70551; 71045; 80047; 80048; 80076; 82550; 82553; 84484; 85025; 85610; 85730; 86140; 93005; 93041; 94760; 99285; G0463; Q9967

== ENCOUNTER 2024-04-22 10:34 | Emergency (ER) | payer MEDICARE, MEDICAID ==
[~2024-04-22] VITALS: Ht 157.5 cm; Wt 72.5 kg
[2024-04-22 12:17] LABS: HEMATOCRIT 42.7 % (36.0-47.0); HEMOGLOBIN 14.3 g/dl (12.0-15.5); MEAN CORPUSCULAR HGB CONC 33.5 g/dl (32.0-36.5); MEAN CORPUSCULAR VOLUME 80.7 fl (80.0-96.0); PLATELET COUNT, AUTOMATED 129 10^3/uL (150-450); RED BLOOD COUNT 5.29 10^6/uL (4.00-5.40); WHITE BLOOD COUNT 8.9 10^3/uL (4.0-10.0)
[2024-04-22 12:25] LABS: ALBUMIN 3.9 G/DL (3.2-5.2); BILIRUBIN,DIRECT 0.4 MG/DL (<0.4); BILIRUBIN,TOTAL 1.2 MG/DL (0.3-1.2); TOTAL PROTEIN 6.8 G/DL (5.7-8.2)
[2024-04-22 12:44] LABS: ATYPICAL LYMPH 3 % (0-5); BASOPHILS 2 % (0-1); LYMPHOCYTES 5 % (16-44); METAMYELOCYTES 1 % (0-0); MONOCYTES 3 % (0-5); NEUTROPHILS 64 % (28-66)
[2024-04-22 12:45] LABS: PLATELET ESTIMATE NORMAL (NORMAL)
[2024-04-22] MEDS ORDERED: ONDANSETRON 4MG 2ML VIAL IV ONE (13:55)
[2024-04-22] MEDS ORDERED: NS 1,000 ML IV ONE (13:55)
[2024-04-22] MEDS: ACETAMINOPHEN 500 MG TAB PO ONE (14:00)
[2024-04-22] MEDS: NS 1,000 ML IV ONE ×2 (14:00→16:18)
[2024-04-22] MEDS ORDERED: ISOVUE-370 76% 100ML VIAL As Ordered ONE (14:06)
[2024-04-22] MEDS: ONDANSETRON 4MG 2ML VIAL IV ONE (14:09)
[2024-04-22 14:15] LABS: PROCALCITONIN 0.14 ng/ml
[2024-04-22] MEDS: PIPERACILLIN/TAZOBACTAM SOD 3.375 GM in D5W MINI-BAG PLUS 50 ML IV ONE (16:18)
[2024-04-22] MEDS ORDERED: AMOX875T PO (17:44)
[2024-04-22 18:05] VITALS: BP 132/62; TEMP 97.2; O2SAT 96
== END 2024-04-22 18:07 | disposition home or self-care (01) ==
LOC: M ED 10:34
DX: K52.9 Noninfective gastroenteritis and colitis, unspecified (principal); E11.9 Type 2 diabetes mellitus without complications; I10 Essential (primary) hypertension; K21.9 Gastro-esophageal reflux disease without esophagitis; J44.9 Chronic obstructive pulmonary disease, unspecified; E78.5 Hyperlipidemia, unspecified; Z86.79 Personal history of other diseases of the circulatory system; J43.9 Emphysema, unspecified; Z85.41 Personal history of malignant neoplasm of cervix uteri; Z86.73 Personal history of transient ischemic attack (TIA), and cerebral infarction without residual deficits; Z79.82 Long term (current) use of aspirin; Z79.4 Long term (current) use of insulin; Z79.899 Other long term (current) drug therapy; Z88.8 Allergy status to other drugs, medicaments and biological substances
CPT/HCPCS: 36415; 74177; 80047; 80076; 81001; 83605; 83690; 84145; 85025; 87086; 96361; 96365; 96366; 99284; J2543; Q9967

== ENCOUNTER 2024-05-21 11:28 | Inpatient (IN) | payer MEDICAID, MEDICARE ==
[~2024-05-21] VITALS: Ht 157.5 cm; Wt 74.0 kg
[~2024-05-21 11:28] MED LIST changes: +AMOX875T PO
[2024-05-21 12:28] LABS: BASO # 0.1 10^3/uL (0.0-0.2); BASO % 1.3 % (0.0-1.0); EOS # 0.2 10^3/uL (0.0-0.5); EOS % 3.4 % (0.0-3.0); HEMATOCRIT 39.5 % (36.0-47.0); HEMOGLOBIN 12.7 g/dl (12.0-15.5); LYMPH # 1.3 10^3/uL (1.5-5.0); LYMPH % 28.2 % (24.0-44.0); MEAN CORPUSCULAR HEMOGLOBIN 26.3 pg (27.0-33.0); MEAN CORPUSCULAR HGB CONC 32.2 g/dl (32.0-36.5); MEAN CORPUSCULAR VOLUME 81.8 fl (80.0-96.0); MONO # 0.5 10^3/uL (0.0-0.8); NEUTROPHILS # 2.7 10^3/uL (1.5-8.5); NEUTROPHILS % 56.7 % (36.0-66.0); PLATELET COUNT, AUTOMATED 135 10^3/uL (150-450); RED BLOOD COUNT 4.83 10^6/uL (4.00-5.40); WHITE BLOOD COUNT 4.7 10^3/uL (4.0-10.0)
[2024-05-21] MEDS: NS 1,000 ML IV SCH (12:34)
[2024-05-21] MEDS ORDERED: ISOVUE-370 76% 100ML VIAL As Ordered ONE (12:45)
[2024-05-21 12:46] LABS: INR 1.15; PARTIAL THROMBOPLASTIN TIME 24.3 SECONDS (24.8-34.2); PROTHROMBIN TIME 14.3 SECONDS (12.5-14.5)
[2024-05-21 12:49] LABS: ALBUMIN 3.8 G/DL (3.2-5.2); BILIRUBIN,DIRECT 0.2 MG/DL (<0.4); BILIRUBIN,TOTAL 0.7 MG/DL (0.3-1.2); CALCIUM LEVEL 8.8 MG/DL (8.3-10.6); CK-MB VALUE MASS 1.1 NG/ML (<3.6); CREATININE FOR GFR 1.1 MG/DL (0.55-1.30); GLOMERULAR FILTRATION RATE 51.7 (>39); MAGNESIUM LEVEL 1.9 MG/DL (1.8-2.4); POTASSIUM SERUM 4.2 MMOL/L (3.5-5.1); TOTAL PROTEIN 6.4 G/DL (5.7-8.2)
[2024-05-21 12:51] LABS: FREE T4 0.89 NG/DL (0.89-1.76)
[2024-05-21 12:52] LABS: THYROID STIMULATING HORMONE 1.745 uIU/ML (0.55-4.78)
[2024-05-21 12:54] LABS: MB/CK RELATIVE INDEX 1.5 (< OR =4)
[2024-05-21 14:05] LABS: CK-MB VALUE MASS 1.2 NG/ML (<3.6)
[2024-05-21 14:14] LABS: MB/CK RELATIVE INDEX 1.66 (< OR =4)
[2024-05-21 15:51] LABS: CK-MB VALUE MASS 1.3 NG/ML (<3.6)
[2024-05-21 15:55] LABS: MB/CK RELATIVE INDEX 1.68 (< OR =4)
[2024-05-21] MEDS ORDERED: ACETAMINOPHEN TAB 650MG DOSE (2X325MG) PO PRN (17:20)
[2024-05-21] MEDS ORDERED: MOM 30ML SUSPENSION UDC PO PRN (17:20)
[2024-05-21] MEDS ORDERED: ALBU8.5H INH (17:31)
[2024-05-21] MEDS ORDERED: TIRZ5PEN SQ (17:31)
[2024-05-21] MEDS ORDERED: GLUCOSE 4 GM CHEW PO PRN (17:55)
[2024-05-21] MEDS ORDERED: GLUCAGON INJ 1MG VIAL SC PRN (17:55)
[2024-05-21] MEDS ORDERED: DEXTROSE 50% 50ML SYRINGE IV PRN (17:55)
[2024-05-21] MEDS ORDERED: MIRT1TAB PO (17:58)
[2024-05-21] MEDS ORDERED: BUPR75TA5 PO (17:58)
[2024-05-21 18:04] LABS: CHOLESTEROL RISK RATIO 4.29 (<5); HDL CHOLESTEROL 31.4 MG/DL (>40); LDL CHOLESTEROL 71.6 MG/DL (<100); NON-HDL-C 103.6 MG/DL
[2024-05-21] MEDS: ASPIRIN 81MG CHEW TABLET PO ONE (18:11)
[2024-05-21 18:16] LABS: HEMOGLOBIN A1c 5.4 % (4.0-6.0)
[2024-05-21] MEDS ORDERED: HOME MED LIST COMPLETE! XX SCH (18:25)
[2024-05-21] MEDS: LORazepam 0.5 MG TAB PO ONE (19:22)
[2024-05-21 20:50] VITALS: BP 166/72; TEMP 97.2; O2SAT 94
[2024-05-21 21:00] VITALS: BP_SYST 166; BP_SYST 174; BP_SYST 180; BP_DIAS 72; BP_DIAS 80; BP_DIAS 82
[2024-05-21] MEDS: INSULIN LISPRO (NovoLOG) PER UNIT SC SCH (21:00)
[2024-05-21] MEDS: CARVedilol 6.25 MG TAB PO SCH (21:00)
[2024-05-21] MEDS: DOCUSATE SODIUM 100MG CAPSULE PO SCH (21:04)
[2024-05-21] MEDS: ATORVASTATIN 20 MG TAB PO SCH (21:04)
[2024-05-21] MEDS: HEPARIN SOD (PORCINE) 5000UNITS/ML 1ML VIAL/SYRINGE SQ SCH (21:04)
[2024-05-21] MEDS: MIRTAZAPINE 7.5MG PER 1/2 TABLET PO SCH (21:29)
[2024-05-21 23:33] VITALS: BP 145/67; TEMP 97.9; O2SAT 96
[2024-05-22] VITALS (8 sets, daily range): BP systolic 121–198; BP diastolic 58–81; TEMP 97–98; O2SAT 92–98
[2024-05-22] MEDS: LEVOTHYROXINE 25MCG TABLET (0.025MG) PO SCH (06:04)
[2024-05-22 06:33] LABS: HEMATOCRIT 38.2 % (36.0-47.0); HEMOGLOBIN 12.5 g/dl (12.0-15.5); MEAN CORPUSCULAR HEMOGLOBIN 26.7 pg (27.0-33.0); MEAN CORPUSCULAR HGB CONC 32.7 g/dl (32.0-36.5); MEAN CORPUSCULAR VOLUME 81.4 fl (80.0-96.0); PLATELET COUNT, AUTOMATED 140 10^3/uL (150-450); RED BLOOD COUNT 4.69 10^6/uL (4.00-5.40); WHITE BLOOD COUNT 5.9 10^3/uL (4.0-10.0)
[2024-05-22 06:56] LABS: CALCIUM LEVEL 8.6 MG/DL (8.3-10.6); CREATININE FOR GFR 1.12 MG/DL (0.55-1.30); GLOMERULAR FILTRATION RATE 50.6 (>39)
[2024-05-22] MEDS: INSULIN LISPRO (NovoLOG) PER UNIT SC SCH (07:30)
[2024-05-22] MEDS: buPROPion 75 MG TAB PO SCH (08:40)
[2024-05-22] MEDS: SERTRALINE 100 MG TAB PO SCH (08:40)
[2024-05-22] MEDS: LOSARTAN 50MG TABLET PO SCH (08:41)
[2024-05-22] MEDS ORDERED: ATORVASTATIN 20 MG TAB PO SCH (09:00)
[2024-05-22] MEDS ORDERED: ALBUTEROL SULFATE 2.5MG/0.5ML INH NEB SOLN NEB PRN (11:15)
[2024-05-22] MEDS: ALBUTEROL 90 MCG/ACT 8GM HFA INHALER INH SCH (11:44)
[2024-05-22] MEDS: MECLIZINE 25 MG TABLET PO SCH (13:22)
[2024-05-22] MEDS: VITAMIN D 50,000 UNITS CAPSULE (ERGOCALCIFEROL 1.25MG) PO SCH (17:22)
[2024-05-22] MEDS: ASPIRIN 81MG ENTERIC TABLET PO SCH (21:07)
[2024-05-22] MEDS: OMEPRAZOLE 20MG CAP PO SCH (21:07)
[2024-05-22] MEDS: LORATADINE 10 MG TAB PO SCH (21:07)
[2024-05-22] MEDS: LEVEMIR (INSULIN DETEMIR) 1 UNITS/0.01ML SC SCH (21:08)
[2024-05-23] VITALS: BP 145/68; TEMP 97.1; O2SAT 95
[2024-05-23 03:24] VITALS: BP 143/66; TEMP 98; O2SAT 93
[2024-05-23 07:33] VITALS: BP 158/82; TEMP 96.9; O2SAT 97
[2024-05-23 08:10] VITALS: BP 158/82
[2024-05-23] MEDS ORDERED: MECL-86 PO (10:50)
[2024-05-24] MEDS ORDERED: ALENDRONATE 35MG TABLET PO SCH (07:00)
== END 2024-05-23 14:10 | disposition home or self-care (01) | DRG 149 ==
LOC: M ED 11:28 → M ED INP 17:19 → M PCU 20:45
PROVIDERS: ADMIT Student in an Organized Health Care Education/Training Program; ATTEND Student in an Organized Health Care Education/Training Program
PROC: B246ZZZ Ultrasonography of Right and Left Heart (ICD-10-PCS; principal; 2024-05-22)
DX: H81.90 Unspecified disorder of vestibular function, unspecified ear (principal); H46.9 Unspecified optic neuritis; E21.1 Secondary hyperparathyroidism, not elsewhere classified; R29.6 Repeated falls; N18.31 Chronic kidney disease, stage 3a; I12.9 Hypertensive chronic kidney disease with stage 1 through stage 4 chronic kidney disease, or unspecified chronic kidney disease; E78.5 Hyperlipidemia, unspecified; M81.0 Age-related osteoporosis without current pathological fracture; I95.1 Orthostatic hypotension; J45.909 Unspecified asthma, uncomplicated; K21.9 Gastro-esophageal reflux disease without esophagitis; Z66 Do not resuscitate; F32.A Depression, unspecified; E55.9 Vitamin D deficiency, unspecified; E11.22 Type 2 diabetes mellitus with diabetic chronic kidney disease; E03.9 Hypothyroidism, unspecified; H35.30 Unspecified macular degeneration; N39.46 Mixed incontinence; Z90.49 Acquired absence of other specified parts of digestive tract; Z98.41 Cataract extraction status, right eye; Z98.42 Cataract extraction status, left eye; Z87.891 Personal history of nicotine dependence; Z79.82 Long term (current) use of aspirin; Z79.4 Long term (current) use of insulin; Z79.890 Hormone replacement therapy; Z79.899 Other long term (current) drug therapy; Z88.8 Allergy status to other drugs, medicaments and biological substances

== ENCOUNTER 2024-11-04 15:39 | Emergency (ER) | payer MEDICARE, MEDICAID ==
[~2024-11-04] VITALS: Ht 154.9 cm; Wt 77.3 kg
[~2024-11-04 15:39] MED LIST changes: +ALBU8.5H INH; +BUPR75TA5 PO; +MIRT1TAB PO; +TIRZ5PEN SQ
[2024-11-04 18:34] VITALS: BP 153/91; TEMP 99.6; O2SAT 96
[2024-11-04] MEDS ORDERED: VENTAER INH (18:54)
[2024-11-04] MEDS ORDERED: BENZ200C70 PO (18:54)
== END 2024-11-04 18:59 | disposition home or self-care (01) ==
LOC: M ED 15:39 → EDSEX 15:39 → EDBD 15:39 → M ED 18:59
DX: J06.9 Acute upper respiratory infection, unspecified (principal); I25.2 Old myocardial infarction; E11.9 Type 2 diabetes mellitus without complications; I10 Essential (primary) hypertension; J45.909 Unspecified asthma, uncomplicated; J44.9 Chronic obstructive pulmonary disease, unspecified; E78.5 Hyperlipidemia, unspecified; K21.9 Gastro-esophageal reflux disease without esophagitis; K52.9 Noninfective gastroenteritis and colitis, unspecified; Z86.73 Personal history of transient ischemic attack (TIA), and cerebral infarction without residual deficits; Z79.4 Long term (current) use of insulin; Z79.82 Long term (current) use of aspirin; Z88.8 Allergy status to other drugs, medicaments and biological substances

== ENCOUNTER → 2024-12-05 | Outpatient (REF) | payer MEDICARE, OTHER, MEDICAID ==
[~2024-12-05] MED LIST changes: +BENZ200C70 PO; +VENTAER INH
== END ==
LOC: M LAB REF 12:37
PROVIDERS: ATTEND Internal Medicine
DX: M19.90 Unspecified osteoarthritis, unspecified site (principal)

== ENCOUNTER 2025-01-09 12:58 | Inpatient (IN) | payer MEDICARE, MEDICAID ==
[2025-01-09] VITALS (12 sets, daily range): BP systolic 152–199; BP diastolic 60–84; TEMP 97.6; O2SAT 91–97
[~2025-01-09] VITALS: Ht 157.5 cm; Wt 80.4 kg
[2025-01-09] MEDS: LOSARTAN 50MG TABLET PO SCH (09:00)
[2025-01-09] MEDS: ACETAMINOPHEN 325 MG TAB PO ONE (14:46)
[2025-01-09 14:48] LABS: VENOUS BASE EXCESS -3.7 (-2.0-2.0); VENOUS HCO3 19.8 MMOL/L (23.0-27.0); VENOUS PARTIAL PRESSURE CO2 31.7 mmHg (38.0-50.0); VENOUS PARTIAL PRESSURE O2 74.3 mmHg (30.0-50.0); VENOUS PH 7.413 UNITS (7.330-7.430); VENOUS STANDARD HCO3 21.3 MMOL/L; VENOUS TOTAL CO2 20.8 MMOL/L (24.0-28.0)
[2025-01-09 14:49] LABS: BASO # 0.1 10^3/uL (0.0-0.2); BASO % 0.8 % (0.0-1.0); EOS # 0.2 10^3/uL (0.0-0.5); HEMATOCRIT 40.5 % (36.0-47.0); HEMOGLOBIN 13.2 g/dl (12.0-15.5); LYMPH # 1.4 10^3/uL (1.5-5.0); LYMPH % 17.9 % (24.0-44.0); MEAN CORPUSCULAR HEMOGLOBIN 26.6 pg (27.0-33.0); MEAN CORPUSCULAR HGB CONC 32.6 g/dl (32.0-36.5); MEAN CORPUSCULAR VOLUME 81.5 fl (80.0-96.0); MONO # 0.9 10^3/uL (0.0-0.8); MONO % 10.8 % (2.0-8.0); NEUTROPHILS # 5.5 10^3/uL (1.5-8.5); NEUTROPHILS % 68.2 % (36.0-66.0); PLATELET COUNT, AUTOMATED 176 10^3/uL (150-450); RED BLOOD COUNT 4.97 10^6/uL (4.00-5.40)
[2025-01-09] MEDS: hydrALAZINE 20MG/ML 1ML VIAL IV ONE ×2 (14:51→16:09)
[2025-01-09 15:00] LABS: INR 1.1; PROTHROMBIN TIME 14.5 SECONDS (12.5-14.5)
[2025-01-09] MEDS ORDERED: ISOVUE-370 76% 100ML VIAL As Ordered ONE (15:05)
[2025-01-09 15:19] LABS: THYROXINE (T4) 8.3 UG/DL (4.5-10.9)
[2025-01-09 15:20] LABS: THYROID STIMULATING HORMONE 5.232 uIU/ML (0.55-4.78)
[2025-01-09 15:30] LABS: ALBUMIN 3.6 G/DL (3.2-5.2); BILIRUBIN,DIRECT 0.3 MG/DL (<0.4); BILIRUBIN,TOTAL 1.1 MG/DL (0.3-1.2); CALCIUM LEVEL 8.3 MG/DL (8.3-10.6); CK-MB VALUE MASS 1.7 NG/ML (<3.6); CREATININE FOR GFR 1.12 MG/DL (0.55-1.30); GLOMERULAR FILTRATION RATE 50.5 (>39); MB/CK RELATIVE INDEX 2.09 (< OR =4); POTASSIUM SERUM 5.6 MMOL/L (3.5-5.1)
[2025-01-09] MEDS: LOSARTAN 50MG TABLET PO ONE (16:08)
[2025-01-09 16:40] LABS: CK-MB VALUE MASS 1.3 NG/ML (<3.6)
[2025-01-09 16:45] LABS: MB/CK RELATIVE INDEX 2.65 (< OR =4); POTASSIUM SERUM 3.7 MMOL/L (3.5-5.1)
[2025-01-09] MEDS: FUROSEMIDE 40MG/4ML VIAL IV SCH (17:00)
[2025-01-09] MEDS: FUROSEMIDE 40MG/4ML VIAL IV ONE (17:51)
[2025-01-09] MEDS ORDERED: OMEP-173 PO (18:05)
[2025-01-09] MEDS ORDERED: LANTINJ4 INJ (18:05)
[2025-01-09] MEDS ORDERED: AMOX875T PO (18:09)
[2025-01-09] MEDS ORDERED: BENZ-18 PO (18:09)
[2025-01-09] MEDS ORDERED: AZIT-12 PO (18:09)
[2025-01-09] MEDS ORDERED: HOME MED LIST COMPLETE! XX SCH (18:10)
[2025-01-09] MEDS ORDERED: ATROPINE SULF 0.4 MG/ML 1ML VIAL IV PRN (18:25)
[2025-01-09 19:13] LABS: FREE T3 3.7 PG/ML (2.3-4.2)
[2025-01-09 19:14] LABS: FREE T4 1.19 NG/DL (0.89-1.76)
[2025-01-09] MEDS: ALBUTEROL SULFATE 2.5MG/0.5ML INH NEB SOLN NEB SCH (19:53)
[2025-01-09] MEDS: hydrALAZINE 20MG/ML 1ML VIAL IV PRN (21:30)
[2025-01-09] MEDS: PIPERACILLIN/TAZOBACTAM SOD 4.5 GM in DEXTROSE 5% (D5W) ADV/MINI-BAG 50 ML IV SCH (21:30)
[2025-01-09] MEDS: LEVOTHYROXINE 100MCG (0.1MG) 5ML SDV PF (SOLUTION FORM) IV SCH (21:32)
[2025-01-09] MEDS: ONDANSETRON 4MG 2ML VIAL IV ONE (23:12)
[2025-01-10] VITALS (87 sets, daily range): BP systolic 134–204; BP diastolic 61–90; TEMP 97.2–99.8; O2SAT 91–99
[2025-01-10 05:02] LABS: BASO # 0.1 10^3/uL (0.0-0.2); BASO % 0.6 % (0.0-1.0); EOS % 0.2 % (0.0-3.0); HEMATOCRIT 43.3 % (36.0-47.0); HEMOGLOBIN 13.6 g/dl (12.0-15.5); LYMPH # 1.4 10^3/uL (1.5-5.0); LYMPH % 13.5 % (24.0-44.0); MEAN CORPUSCULAR HEMOGLOBIN 25.7 pg (27.0-33.0); MEAN CORPUSCULAR HGB CONC 31.4 g/dl (32.0-36.5); MEAN CORPUSCULAR VOLUME 81.7 fl (80.0-96.0); MONO # 1.2 10^3/uL (0.0-0.8); MONO % 11.9 % (2.0-8.0); NEUTROPHILS # 7.5 10^3/uL (1.5-8.5); NEUTROPHILS % 73.5 % (36.0-66.0); PLATELET COUNT, AUTOMATED 239 10^3/uL (150-450); WHITE BLOOD COUNT 10.2 10^3/uL (4.0-10.0)
[2025-01-10 05:24] LABS: CK-MB VALUE MASS 1.9 NG/ML (<3.6)
[2025-01-10 05:27] LABS: ALBUMIN 3.6 G/DL (3.2-5.2); CALCIUM LEVEL 8.5 MG/DL (8.3-10.6); CREATININE FOR GFR 1.65 MG/DL (0.55-1.30); GLOMERULAR FILTRATION RATE 32.3 (>39); MAGNESIUM LEVEL 2.4 MG/DL (1.8-2.4); POTASSIUM SERUM 4.2 MMOL/L (3.5-5.1); TOTAL PROTEIN 6.7 G/DL (5.7-8.2)
[2025-01-10 05:32] LABS: PROCALCITONIN 0.13 ng/ml
[2025-01-10 05:37] LABS: MB/CK RELATIVE INDEX 3.45 (< OR =4)
[2025-01-10] MEDS: PANTOPRAZOLE 40MG VIAL IV SCH (08:23)
[2025-01-10] MEDS: ENOXAPARIN 40MG/0.4ML SYRINGE (J1650 PER 10MG) SC SCH (08:24)
[2025-01-10] MEDS: FUROSEMIDE 40MG/4ML VIAL IV SCH (08:26)
[2025-01-10] MEDS ORDERED: GLUCAGON INJ 1MG VIAL SC PRN (12:05)
[2025-01-10] MEDS ORDERED: GLUCOSE 4 GM CHEW PO PRN (12:05)
[2025-01-10] MEDS ORDERED: DEXTROSE 50% 50ML SYRINGE IV PRN (12:05)
[2025-01-10] MEDS: INSULIN LISPRO (NovoLOG) PER UNIT SC SCH ×2 (17:34→20:12)
[2025-01-10 21:43] LABS: CK-MB VALUE MASS 4.3 NG/ML (<3.6)
[2025-01-10 21:46] LABS: MB/CK RELATIVE INDEX 2.38 (< OR =4)
[2025-01-11] VITALS (39 sets, daily range): BP systolic 123–207; BP diastolic 56–81; TEMP 97.2–98.1; O2SAT 91–99
[2025-01-11 05:25] LABS: BASO # 0.1 10^3/uL (0.0-0.2); BASO % 0.8 % (0.0-1.0); EOS # 0.3 10^3/uL (0.0-0.5); HEMATOCRIT 36.6 % (36.0-47.0); LYMPH # 1.9 10^3/uL (1.5-5.0); LYMPH % 22.4 % (24.0-44.0); MEAN CORPUSCULAR HEMOGLOBIN 26.4 pg (27.0-33.0); MEAN CORPUSCULAR HGB CONC 31.7 g/dl (32.0-36.5); MEAN CORPUSCULAR VOLUME 83.2 fl (80.0-96.0); MONO # 1.2 10^3/uL (0.0-0.8); MONO % 14.2 % (2.0-8.0); NEUTROPHILS # 4.9 10^3/uL (1.5-8.5); NEUTROPHILS % 58.2 % (36.0-66.0); PLATELET COUNT, AUTOMATED 156 10^3/uL (150-450); WHITE BLOOD COUNT 8.3 10^3/uL (4.0-10.0)
[2025-01-11 05:52] LABS: ALBUMIN 3.1 G/DL (3.2-5.2); BILIRUBIN,TOTAL 0.6 MG/DL (0.3-1.2); CALCIUM LEVEL 8.2 MG/DL (8.3-10.6); CREATININE FOR GFR 2.15 MG/DL (0.55-1.30); GLOMERULAR FILTRATION RATE 23.8 (>39); MAGNESIUM LEVEL 2.5 MG/DL (1.8-2.4)
[2025-01-11 05:54] LABS: HEMOGLOBIN 11.6 g/dl (12.0-15.5)
[2025-01-11] MEDS: LR 1,000 ML IV SCH (10:08)
[2025-01-11] MEDS: ACETAMINOPHEN *IV* 1,000 MG in IV 1 EA IV ONE (12:18)
[2025-01-11] MEDS ORDERED: MIDAZOLAM INJ 2MG/2ML VIAL As Ordered ONE (14:24)
[2025-01-11] MEDS ORDERED: fentaNYL 100 MCG/2 ML INJECTION As Ordered ONE (14:24)
[2025-01-11] MEDS ORDERED: ceFAZolin SOD 2 GM in IV 1 EA IV ONE (15:00)
[2025-01-11] MEDS: ceFAZolin 1GM VIAL As Ordered ONE (15:04)
[2025-01-11] MEDS: LIDOCAINE 1% SDV 30ML VIAL As Ordered ONE (15:10)
[2025-01-11] MEDS ORDERED: propofoL 200 MG/20 ML VIAL As Ordered ONE (15:28)
[2025-01-11] MEDS ORDERED: hydrALAZINE 20MG/ML 1ML VIAL As Ordered ONE (16:49)
[2025-01-11] MEDS: AMIODARONE HCL 360 MG/200 ML PREMIXED BAG (NEXTERONE) As Ordered ONE (16:49)
[2025-01-11] MEDS: ISOVUE-300 61% 100ML VIAL As Ordered ONE (16:49)
[2025-01-11] MEDS: ceFAZolin SOD 2 GM IV ONCE IV ONE (16:50)
[2025-01-11] MEDS ORDERED: ONDANSETRON 4MG 2ML VIAL As Ordered ONE (17:09)
[2025-01-11] MEDS ORDERED: FUROSEMIDE 40MG/4ML VIAL As Ordered ONE (17:15)
[2025-01-11] MEDS: ONDANSETRON 4MG 2ML VIAL IV PRN (17:20)
[2025-01-11] MEDS: FUROSEMIDE 40MG/4ML VIAL IV ONE ×2 (17:25→21:46)
[2025-01-11] MEDS: METOCLOPRAMIDE INJ 10MG/2ML VIAL IV STA (17:31)
[2025-01-11] MEDS ORDERED: ACETAMINOPHEN 325 MG TAB PO PRN (17:35)
[2025-01-11] MEDS: PROMETHAZINE 25MG/ML 1ML VIAL IV PRN (18:05)
[2025-01-11] MEDS: amLODIPine 5 MG TAB PO ONE ×2 (18:16→20:30)
[2025-01-11] MEDS: CARVedilol 6.25 MG TAB PO SCH (19:02)
[2025-01-11] MEDS: CARVedilol 12.5 MG TAB PO STA (19:33)
[2025-01-11] MEDS: traMADol 50 MG TAB PO PRN (19:40)
[2025-01-11] MEDS: NITROGLYCERIN 2% OINT 1 GM *U/D* PKT TOP SCH (20:00)
[2025-01-11] MEDS: ceFAZolin SOD 1 GM in DEXTROSE 5% (D5W) ADV/MINI-BAG 50 ML IV SCH (21:46)
[2025-01-12] VITALS (9 sets, daily range): BP systolic 126–171; BP diastolic 58–92; TEMP 96.8–98.5; O2SAT 94–98
[2025-01-12 02:44] LABS: HEMOGLOBIN 12.5 g/dl (12.0-15.5); MEAN CORPUSCULAR HEMOGLOBIN 26.5 pg (27.0-33.0); MEAN CORPUSCULAR HGB CONC 32.1 g/dl (32.0-36.5); MEAN CORPUSCULAR VOLUME 82.8 fl (80.0-96.0); PLATELET COUNT, AUTOMATED 151 10^3/uL (150-450); RED BLOOD COUNT 4.71 10^6/uL (4.00-5.40); WHITE BLOOD COUNT 9.8 10^3/uL (4.0-10.0)
[2025-01-12] MEDS: ACETAMINOPHEN *IV* 1,000 MG in IV 1 EA IV ONE (03:06)
[2025-01-12 06:04] LABS: BASO # 0.1 10^3/uL (0.0-0.2); BASO % 0.7 % (0.0-1.0); EOS # 0.4 10^3/uL (0.0-0.5); EOS % 4.8 % (0.0-3.0); HEMATOCRIT 37.1 % (36.0-47.0); HEMOGLOBIN 11.9 g/dl (12.0-15.5); LYMPH # 1.3 10^3/uL (1.5-5.0); LYMPH % 15.3 % (24.0-44.0); MEAN CORPUSCULAR HGB CONC 32.1 g/dl (32.0-36.5); MEAN CORPUSCULAR VOLUME 81.2 fl (80.0-96.0); MONO % 11.2 % (2.0-8.0); NEUTROPHILS # 5.9 10^3/uL (1.5-8.5); NEUTROPHILS % 67.5 % (36.0-66.0); PLATELET COUNT, AUTOMATED 167 10^3/uL (150-450); RED BLOOD COUNT 4.57 10^6/uL (4.00-5.40); WHITE BLOOD COUNT 8.7 10^3/uL (4.0-10.0)
[2025-01-12 06:33] LABS: ALBUMIN 3.2 G/DL (3.2-5.2); BILIRUBIN,TOTAL 0.6 MG/DL (0.3-1.2); CALCIUM LEVEL 8.1 MG/DL (8.3-10.6); CREATININE FOR GFR 1.47 MG/DL (0.55-1.30); GLOMERULAR FILTRATION RATE 36.9 (>39); POTASSIUM SERUM 3.5 MMOL/L (3.5-5.1); TOTAL PROTEIN 6.2 G/DL (5.7-8.2)
[2025-01-12] MEDS: TORSEMIDE 10 MG TABLET PO SCH (08:33)
[2025-01-12] MEDS ORDERED: OMEPRAZOLE 20MG CAP PO SCH (09:00)
[2025-01-12] MEDS: POTASSIUM CHLORIDE 10MEQ SR TABLET PO SCH (10:25)
[2025-01-12] MEDS: CARVedilol 12.5 MG TAB PO SCH (10:26)
[2025-01-12] MEDS: LOSARTAN 50MG TABLET PO SCH (10:27)
[2025-01-12] MEDS: amLODIPine 5 MG TAB PO SCH (10:27)
[2025-01-12] MEDS: ATORVASTATIN 20 MG TAB PO SCH (12:46)
[2025-01-12] MEDS: buPROPion 75 MG TAB PO SCH (12:46)
[2025-01-12] MEDS: SERTRALINE 100 MG TAB PO SCH (12:47)
[2025-01-12] MEDS: ASPIRIN 81MG ENTERIC TABLET PO SCH (21:13)
[2025-01-12] MEDS: MIRTAZAPINE 7.5MG PER 1/2 TABLET PO SCH (21:13)
[2025-01-12] MEDS: LORATADINE 10 MG TAB PO SCH (21:14)
[2025-01-13] VITALS (12 sets, daily range): BP systolic 138–180; BP diastolic 52–72; TEMP 97–98.6; O2SAT 92–99
[2025-01-13] MEDS: LEVOTHYROXINE 25MCG TABLET (0.025MG) PO SCH (06:05)
[2025-01-13 06:47] LABS: BASO % 0.6 % (0.0-1.0); EOS # 0.5 10^3/uL (0.0-0.5); EOS % 6.6 % (0.0-3.0); HEMOGLOBIN 11.7 g/dl (12.0-15.5); LYMPH # 1.6 10^3/uL (1.5-5.0); LYMPH % 22.4 % (24.0-44.0); MEAN CORPUSCULAR HEMOGLOBIN 25.9 pg (27.0-33.0); MEAN CORPUSCULAR HGB CONC 31.6 g/dl (32.0-36.5); MEAN CORPUSCULAR VOLUME 81.9 fl (80.0-96.0); MONO # 0.9 10^3/uL (0.0-0.8); MONO % 12.9 % (2.0-8.0); NEUTROPHILS % 57.2 % (36.0-66.0); PLATELET COUNT, AUTOMATED 130 10^3/uL (150-450); RED BLOOD COUNT 4.52 10^6/uL (4.00-5.40); WHITE BLOOD COUNT 6.9 10^3/uL (4.0-10.0)
[2025-01-13 07:13] LABS: BLOOD UREA NITROGEN 23 MG/DL (9-23); CALCIUM LEVEL 8.1 MG/DL (8.3-10.6); CARBON DIOXIDE LEVEL 29 MMOL/L (20-31); CHLORIDE LEVEL 107 MMOL/L (98-107); CREATININE FOR GFR 0.96 MG/DL (0.55-1.30); GLOMERULAR FILTRATION RATE > 60.0 (>39); GLUCOSE, FASTING 111 MG/DL (74-106); PHOSPHORUS LEVEL 2.8 MG/DL (2.4-5.1); POTASSIUM SERUM 3.9 MMOL/L (3.5-5.1); SODIUM LEVEL 142 MMOL/L (136-145)
[2025-01-13] MEDS: HEPARIN SOD (PORCINE) 5000UNITS/ML 1ML VIAL/SYRINGE SQ SCH (09:36)
[2025-01-13] MEDS: OMEPRAZOLE 20MG CAP PO SCH (09:36)
[2025-01-13] MEDS: LOSARTAN 50MG TABLET PO SCH (20:31)
[2025-01-14] VITALS (11 sets, daily range): BP systolic 150–170; BP diastolic 62–84; TEMP 97.2–98.2; O2SAT 92–97
[2025-01-14 06:19] LABS: HEMATOCRIT 38.2 % (36.0-47.0); MEAN CORPUSCULAR HEMOGLOBIN 25.8 pg (27.0-33.0); MEAN CORPUSCULAR HGB CONC 31.4 g/dl (32.0-36.5); PLATELET COUNT, AUTOMATED 136 10^3/uL (150-450); RED BLOOD COUNT 4.66 10^6/uL (4.00-5.40); WHITE BLOOD COUNT 6.1 10^3/uL (4.0-10.0)
[2025-01-14 06:51] LABS: ALBUMIN 3.1 G/DL (3.2-5.2); BLOOD UREA NITROGEN 24 MG/DL (9-23); CALCIUM LEVEL 8.3 MG/DL (8.3-10.6); CARBON DIOXIDE LEVEL 30 MMOL/L (20-31); CHLORIDE LEVEL 105 MMOL/L (98-107); CREATININE FOR GFR 0.91 MG/DL (0.55-1.30); GLOMERULAR FILTRATION RATE > 60.0 (>39); GLUCOSE, FASTING 116 MG/DL (74-106); MAGNESIUM LEVEL 2.1 MG/DL (1.8-2.4); PHOSPHORUS LEVEL 3.5 MG/DL (2.4-5.1); POTASSIUM SERUM 4.2 MMOL/L (3.5-5.1); SODIUM LEVEL 142 MMOL/L (136-145)
[2025-01-14] MEDS ORDERED: ALBUTEROL SULFATE 2.5MG/0.5ML INH NEB SOLN NEB PRN (09:30)
[2025-01-14] MEDS: CARVedilol 12.5 MG TAB PO STA (10:20)
[2025-01-14] MEDS ORDERED: LOSA50TA28 PO (11:38)
[2025-01-14] MEDS ORDERED: CORE25TA PO (11:38)
[2025-01-14] MEDS ORDERED: POTA-136 PO (11:38)
[2025-01-14] MEDS ORDERED: TORS10TA3 PO (11:38)
[2025-01-14] MEDS ORDERED: AMLO1TAB25 PO (12:13)
[2025-01-14] MEDS ORDERED: CARVedilol 12.5 MG TAB PO SCH (21:00)
== END 2025-01-14 15:18 | disposition home health service (06) | DRG 242 ==
LOC: M ED 12:58 → M ED INP 17:48 → M ICU 20:47 → M PCU 01-11 22:58
PROVIDERS: ADMIT Internal Medicine Critical Care Medicine; ATTEND Student in an Organized Health Care Education/Training Program
PROC: 0JH606Z Insertion of Pacemaker, Dual Chamber into Chest Subcutaneous Tissue and Fascia, Open Approach (ICD-10-PCS; 2025-01-11)
PROC: 02HK3JZ Insertion of Pacemaker Lead into Right Ventricle, Percutaneous Approach (ICD-10-PCS; 2025-01-11)
PROC: 02H63JZ Insertion of Pacemaker Lead into Right Atrium, Percutaneous Approach (ICD-10-PCS; principal; 2025-01-11 14:30)
DX: I44.2 Atrioventricular block, complete (principal); I50.33 Acute on chronic diastolic (congestive) heart failure; J90 Pleural effusion, not elsewhere classified; N17.9 Acute kidney failure, unspecified; I13.0 Hypertensive heart and chronic kidney disease with heart failure and stage 1 through stage 4 chronic kidney disease, or unspecified chronic kidney disease; I16.0 Hypertensive urgency; I27.20 Pulmonary hypertension, unspecified; J44.9 Chronic obstructive pulmonary disease, unspecified; I27.81 Cor pulmonale (chronic); E03.9 Hypothyroidism, unspecified; J45.909 Unspecified asthma, uncomplicated; E11.9 Type 2 diabetes mellitus without complications; I35.0 Nonrheumatic aortic (valve) stenosis; Z68.32 Body mass index [BMI] 32.0-32.9, adult; E66.9 Obesity, unspecified; E21.1 Secondary hyperparathyroidism, not elsewhere classified; E78.5 Hyperlipidemia, unspecified; K21.9 Gastro-esophageal reflux disease without esophagitis; R00.1 Bradycardia, unspecified; E87.6 Hypokalemia; G47.33 Obstructive sleep apnea (adult) (pediatric); N18.31 Chronic kidney disease, stage 3a; F32.A Depression, unspecified; H35.30 Unspecified macular degeneration; Z87.891 Personal history of nicotine dependence; Z79.82 Long term (current) use of aspirin; Z79.899 Other long term (current) drug therapy; Z79.4 Long term (current) use of insulin; Z79.890 Hormone replacement therapy

== ENCOUNTER → 2025-05-18 | Outpatient (CLI) | payer MEDICARE, MEDICAID ==
[~2025-05-18] MED LIST changes: +AMLO1TAB25 PO; +AMMO12CR4 TOP; -AMMO12CR7 TOP; +AZIT-12 PO; +BENZ-18 PO; +CORE25TA PO; +LANTINJ4 INJ; +OMEP-173 PO; +POTA-136 PO; -PREG50CA PO; +PREG50CA87 PO; +TORS10TA3 PO
== END ==
LOC: M WUC 09:51
PROVIDERS: ATTEND Nurse Practitioner Family
DX: R06.02 Shortness of breath (principal)

== ENCOUNTER → 2025-07-28 | Outpatient (CLI) | payer MEDICARE, MEDICAID | LOC: M RAD 12:39 | PROVIDERS: ATTEND Nurse Practitioner Family | DX: R60.0 Localized edema (principal) ==

== ENCOUNTER → 2025-08-11 | Outpatient (CLI) | payer MEDICARE, MEDICAID ==
[~2025-08-11] MED LIST changes: +ISOVUE-370 76% 100 ML VIAL As Ordered ONE
== END ==
LOC: M RAD 09:31
PROVIDERS: ATTEND Internal Medicine
DX: R60.0 Localized edema (principal); R14.0 Abdominal distension (gaseous)
CPT/HCPCS: 74177; Q9967

== ENCOUNTER → 2025-09-29 | Outpatient (CLI) | payer MEDICARE, MEDICAID ==
[~2025-09-29] MED LIST changes: +BUPR-363 PO; -BUPR75TA5 PO; -ISOVUE-370 76% 100 ML VIAL As Ordered ONE
== END ==
LOC: M CARPUL 13:39
PROVIDERS: ATTEND Registered Nurse
DX: R06.02 Shortness of breath (principal); I35.1 Nonrheumatic aortic (valve) insufficiency

== ENCOUNTER → 2025-11-06 | Outpatient (CLI) | payer MEDICARE, MEDICAID | LOC: M WUC 10:50 | PROVIDERS: ATTEND Internal Medicine | DX: R06.00 Dyspnea, unspecified (principal) ==